=== PATIENT | male | born 1940 | race Caucasian/White ===

== ENCOUNTER → 2018-09-11 | Outpatient (CLI) | payer MEDICARE ==
[~2018-09-11] MED LIST: ASPIR 8181 MG PO; AVODART0.5 MG PO; BYSTOLIC10 MG PO; BYSTOLIC2.5 MG PO; CELEBREX100 MG PO; FLOMAX0.4 MG PO; LEXAPRO10 MG PO; LIPITOR20 MG PO; MINOCYCLINE HCL50 MG PO; OSTEO BI-FLEX1 EAC2 PO; PLAVIX75 MG PO; STOOL SOFTENER50 MG PO; TYLENOL325 MG PO; VITAMIN B COMP1 EACH PO; WELLBUTRIN SR150 MG PO
--- NOTE | 2018-09-11 15:36 | Diagnostic Imaging Report ---
History: Fatigue Comparison studies: CT head and MRI brain 08/11/2010 Technique: Sagittal T2; axial DWI, FLAIR, MPGR, T1, Coronal FLAIR. Intravenous contrast: None Findings: Scalp: Normal in signal . No masses . Bone marrow: Normal in signal intensity. Extra-axial: No masses, no fluid collections. Brain sulci: Appropriate for age. Ventricles: Asymmetric exvacuodilatation of the left lateral ventricle . No hydrocephalus . Parenchyma: Scattered and confluent T2/flair hyperintensities of the periventricular and the white matter. Cortical-based T2/hyperintensity at the left mid frontal and precentral gyri with associated volume loss No masses, hemorrhage, acute or chronic vascular insults. Suprasellar region: No abnormalities. Craniocervical junction: No abnormalities. Patent foramen magnum. No Chiari one malformation. Vessels: Normal flow-voids in the arteries and sinuses.. Partially visualized posterior disc osteophyte complex and ligamentum flavum thickening results in at least moderate canal stenosis at C2-3. Mucous retention cyst at the left maxillary sinus, nonspecific. IMPRESSION: 1. No acute intracranial abnormalities. 2. Moderate chronic microvascular ischemic changes of the white matter. Remote insult at the left middle frontal and inferior precentral gyri. Mild diffuse volume loss 3. Partially visualized moderate canal stenosis at C2-3 Signed by: DR Nando Boykin M.D. on 09/11/2018 3:33 PM
== END ==
LOC: MRI 13:45
PROVIDERS: ATTEND Radiology Neuroradiology
DX: I63.132 Cerebral infarction due to embolism of left carotid artery (principal); G47.61 Periodic limb movement disorder; G31.84 Mild cognitive impairment of uncertain or unknown etiology; R53.83 Other fatigue
CPT/HCPCS: 70551

== ENCOUNTER 2018-11-06 10:32 | Observation (INO) | payer MEDICARE ==
[2018-11-05 11:44] LABS: BASOPHILS % 0.4 % (0.0-1.0); EOSINOPHILS # (AUTO) 0.1 (0.0-0.4); EOSINOPHILS % 1.1 % (0.0-6.0); HEMATOCRIT 43.2 % (38.2-49.6); HEMOGLOBIN 14.5 g/dL (14.0-18.0); LYMPHOCYTES # (AUTO) 1.9 (1.0-3.2); MEAN CORPUSCULAR HEMOGLOBIN 30.2 pg (28-32); MEAN CORPUSCULAR HGB CONC 33.6 g/dL (31-35); MONOCYTES # (AUTO) 0.9 (0.2-0.8); MONOCYTES % 11.5 % (4.4-11.3); NEUTROPHILS # (AUTO) 4.6 (2.1-6.9); NEUTROPHILS % 61.7 % (38.7-80.0); PLATELET COUNT 196 x10e3/uL (140-360); RED CELL DISTRIBUTION WIDTH 15.7 % (11.7-14.4)
[2018-11-05 12:09] LABS: ALANINE AMINOTRANSFERASE 20 IU/L (0-55); ALBUMIN 3.8 g/dL (3.5-5.0); ALBUMIN/GLOBULIN RATIO 1.1 (0.8-2.0); ALKALINE PHOSPHATASE 68 IU/L (40-150); ANION GAP 13.4 mmol/L (8-16); BLOOD UREA NITROGEN 19 mg/dL (7-26); BUN/CREATININE RATIO 18 (6-25); CALCIUM 9.6 mg/dL (8.4-10.2); CARBON DIOXIDE 24 mmol/L (22-29); CHLORIDE 104 mmol/L (98-107); CHOL/HDL RATIO 3.1 (3.9-4.7); CHOLESTEROL 162 MD/DL (0-199); CREATININE, SERUM 1.08 mg/dL (0.72-1.25); EST GLOMERULAR FILTRATION RATE > 60 ML/MIN (60-); GLUCOSE 73 mg/dL (74-118); HDL CHOLESTEROL 53 MG/DL (40-60); POTASSIUM 4.4 mmol/L (3.5-5.1); SODIUM 137 mmol/L (136-145)
[2018-11-05 13:10] LABS: LDL CHOLESTEROL 92 MG/DL (60-130); TRIGLYCERIDES 86 MG/DL (0-149)
[~2018-11-06] VITALS: Ht 185.4 cm; Wt 99.8 kg
[~2018-11-06 10:32] MED LIST changes: -ASPIR 8181 MG PO; -BYSTOLIC10 MG PO; -MINOCYCLINE HCL50 MG PO; -OSTEO BI-FLEX1 EAC2 PO; -STOOL SOFTENER50 MG PO; -TYLENOL325 MG PO; -VITAMIN B COMP1 EACH PO
--- OUTSIDE RECORDS SUMMARY | 2018-11-06 10:34 | XMS REPORT | Clinical Summary ---
Author Author [facility] Address Unknown Phone Unavailable Care Team Providers Care Service Manager Name Role Phone Winnie Ronquillo MD PCP Allergies No Known Allergies Medications End Date Status Medication Sig Dispensed Refills Start Date Active atorvastatin (LIPITOR) 10 0 06/04/201 MG tablet 7 Active tamsulosin (FLOMAX) 0.4 0 06/04/201 mg capsule,extended 7 release 24hr Active buPROPion XL (WELLBUTRIN 0 XL) 300 MG 24 hr tablet 7 Active BYSTOLIC 5 mg tablet TAKE ONE (1) 3 TABLET(S) BY 7 MOUTH ONCE A DAY. Active dutasteride (AVODART) 0.5 TAKE ONE (1) 1 03/17/201 mg capsule CAPSULE BY 7 MOUTH DAILY. Active celecoxib (CeleBREX) 200 0 06/04/201 MG capsule 7 Active clopidogrel (PLAVIX) 75 TAKE ONE (1) 3 201 mg tablet TABLET(S) BY 7 MOUTH ONCE A DAY. Active aspirin (ECOTRIN) 81 MG Take 81 mg by 0 enteric coated tablet mouth daily. Active vit B complex-vitamin Take 1 tablet 0 C-folic acid (NEPHRO-OSCAR by mouth OTC) 0.8 mg tablet daily. Active Problems Not on file Social History Date Tobacco Use Types Packs/Day Years Used Former Smoker Smokeless Tobacco: Never Used Alcohol Use Drinks/Week oz/Week Comments Yes occasional Sex Assigned at Date Recorded Not on file Industry Job Start Date Occupation Not on file Not on file Not on file Travel End Travel History Travel Start No recent travel history available. Last Filed Vital Signs Not on file Plan of Treatment Health Maintenance Due Date Last Done Comments COLON CANCER SCREENING 1992 SHINGLES VACCINES (1 of 1992 2) PNEUMOCOCCAL 2007 POLYSACCHARIDE VACCINE AGE 65 AND OVER PNEUMOCOCCAL-13 2007 INFLUENZA VACCINE 06/19/2018 Results Not on fileafter 11/05/2017 Insurance Payer Benefit Subscriber ID Type Phone Address Plan / Group UHC MEDICARE [employer] xxxxxxxxx HMO [employer] TRE xxxxxxxx Commercial HEALTH & LIFE Advance Directives Patient has advance care planning documents on file. For more information, odell solares contact: Gary Whitmore [address] [place] [address]
--- OUTSIDE RECORDS SUMMARY | 2018-11-06 10:35 | XMS REPORT | Summary of Care ---
Author Author [facility] Organization [facility] Address Unknown Phone Unavailable Encounter TICO Dubois(SCAR) [id number] Date(s): 12/27/16 - 12/27/16 [facility] [address] [place] [phone]- [phone] Discharge Disposition: Home or Self Care Attending Physician: Chester Carlin MD Vital Signs 1 2 3 Most recent to oldest [Reference Range]: 185.42 cm (12/27/16 5:21 PM) 185.42 cm (12/27/16 4:52 PM) Height 146/88 mmHg *HI* (12/27/16 7:00 PM) 153/85 mmHg *HI* (12/27/16 6:45 PM) 145/90 mmHg *HI* (12/27/16 6:30 PM) Blood Pressure [90-140/60-90 mmHg] 15 BRMIN (12/27/16 7:00 PM) 18 BRMIN (12/27/16 6:45 PM) 15 BRMIN (12/27/16 6:30 PM) Respiratory Rate [14-20 BRMIN] 97.727 kg (12/27/16 5:21 PM) 97.727 kg (12/27/16 4:52 PM) Weight 28.43 m2 (12/27/16 5:21 PM) 28.43 m2 (12/27/16 4:52 PM) Body Mass Index Problem List Condition Effective Dates Status Health Status Informant Stroke(Confirmed) Resolved Hyperlipidemia(Confi Resolved rmed) Hypertension(Confirm Resolved ed) MRSA(Confirmed)1, 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 Allergies, Adverse Reactions, Alerts Substance Reaction Severity Status NKDA Active Medications No Known Medications Results BLOOD BANK RESULTS Most recent to 1 oldest [Reference Range]: ABO/Rh A POS *Unknown* (12/27/16 6:30 PM) Antibody Scrn Negative (12/27/16 6:30 PM) ELECTROLYTES Most recent to 1 oldest [Reference Range]: Sodium Lvl [135-145 141 mEq/L mEq/L] (12/27/16 6:37 PM) Potassium Lvl 4.2 mEq/L [3.5-5.1 mEq/L] (12/27/16 6:37 PM) Chloride Lvl [95-109 107 mEq/L mEq/L] (12/27/16 6:37 PM) CO2 [24-32 mEq/L] 25 mEq/L (12/27/16 6:37 PM) AGAP [10.0-20.0 13.2 mEq/L mEq/L] (12/27/16 6:37 PM) CHEM PANEL Most recent to 1 oldest [Reference Range]: Creatinine Lvl 0.81 mg/dL [0.50-1.40 mg/dL] (12/27/16 6:37 PM) eGFR 88 mL/min/1.73m2 1 *NA* (12/27/16 6:37 PM) BUN [7-22 mg/dL] 20 mg/dL (12/27/16 6:37 PM) B/C Ratio [6-25] 25 (12/27/16 6:37 PM) Glucose Lvl [70-99 98 mg/dL mg/dL] (12/27/16 6:37 PM) Total Protein 5.9 g/dL [6.4-8.4 g/dL] *LOW* (12/27/16 6:37 PM) Albumin Lvl [3.5-5.0 3.0 g/dL g/dL] *LOW* (12/27/16 6:37 PM) Globulin [2.7-4.2 2.9 g/dL g/dL] (12/27/16 6:37 PM) A/G Ratio [0.7-1.6] 1.0 (12/27/16 6:37 PM) Calcium Lvl 8.0 mg/dL [8.5-10.5 mg/dL] *LOW* (12/27/16 6:37 PM) ALT [0-65 unit/L] 31 unit/L (12/27/16 6:37 PM) AST [0-37 unit/L] 25 unit/L (12/27/16 6:37 PM) Alk Phos [39-136 60 unit/L unit/L] (12/27/16 6:37 PM) Bili Total [0.2-1.3 0.3 mg/dL mg/dL] (12/27/16 6:37 PM) 1Result Comment: The eGFR is calculated using the CKD-EPI formula. In most young, healthy individuals the eGFR will be >90 mL/min/1.73m2. The eGFR declines with age. An eGFR of 60-89 may be normal in some populations, particularly the elderly, for whom the CKD-EPI formula has not been extensively validated. Use of the eGFR is not recommended in the following populations: Individuals with unstable creatinine concentrations, including patients and those with serious co-morbid conditions. Patients with extremes in muscle mass or diet. The data above are obtained from the National Kidney Disease Education Program ( NKDEP) which additionally recommends that when the eGFR is used in patients with extremes of body mass index for purposes of drug dosing, the eGFR should be mul tiplied by the estimated BMI. IMMUNOLOGY Most recent to 1 oldest [Reference Range]: Prealbumin 21.8 mg/dL [18.0-45.0 mg/dL] (12/27/16 6:37 PM) HEMATOLOGY Most recent to 1 oldest [Reference Range]: WBC [3.7-10.4 K/CMM] 8.1 K/CMM (12/27/16 6:37 PM) RBC [4.70-6.10 4.32 M/CMM M/CMM] *LOW* (12/27/16 6:37 PM) Hgb [14.0-18.0 g/dL] 13.7 g/dL *LOW* (12/27/16 6:37 PM) Hct [42.0-54.0 %] 41.0 % *LOW* (12/27/16 6:37 PM) MCV [80.0-94.0 fL] 94.9 fL *HI* (12/27/16 6:37 PM) MCH [27.0-31.0 pg] 31.7 pg *HI* (12/27/16 6:37 PM) MCHC [32.0-36.0 33.4 g/dL g/dL] (12/27/16 6:37 PM) RDW [11.5-14.5 %] 14.1 % (12/27/16 6:37 PM) Platelet [133-450 140 K/CMM K/CMM] (12/27/16 6:37 PM) MPV [7.4-10.4 fL] 9.5 fL (12/27/16 6:37 PM) Segs [45.0-75.0 %] 70.5 % (12/27/16 6:37 PM) Lymphocytes 18.2 % [20.0-40.0 %] *LOW* (12/27/16 6:37 PM) Monocytes [2.0-12.0 10.0 % %] (12/27/16 6:37 PM) Eosinophils [0.0-4.0 1.0 % %] (12/27/16 6:37 PM) Basophils [0.0-1.0 0.3 % %] (12/27/16 6:37 PM) Segs-Bands # 5.7 K/CMM [1.5-8.1 K/CMM] (12/27/16 6:37 PM) Lymphocytes # 1.5 K/CMM [1.0-5.5 K/CMM] (12/27/16 6:37 PM) Monocytes # [0.0-0.8 0.8 K/CMM K/CMM] (12/27/16 6:37 PM) Eosinophils # 0.1 K/CMM [0.0-0.5 K/CMM] (12/27/16 6:37 PM) PT [12.0-14.7 13.6 seconds seconds] (12/27/16 6:37 PM) INR [0.85-1.17] 1.02 (12/27/16 6:37 PM) PTT [22.9-35.8 29.5 seconds seconds] (12/27/16 6:37 PM) Immunizations No data available for this section Procedures Procedure Date Related Diagnosis Body Site Biceps tunnel cineplasty Ear operations Fusion of joint of cervical spine with internal fixation by anterior approach Hip joint operations1 Hip replacement Laminectomy2 Shoulder joint operations 110 years ago 2X 3 Social History Social History Type Response Substance Abuse Use: None. Alcohol Current, Type Beer. Frequency: 1-2 times per month. Alcohol use interferes with work or home: No. Drinks more than intended: No. Others hurt by drinking: No. Smoking Status Never smoker; Tobacco use per day: 0; Exposure to Tobacco Smoke None; Cigarette Smoking Last 365 Days No; Reg Smoking Cessation Counseling No Assessment and Plan No data available for this section
--- OUTSIDE RECORDS SUMMARY | 2018-11-06 10:35 | XMS REPORT | Continuity of Care Document ---
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 [facility] DIS[facility] L HIP Active 09/11/2016 [facility] Stroke Resolved Problem 05/24/2018 [facility] Hyperlipidemia Resolved Problem 05/24/2018 [facility] Hypertension Resolved Problem 05/24/2018 [facility] BPH (<span ID="[id number]">Confirmed</span>) Active Problem 05/24/2018 [facility] OSTEOARTHRITIS OF HIP, UNSPECIFIED Active [facility] ILLNESS, UNSPECIFIED Active [facility] Medications Medication Details Route Status Patient Instructions Ordering Provider Order Date Source Plavix 37.5 mg, 0.5 tab, Route: PO, Drug form: TAB, Daily, Dosing Weight 97.727, kg, Start date: 01/02/17 9:00:00 [employer] TECHNICIAN, Duration: 30 day, Stop date: 01/31/17 9:00:00 CDTNotes: (Same As: Plavix) No Longer Active 01/02/2017 [facility] Docusate Sodium 100 MG Oral Capsule [Colace] 100 mg=1 cap, PO, BID, PRN Constipation, # 20 cap, 0 Refill(s) Active 01/01/2017 [facility] vancomycin 1.5 gm, 250 mL, Route: IV, Drug form: INJ, Q12H, Dosing Weight 97.727, kg, Start date: 01/01/17 10:30:00 [employer] SUPPORT TECHNICIAN, Stop date: 01/31/17 10:00:00 CDTNotes: TIME CRITICAL MEDICATION Same as: Vancocin-NS (pre mixed) Infusion rate 2000 mg: infuse over 2.5 hours Inactive 01/01/2017 [facility] Lipitor 20 mg, 1 tab, Route: PO, Drug form: TAB, Daily, Dosing Weight 97.727, kg, Start date: 12/31/16 20:00:00 [employer] SUPPORT TECHNICIAN, Duration: 30 day, Stop date: 01/29/17 20:00:00 CDTNotes: (Same As: Lipitor) No Longer Active 01/01/2017 [facility] fluconazole fluconazole, 400 mg / 2 tablets, Drug form: MISC, Route: PO, Q24H, 12/31/16 16:00:00 [employer] SUPPORT TECHNICIAN, Duration: 30 day, Stop date: 01/29/17 16:00:00 CDT No Longer Active 12/31/2016 [facility] ferrous sulfate 325 mg, 1 tab, Route: PO, Drug form: TAB, ONCE, Start date: 12/31/16 11:05:00 [employer] SUPPORT TECHNICIAN, Stop date: 12/31/16 11:05:00 CSTNotes: Give with food. iron elemental [id number] as ferrous sulfate Dose=___mg eleme ntal iron Inactive 12/31/2016 [facility] Vancomycin 1.25 gm, 250 mL, Route: IV, Drug form: INJ, Q12H, Dosing Weight 97.727, kg, Start date: 12/31/16 10:00:00 [employer] SUPPORT TECHNICIAN, Duration: 30 day, Stop date: 01/29/17 22:00:00 CDTNotes: TIME CRITICAL MEDICATION Same as: Vancocin-NS (premixed) Infusion rate 2000 mg: infuse over 2.5 hours No Longer Active 12/31/2016 [facility] vancomycin + sodium chloride 0.9% INJ 250 mL 1,000 mg, Route: IVPB, [id number], Start date: 12/31/16 9:00:00 W[employer]OWS [employer] SUPPORT TECHNICIAN, Duration: 30 day, Stop date: 01/29/17 21:00:00 CDTNotes: TIME CRITICAL MEDICATION (Same As: Vancocin) Infusion rate 2001 mg: infuse over 2.5 hours MEDICATION WASTE Product Size: 1000 mg Product Wasted: ___ mg Inactive 12/31/2016 [facility] isoniazid 150 MG / Rifampin 300 MG Oral Capsule [Rifamate] 2 cap, Route: PO, Dosing Weight 97.727, kg, Daily, Start date: 12/31/16 9:00:00 [employer] SUPPORT TECHNICIAN, Duration: 30 day, Stop date: 01/29/17 9:00:00 CDT No Longer Active 12/31/2016 [facility] ferrous sulfate 325 mg, 1 tab, Route: PO, Drug form: ECTAB, Daily, Dosing Weight 97.727, kg, Start date: 12/31/16 9:00:00 [employer] SUPPORT TECHNICIAN, Stop date: 01/29/17 9:00:00 CDTNotes: Give with food. "Do Not Crush" No Longer Active 12/31/2016 [facility] sodium chloride 0.9% 1000 ml INJ 1,000 mL 1,000 mL, Rate: 500 ml/hr, Infuse over: 2 hr, Route: IV, Dosing Weight 97.727 kg, Total Volume: 1,000, Start date: 12/31/16 7:55:00 [employer] SUPPORT TECHNICIAN, Duration: 1 doses or times, Stop date: 12/31/16 9:54:00 [employer] SUPPORT TECHNICIAN Inactive 12/31/2016 [facility] Rifampin 600 mg, 4 cap, Route: PO, Drug form: CAP, [id number], Dosing Weight 97.727, kg, Start date: 12/30/16 20:00:00 [employer] SUPPORT TECHNICIAN, Duration: 30 day, Stop date: 01/28/17 20:00:00 CDTNotes: (Same as: Rifadin) No Longer Active 12/31/2016 [facility] Vancomycin 1 gm, Route: IVPB, Drug form: INJ, [id number], Dosing Weight 97.727, kg, Start date: 12/30/16 19:00:00 WINDOWS SERVER SUPPORT TECHNICIAN, Stop date: 01/29/17 21:00:00 CDTNotes: TIME CRITICAL MEDICATION (Same As: Vancocin) Infusion rate 2001 mg: infuse over 2.5 hours MEDICATION WASTE Product Size: 1000 mg Product Wasted: ___ mg No Longer Active 12/31/2016 [facility] Diflucan 400 mg, 8 tab, Route: PO, Drug form: TAB, Daily, Dosing Weight 97.727, kg, Start date: 12/30/16 16:00:00 [employer] SUPPORT TECHNICIAN, Duration: 30 day, Stop date: 01/28/17 16:00:00 CDT, Pediatric DosingNotes: (Same as: Diflucan) No Longer Active 12/30/2016 [facility] Aspirin 325 MG Enteric Coated Tablet 325 mg, 1 tab, Route: PO, Drug form: ECTAB, BID, Dosing Weight 97.727, kg, Start date: 12/30/16 9:00:00 [employer] SUPPORT TECHNICIAN, Duration: 30 day, Stop date: 01/28/17 17:00:00 CDTNotes: (Do Not Crush) Do not crush or chew. No Longer Active 12/30/2016 [facility] Zofran 4 mg, 2 mL, Route: IV, Drug form: INJ, Q8H, Dosing Weight 97.727, kg, Start date: 12/30/16 0:00:00 [employer] SUPPORT TECHNICIAN, Duration: 3 doses or times, Stop date: 12/30/16 16:00:00 CSTNotes: (Same as: Zofran) MEDICATION WASTE Product Size: 4 mg Product Wasted: ___ mg Inactive 12/30/2016 [facility] Vancomycin 1,000 mg, Route: IVPB, Q12H, Dosing Weight 97.727, kg, Time Critical Medication, Start date: 12/29/16 22:00:00 [employer] SUPPORT TECHNICIAN, Duration: 2 doses or times, Stop date: 12/30/16 10:00:00 WINDOWS SERV[employer] SUPPORT TECHNICIAN, Pharmacy to adjust dose for renal functionNotes: TIME CRITICAL MEDICATION (Same As: Vancocin) Infusion rate 2001 mg: infuse over 2.5 hours MEDICATION WASTE Product Size: 1000 mg Product Wasted: ___ mg No Longer Active 12/30/2016 [facility] rivaroxaban 10 mg, Route: PO, Q24H, Dosing Weight 97.727, kg, Start date: 12/29/16 18:33:00 [employer] SUPPORT TECHNICIAN, Duration: 30 day, Stop date: 01/27/17 18:33:00 [employer] SUPPORT TECHNICIAN Inactive 12/30/2016 [facility] Saline Flush 0.9% 10 mL, Route: IVP, Drug Form: INJ, Dosing Weight 97.727, kg, Q8H, Start date: 12/29/16 16:00:00 [employer] SUPPORT TECHNICIAN, Duration: 30 day, Stop date: 01/28/17 8:00:00 CDTNotes: preservative free. No Longer Active 12/29/2016 [facility] Lidocaine Hydrochloride 10 MG/ML Injectable Solution 50 mg, 5 mL, Route: INTRADERM, Drug Form: INJ, Dosing Weight 97.727, kg, ONCALL, Start date: 12/29/16 15:00:00 [employer] SUPPORT TECHNICIAN, Duration: 1 day, Stop date: 12/30/16 14:59:00 CSTNotes: (Same as: Xylocaine) No Longer Active 12/29/2016 [facility] Cefazolin 2 gm, 100 mL, Route: IVPB, Drug form: INJ, Q6H, Dosing Weight 97.727, kg, Start date: 12/29/16 15:00:00 [employer] SUPPORT TECHNICIAN, Duration: 6 doses or times, Stop date: 12/30/16 21:00:00 CSTNotes: Same as: Ancef Inactive 12/29/2016 [facility] Saline Flush 0.9% 10 mL, Route: IVP, Drug Form: INJ, Dosing Weight 97.727, kg, PRN, PRN Line Flush, Start date: 12/29/16 14:46:00 [employer] SUPPORT TECHNICIAN, Duration: 30 day, Stop date: 01/28/17 15:45:00 CDTNotes: preservative free. No Longer Active 12/29/2016 [facility] metoprolol tartrate 12.5 mg, 0.5 tab, Route: PO, Drug form: TAB, Q12H, Dosing Weight 97.727, kg, Start date: 12/29/16 14:00:00 [employer] SUPPORT TECHNICIAN, Duration: 30 day, Stop date: 01/28/17 9:00:00 CDTNotes: (Same as: Lopressor) No Longer Active 12/29/2016 [facility] Hydralazine 10 mg, 0.5 mL, Route: IVP, Drug form: INJ, Q20Min, Dosing Weight 97.727, kg, PRN Elevated BP, Start date: 12/29/16 12:42:00 [employer] SUPPORT TECHNICIAN, Duration: 2 doses or times, Stop date: Limited # of timesNotes: (Same as: Apresoline) Push over 5 minutes Inactive 12/29/2016 [facility] Metoprolol 1 mg, 1 mL, Route: IVP, Drug form: INJ, Q5Min, Dosing Weight 97.727, kg, PRN Other -See Comment, Start date: 12/29/16 12:42:00 [employer] SUPPORT TECHNICIAN, Duration: 5 doses or times, Stop date: Limited # of timesNotes: (Same as: Lopressor) Push over 2 minutes Inactive 12/29/2016 [facility] Labetalol 10 mg, 2 mL, Route: IVP, Drug form: INJ, Q5Min, Dosing Weight 97.727, kg, PRN Elevated BP, Start date: 12/29/16 12:42:00 [employer] SUPPORT TECHNICIAN, Duration: 5 doses or times, Stop date: Limited # of times Inactive 12/29/2016 [facility] Morphine 2 mg, 0.2 mL, Route: IVP, Drug form: INJ, Q5Min, Dosing Weight 97.727, kg, PRN Pain Score 4-6, Start date: 12/29/16 12:42:00 [employer] SUPPORT TECHNICIAN, Duration: 5 doses or times, Stop date: Limited # of timesNotes: (Same as:MORPhine Sulfate) Inactive 12/29/2016 [facility] Promethazine 6.25 mg, 0.25 mL, Route: IVPB, Drug form: INJ, ONCE, Dosing Weight 97.727, kg, PRN Nausea & Vomiting, Start date: 12/29/16 12:42:00 CSTNotes: Do not give IV push. (Same as: Phenergan) Inactive 12/29/2016 [facility] Flumazenil 0.2 mg, 2 mL, Route: IVP, Drug form: INJ, PRN, Dosing Weight 97.727, kg, PRN Benzodiazepine Reversal, Initial dose, Start date: 12/29/16 12:42:00 [employer] SERVER SUPPORT TECHNICIAN, Duration: 30 day, Stop date: 01/28/17 13:41:00 C DTNotes: (Same as: Romazicon) Inactive 12/29/2016 [facility] Ephedrine 5 mg, 0.1 mL, Route: IVP, Drug form: INJ, Q5Min, Dosing Weight 97.727, kg, PRN Low Blood Pressure, Start date: 12/29/16 12:42:00 [employer] SUPPORT TECHNICIAN, Duration: 30 day, Stop date: 01/28/17 13:41:00 CDTNotes: (Same as: ePHEDrine Sulfate) Inactive 12/29/2016 [facility] Naloxone 0.4 mg, 1 mL, Route: IVP, Drug form: INJ, Q2MIN, Dosing Weight 97.727, kg, PRN Narcotic Reversal, Start date: 12/29/16 12:42:00 [employer]ER SUPPORT TECHNICIAN, Duration: 8 doses or times, Stop date: Limited # of timesNotes: Same as Narcan Inactive 12/29/2016 [facility] Atropine 0.2 mg, 2 mL, Route: IVP, Drug form: INJ, Q5Min, Dosing Weight 97.727, kg, PRN Other -See Comment, as needed; for symptomatic pulse rate Inactive 12/29/2016 [facility] Meperidine 12.5 mg, 0.25 mL, Route: IVP, Drug form: INJ, Q30Min, Dosing Weight 97.727, kg, PRN Other -See Comment, For shivering, Start date: 12/29/16 12:42:00 [employer] SUPPORT TECHNICIAN, Duration: 2 doses or times, Stop date: Limited # of timesNotes: (Same as: Demerol) "Use Precaution in Elderly, Seizure disorders, and Renal impairment" Inactive 12/29/2016 [facility] Ondansetron 4 mg, 2 mL, Route: IVP, Drug form: INJ, ONCE, Dosing Weight 97.727, kg, PRN Nausea & Vomiting, Start date: 12/29/16 12:42:00 CSTNotes: (Same as: Zojacques) MEDICATION WASTE Product Size: 4 mg Product Wasted: ___ mg Inactive 12/29/2016 [facility] Hydromorphone 0.5 mg, 0.25 mL, Route: IVP, Drug form: INJ, Q5Min, Dosing Weight 97.727, kg, PRN Pain Score 7-10, Start date: 12/29/16 12:42:00 [employer] SUPPORT TECHNICIAN, Duration: 4 doses or times, Stop date: Limited # of timesNotes: S ruben as Dilaudid Inactive 12/29/2016 [facility] Ondansetron 4 mg, 2 mL, Route: IVP, Drug form: INJ, Q6H, Dosing Weight 97.727, kg, PRN Nausea & Vomiting, Start date: 12/29/16 12:27:00 [employer] SUPPORT TECHNICIAN, Duration: 30 day, Stop date: 01/28/17 12:26:00 CDTNotes: (Same as: Zofran) MEDICATION WASTE Product Size: 4 mg Product Wasted: ___ mg No Longer Active 12/29/2016 [facility] Acetaminophen 325 MG / Hydrocodone Bitartrate 5 MG Oral Tablet [Mosca 5/325] 2 tab, Route: PO, Drug Form: TAB, Dosing Weight 97.727, kg, Q4H, PRN Pain Score 7-10, Start date: 12/29/16 12:27:00 [employer]OWS SERV[employer] SUPPORT TECHNICIAN, Duration: 30 day, Stop date: 01/28/17 12:26:00 CDTNotes: (Same as: Mosca 325/5) Do not exceed 4gm/day of acetaminophen. No Longer Active 12/29/2016 [facility] Tylenol 650 mg, 2 tab, Route: PO, Drug form: TAB, Q6H, Dosing Weight 97.727, kg, PRN Pain Score 1-3, Start date: 12/29/16 12:27:00 WINDOWS [employer]ER SUPPORT TECHNICIAN, Duration: 30 day, Stop date: 01/28/17 12:26:00 CDTNotes: Do not exceed 4 gm/day. (Same as: Tylenol) No Longer Active 12/29/2016 [facility] Famotidine 20 mg, 1 tab, Route: PO, Drug form: TAB, BID, Dosing Weight 97.727, kg, PRN Indigestion, Start date: 12/29/16 12:27:00 WINDOWS SERVER SUPPORT TECHNICIAN, Duration: 30 day, Stop date: 01/28/17 12:26:00 CDTNotes: (Same as: Pepcid) No Longer Active 12/29/2016 [facility] Acetaminophen 325 MG / Hydrocodone Bitartrate 10 MG Oral Tablet 1 tab, Route: PO, Drug Form: TAB, Dosing Weight 97.727, kg, Q4H, PRN Pain Score 4-6, Start date: 12/29/16 12:27:00 WINDOWS SERVER SUPPORT TECHNICIAN, Duration: 30 day, Stop date: 01/28/17 12:26:00 CDTNotes: Do not exceed 4gm/day of acetaminophen. (Same as: Mosca 325/10) No Longer Active 12/29/2016 [facility] Morphine 4 mg, 0.4 mL, Route: IVP, Drug form: INJ, Q4H, Dosing Weight 97.727, kg, PRN Pain Score 7-10, Start date: 12/29/16 12:27:00 WINDOWS SERVER SUPPORT TECHNICIAN, Duration: 30 day, Stop date: 01/28/17 12:26:00 CDTNotes: (Same as:MORPhine Sulfate) No Longer Active 12/29/2016 [facility] POLYETHYLENE GLYCOL 3350 17 gm, 1 pkt, Route: PO, Drug form: PWDR, Daily, Dosing Weight 97.727, kg, PRN Constipation, Start date: 12/29/16 12:27:00 WINDOWS SERVER SUPPORT TECHNICIAN, Duration: 30 day, Stop date: 01/28/17 12:26:00 CDTNotes: Dissolve in 8 oz of water or juice. (Same as: Miralax) No Longer Active 12/29/2016 [facility] Bisacodyl 10 mg, 1 supp, Route: VA, Drug form: SUPP, Daily, Dosing Weight 97.727, kg, PRN Constipation, Start date: 12/29/16 12:27:00 WINDOWS SERVER SUPPORT TECHNICIAN, Duration: 30 day, Stop date: 01/28/17 12:26:00 CDTNotes: (Same As: Dulcolax, Bisco-Lax) No Longer Active 12/29/2016 [facility] sodium chloride 0.9% 1000 ml INJ 1,000 mL 1,000 mL, Rate: 85 ml/hr, Infuse over: 11.8 hr, Route: IV, Dosing Weight 97.727 kg, Total Volume: 1,000, When PO intake adequate, okay to saline lock, Start date: 12/29/16 12:27:00 WINDOWS SERVER SUPPORT TECHNICIAN, Duration: 30 day, Stop date: 01/28/17 12:26:00 CDT No Longer Active 12/29/2016 [facility] Lactated Ringers 1,000 mL 1,000 mL, Rate: 50 ml/hr, Infuse over: 20 hr, Route: IV, Dosing Weight 97.727 kg, Total Volume: 1,000, Start date: 12/29/16 10:27:00 WINDOWS SERVER SUPPORT TECHNICIAN, Duration: 30 day, Stop date: 01/28/17 10:26:00 CDT Inactive 12/29/2016 [facility] Ancef 2 gm, Route: IV, ONCE, Dosing Weight 97.727, kg, Start date: 12/29/16 10:26:00 WINDOWS SERVER SUPPORT TECHNICIAN, Stop date: 12/29/16 10:26:00 WINDOWS SERVER SUPPORT TECHNICIAN Inactive 12/29/2016 [facility] Ancef 2 gm, 100 mL, Route: IV, Drug form: INJ, ONCE, Dosing Weight 97.727, kg, Start date: 12/29/16 10:25:00 WINDOWS SERVER SUPPORT TECHNICIAN, Stop date: 12/29/16 10:25:00 CSTNotes: Same as Ancef Inactive 12/29/2016 [facility] Vancomycin 1.5 gm, 250 mL, Route: IV, Drug form: INJ, ONCE, Dosing Weight 97.727, kg, Start date: 12/29/16 10:25:00 WINDOWS SERVER SUPPORT TECHNICIAN, Stop date: 12/29/16 10:25:00 CSTNotes: TIME CRITICAL MEDICATION Same as: Vancocin-NS (pre mixed) Infusion rate 2001 mg: infuse over 2.5 hours No Longer Active 12/29/2016 [facility] ropivacaine 100 mL, Route: InFILtration(local), Drug Form: INJ, ONCE, Start date: 12/29/16 8:22:00 WINDOWS SERVER SUPPORT TECHNICIAN, Stop date: 12/29/16 8:22:00 CSTNotes: NOT FOR IV use Ropivacaine 5 mg/mL (49.25 mL) Epinephrine 1 m g/mL (0.5 mL) Clonidine 0.1 mg/mL (0.8 mL) Ketorolac 30 mg/mL (1 mL) Normal Saline 48.45 mL Inactive 12/29/2016 [facility] Flomax 0.4 mg, 1 cap, Route: PO, Drug form: CAP, Daily, Dosing Weight 97.727, kg, Start date: 12/28/16 9:00:00 WINDOWS SERVER SUPPORT TECHNICIAN, Duration: 30 day, Stop date: 01/26/17 9:00:00 CSTNotes: (Same As: Flomax) "Do Not Crush" No Longer Active 12/28/2016 [facility] Bystolic 2.5 mg, 0.5 tab, Route: PO, Drug form: TAB, Daily, Dosing Weight 97.727, kg, Start date: 12/28/16 9:00:00 WINDOWS SERVER SUPPORT TECHNICIAN, Duration: 30 day, Stop date: 01/26/17 9:00:00 CSTNotes: (same as: Bystolic) No Longer Active 12/28/2016 [facility] Vitamin B-100 1 tab, Route: PO, Drug Form: TAB, Dosing Weight 97.727, kg, Daily, Start date: 12/28/16 9:00:00 WINDOWS SERVER SUPPORT TECHNICIAN, Duration: 30 day, Stop date: 01/26/17 9:00:00 CSTNotes: (Same As: B-Complex) No Longer Active 12/28/2016 [facility] Mobic 15 mg, 2 tab, Route: PO, Drug form: TAB, Daily, Dosing Weight 97.727, kg, Start date: 12/28/16 9:00:00 WINDOWS SERVER SUPPORT TECHNICIAN, Duration: 30 day, Stop date: 01/26/17 9:00:00 CSTNotes: (Same as: Mobic) No Longer Active 12/28/2016 [facility] Lexapro 20 mg, 2 tab, Route: PO, Drug form: TAB, Daily, Dosing Weight 97.727, kg, Start date: 12/28/16 9:00:00 WINDOWS SERVER SUPPORT TECHNICIAN, Duration: 30 day, Stop date: 01/26/17 9:00:00 CSTNotes: (Same as: Lexapro) No Longer Active 12/28/2016 [facility] Avodart 0.5 mg, 1 cap, Route: PO, Drug form: CAP, Daily, Dosing Weight 97.727, kg, Start date: 12/28/16 9:00:00 WINDOWS SERVER SUPPORT TECHNICIAN, Stop date: 01/25/17 21:00:00 CSTNotes: Non-Formulary Drug. (Same As: Avodart) (Do Not Crush) No Longer Active 12/28/2016 [facility] Lipitor 20 mg, 1 tab, Route: PO, Drug form: TAB, Daily, Dosing Weight 97.727, kg, Start date: 12/28/16 9:00:00 WINDOWS SERVER SUPPORT TECHNICIAN, Duration: 30 day, Stop date: 01/26/17 9:00:00 CSTNotes: (Same As: Lipitor) No Longer Active 12/28/2016 [facility] Wellbutrin XL 300 mg, 2 tab, Route: PO, Drug form: ERTAB, Q24H, Dosing Weight 97.727, kg, Start date: 12/28/16 9:00:00 WINDOWS SERVER SUPPORT TECHNICIAN, Stop date: 01/26/17 9:00:00 CSTNotes: (Same as: Wellbutrin XL) "Do Not Crush" No Longer Active 12/28/2016 [facility] Docusate 100 mg, 1 cap, Route: PO, Drug form: CAP, BID, Dosing Weight 97.727, kg, Start date: 12/28/16 9:00:00 WINDOWS SERVER SUPPORT TECHNICIAN, Duration: 30 day, Stop date: 01/26/17 17:00:00 CSTNotes: (Same as: Colace) (Do Not Crush) No Longer Active 12/28/2016 [facility] Acetaminophen 325 MG / Hydrocodone Bitartrate 5 MG Oral Tablet [Mosca 5/325] 1 tab, Route: PO, Drug Form: TAB, Dosing Weight 97.727, kg, Q6H, PRN Pain Score 1-3, Start date: 12/27/16 23:05:00 WINDOWS SERVER SUPPORT TECHNICIAN, Duration: 30 day, Stop date: 01/26/17 23:04:00 CSTNotes: (Same as: Mosca 325/5) Do not exceed 4gm/day of acetaminophen. No Longer Active 12/28/2016 [facility] influenza virus vaccine, inactivated 0.5 mL, Route: IM, Drug Form: SUSP, ONCALL, Start date: 12/27/16 23:00:00 WINDOWS SERVER SUPPORT TECHNICIAN, Duration: 1 doses or timesNotes: (Same as: Fluzone Quadrivalent, Fluarix Quadrivalent) For 3 years of age and older (0.5 mL IM) Shake well before use No Longer Active 12/28/2016 [facility] Ondansetron 4 MG Disintegrating Tablet 4 mg, 1 tab, Route: PO, Drug form: TABDIS, Q8H, Dosing Weight 97.727, kg, PRN Nausea, Start date: 12/27/16 22:27:00 WINDOWS SERVER SUPPORT TECHNICIAN, Duration: 30 day, Stop date: 01/26/17 22:26:00 CSTNotes: (Same as: Zofran ODT) No Longer Active 12/28/2016 [facility] atorvastatin 20 mg, 1 tab, Route: PO, Drug form: TAB, Bedtime, Dosing Weight 95.455, kg, Start date: 09/12/16 21:00:00 CDT, Duration: 30 day, Stop date: 10/11/16 21:00:00 CSTNotes: (Same As: Lipitor) Inactive 09/13/2016 [facility] Dexamethasone 10 mg, 1 mL, Route: IVP, Drug form: INJ, ONCE, kg, Start date: 09/12/16 19:39:00 CDT, Stop date: 09/12/16 19:39:00 CDTNotes: MEDICATION WASTE Product Size: 10 mg Product Wasted: ___ mg Inactive 09/13/2016 [facility] Sulfamethoxazole 800 MG / Trimethoprim 160 MG Oral Tablet [Bactrim] 1 tab, PO, BID, X 7 day, # 14 tab, 0 Refill(s), Pharmacy: [facility] Active 09/12/2016 [facility] meloxicam 15 MG Oral Tablet [Mobic] 15 mg=1 tab, PO, Daily, # 30 tab, 0 Refill(s), Pharmacy: [facility] Active 09/12/2016 [facility] Aspirin 81 MG Chewable Tablet 81 mg=1 tab, PO, BID, # 56 tab, 0 Refill(s), Pharmacy: [place] [id number] Active 09/12/2016 [facility] Budeprion XL 300 mg, 1 tab, Route: PO, Drug form: ERTAB, Daily, Dosing Weight 95.455, kg, Start date: 09/12/16 9:00:00 CDT, Duration: 30 day, Stop date: 10/11/16 9:00:00 CSTNotes: (Same as: Wellbutrin XL) "Do Not Crush" Inactive 09/12/2016 [facility] Vitamin B-100 1 tab, Route: PO, Drug Form: TAB, Dosing Weight 95.455, kg, Daily, Start date: 09/12/16 9:00:00 CDT, Duration: 30 day, Stop date: 10/11/16 9:00:00 CSTNotes: (Same as:One Tab Daily, Tab-A-Viki + Beta Carotene) Give with food. Inactive 09/12/2016 [facility] Docusate 100 mg, 1 cap, Route: PO, Drug form: CAP, BID, Dosing Weight 95.455, kg, Start date: 09/12/16 9:00:00 CDT, Duration: 30 day, Stop date: 10/11/16 17:00:00 CSTNotes: (Same as: Colace) (Do Not Crush) Inactive 09/12/2016 [facility] Aspirin 81 MG Chewable Tablet 81 mg, 1 tab, Route: PO, Drug form: CHEWTAB, BID, kg, Start date: 09/12/16 9:00:00 CDT, Duration: 30 day, Stop date: 10/11/16 17:00:00 CSTNotes: Take with food. Inactive 09/12/2016 [facility] Dutasteride 0.5 mg, 1 cap, Route: PO, Drug form: CAP, Daily, Dosing Weight 95.455, kg, Start date: 09/12/16 9:00:00 CDT, Duration: 30 day, Stop date: 10/11/16 9:00:00 CSTNotes: Non-Formulary Drug. (Same As: Avodart) (Do Not Crush) Inactive 09/12/2016 [facility] Escitalopram 20 mg, 2 tab, Route: PO, Drug form: TAB, Daily, Dosing Weight 95.455, kg, Start date: 09/12/16 9:00:00 CDT, Duration: 30 day, Stop date: 10/11/16 9:00:00 CSTNotes: (Same as: Lexapro) Inactive 09/12/2016 [facility] nebivolol 2.5 mg, 0.5 tab, Route: PO, Drug form: TAB, Daily, Dosing Weight 95.455, kg, Start date: 09/12/16 9:00:00 CDT, Duration: 30 day, Stop date: 10/11/16 9:00:00 CSTNotes: (same as: Bystolic) Inactive 09/12/2016 [facility] Aspirin 81 MG Enteric Coated Tablet 81 mg, Route: PO, Daily, Dosing Weight 95.455, kg, Start date: 09/12/16 9:00:00 CDT, Duration: 30 day, Stop date: 10/11/16 9:00:00 [employer] No Longer Active 09/12/2016 [facility] polymyxin B sulfate + sodium chloride 0.9%, adv 250 ml 250 mL 125,000 unit, Route: IRRIG, Drug form: PDR/INJ, ONCE, Start date: 09/12/16 8:54:00 CDT, Stop date: 09/12/16 8:54:00 CDTNotes: (Same as: Polymyxin B Sulfate) Inactive 09/12/2016 [facility] vancomycin + sodium chloride 0.9%, adv 250 ml 250 mL 500 mg, Route: IRRIG, Drug form: PDR/INJ, ONCE, Start date: 09/12/16 8:53:00 CDT, Stop date: 09/12/16 8:53:00 CDTNotes: TIME CRITICAL MEDICATION (Same As: Vancocin) Inactive 09/12/2016 [facility] ropivacaine 100 mL, Route: InFILtration(local), Drug Form: INJ, ONCE, Start date: 09/12/16 8:52:00 CDT, Stop date: 09/12/16 8:52:00 CDTNotes: NOT FOR IV use Ropivacaine 5 mg/mL (49.25 mL) Epinephrine 1 m g/mL (0.5 mL) Clonidine 0.1 mg/mL (0.8 mL) Ketorolac 30 mg/mL (1 mL) Normal Saline 48.45 mL Inactive 09/12/2016 [facility] tamsulosin 0.4 mg, 1 cap, Route: PO, Drug form: CAP, After Breakfast, Dosing Weight 95.455, kg, Start date: 09/12/16 8:30:00 CDT, Duration: 30 day, Stop date: 10/11/16 8:30:00 CSTNotes: (Same As: Flomax) "Do N ot Crush" Inactive 09/12/2016 [facility] Zofran 4 mg, 2 mL, Route: IV, Drug form: INJ, Q8H, kg, Start date: 09/12/16 8:00:00 CDT, Duration: 3 doses or times, Stop date: 09/13/16 0:00:00 CDTNotes: (Same as: Zofran) MEDICATION WASTE Product Size: 4 mg Product Wasted: ___ mg Inactive 09/12/2016 [facility] Tranexamic Acid 1.95 gm, 3 tab, Route: PO, Drug form: TAB, ONCE, kg, Start date: 09/12/16 1:39:00 CDT, Stop date: 09/12/16 1:39:00 CDTNotes: (Same as: Lysteda) Non-Formulary Inactive 09/12/2016 [facility] Ondansetron 4 mg, 2 mL, Route: IV, Drug form: INJ, PRE OP, Dosing Weight 95.455, kg, Start date: 09/11/16 22:00:00 CDTNotes: (Same as: Zofran) MEDICATION WASTE Product Size: 4 mg Product Wasted: ___ mg No Longer Active 09/12/2016 [facility] Celebrex 400 mg, Route: PO, Drug form: CAP, PRE OP, Dosing Weight 95.455, kg, Start date: 09/11/16 22:00:00 CDT Inactive 09/12/2016 [facility] Ancef 2 gm, 100 mL, Route: IV, Drug form: INJ, PRE OP, kg, Start date: 09/11/16 22:00:00 CDTNotes: Same as Ancef Inactive 09/12/2016 [facility] ceFAZolin (SCIP) 2 gm, 100 mL, Route: IVPB, Drug form: INJ, Q6H, kg, Start date: 09/11/16 22:00:00 CDT, Duration: 6 doses or times, Stop date: 09/13/16 4:00:00 CDTNotes: Same as Ancef No Longer Active 09/12/2016 [facility] Dexamethasone 10 mg, 1 mL, Route: IV, Drug form: INJ, PRE OP, Dosing Weight 95.455, kg, Start date: 09/11/16 22:00:00 CDTNotes: MEDICATION WASTE Product Size: 10 mg Product Wasted: ___ mg Inactive 09/12/2016 [facility] Ondansetron 0.8 MG/ML Oral Solution [Zofran] 4 mg, 1 tab, Route: IV, Drug form: TABDIS, PRE OP, Dosing Weight 95.455, kg, Start date: 09/11/16 22:00:00 CDTNotes: (Same as: Zofran ODT) Inactive 09/12/2016 [facility] Ondansetron 4 mg, 2 mL, Route: IVP, Drug form: INJ, ONCE, Dosing Weight 95.455, kg, PRN Nausea & Vomiting, Start date: 09/11/16 21:25:00 CDTNotes: (Same as: Zofran) MEDICATION WASTE Product Size: 4 mg Product Wasted: ___ mg Inactive 09/12/2016 [facility] Hydromorphone 0.5 mg, 0.25 mL, Route: IVP, Drug form: INJ, Q5Min, Dosing Weight 95.455, kg, PRN Pain Score 7-10, Start date: 09/11/16 21:25:00 CDT, Duration: 8 doses or times, Stop date: Limited # of timesNotes: S ruben as Dilaudid Inactive 09/12/2016 [facility] Naloxone 0.4 mg, 1 mL, Route: IVP, Drug form: INJ, Q2MIN, Dosing Weight 95.455, kg, PRN Narcotic Reversal, Start date: 09/11/16 21:25:00 CDT, Duration: 8 doses or times, Stop date: Limited # of timesNotes: Same as Narcan No Longer Active 09/12/2016 [facility] Flumazenil 0.2 mg, 2 mL, Route: IVP, Drug form: INJ, PRN, Dosing Weight 95.455, kg, PRN Benzodiazepine Reversal, Initial dose, Start date: 09/11/16 21:25:00 CDT, Duration: 1 day, Stop date: 09/12/16 21:24:00 CD TNotes: (Same as: Romazicon) Inactive 09/12/2016 [facility] celecoxib 200 mg, 1 cap, Route: PO, Drug form: CAP, [id number], Dosing Weight 95.455, kg, Start date: 09/11/16 20:00:00 CDT, Duration: 30 day, Stop date: 10/11/16 8:00:00 CSTNotes: NSAID. Please check indication. Not for seizure. (Same As: CeleBREX) No Longer Active 09/12/2016 [facility] Acetaminophen 325 MG / tramadol hydrochloride 37.5 MG Oral Tablet [Ultracet] 2 tab, Route: PO, Drug Form: TAB, kg, Q4H, PRN Pain Score 7- 10, Start date: 09/11/16 19:39:00 CDT, Duration: 30 day, Stop date: 10/11/16 19:38:00 WINDOWS SERVER SUPPORT TECHNICIAN Inactive 09/12/2016 [facility] POLYETHYLENE GLYCOL 3350 17 gm, 1 pkt, Route: PO, Drug form: PWDR, Daily, kg, PRN Constipation, Start date: 09/11/16 19:39:00 CDT, Duration: 30 day, Stop date: 10/11/16 19:38:00 CSTNotes: Dissolve in 8 oz of water or juice. (Same as: Miralax) No Longer Active 09/12/2016 [facility] Bisacodyl 10 mg, 1 supp, Route: VA, Drug form: SUPP, Daily, Dosing Weight 95.455, kg, PRN Constipation, Start date: 09/11/16 19:39:00 CDT, Duration: 30 day, Stop date: 10/11/16 19:38:00 CSTNotes: (Same As: Dulcolax, Bisco-Lax) No Longer Active 09/12/2016 [facility] Morphine 5 mg, 0.5 mL, Route: IVP, Drug form: INJ, Q4H, kg, PRN Pain Score 7-10, Start date: 09/11/16 19:39:00 CDT, Duration: 30 day, Stop date: 10/11/16 19:38:00 CSTNotes: (Same as:MORPhine Sulfate) No Longer Active 09/12/2016 [facility] Ondansetron 4 mg, 2 mL, Route: IVP, Drug form: INJ, Q6H, kg, PRN Nausea & Vomiting, Start date: 09/11/16 19:39:00 CDT, Duration: 30 day, Stop date: 10/11/16 19:38:00 CSTNotes: (Same as: Zofran) MEDICATION WASTE Product Size: 4 mg Product Wasted: ___ mg No Longer Active 09/12/2016 [facility] Oxycodone Hydrochloride 5 MG Oral Tablet 5 mg, 1 tab, Route: PO, Drug form: TAB, Q4H, Dosing Weight 95.455, kg, PRN Pain Score 4-6, Start date: 09/11/16 19:39:00 CDT, Duration: 30 day, Stop date: 10/11/16 19:38:00 CSTNotes: (Same as: Roxicodone) No Longer Active 09/12/2016 [facility] Acetaminophen 325 MG / Hydrocodone Bitartrate 10 MG Oral Tablet 1 tab, Route: PO, Drug Form: TAB, kg, Q4H, PRN Pain Score 1-3, Start date: 09/11/16 19:39:00 CDT, Duration: 30 day, Stop date: 10/11/16 19:38:00 CSTNotes: Do not exceed 4gm/day of acetaminophen. (Same as: Mosca 325/10) No Longer Active 09/12/2016 [facility] sodium chloride 0.9% 1000 ml INJ 1,000 mL 1,000 mL, Rate: 85 ml/hr, Infuse over: 11.8 hr, Route: IV, Dosing Weight 95.455 kg, Total Volume: 1,000, When PO intake adequate, okay to saline lock, Start date: 09/11/16 19:39:00 CDT, Duration: 30 day, Stop date: 10/11/16 19:38:00 WINDOWS SERVER SUPPORT TECHNICIAN No Longer Active 09/12/2016 [facility] Tylenol 650 mg, Route: PO, Drug form: TAB, Q6H, kg, PRN Pain Score 1-3, Start date: 09/11/16 19:39:00 CDT, Duration: 30 day, Stop date: 10/11/16 19:38:00 WINDOWS SERVER SUPPORT TECHNICIAN Inactive 09/12/2016 [facility] Famotidine 20 mg, 1 tab, Route: PO, Drug form: TAB, BID, kg, PRN Indigestion, Start date: 09/11/16 19:39:00 CDT, Duration: 30 day, Stop date: 10/11/16 19:38:00 CSTNotes: (Same as: Pepcid) No Longer Active 09/12/2016 [facility] Naloxone 0.4 mg, 1 mL, Route: IVP, Drug form: INJ, Q2MIN, Dosing Weight 95.455, kg, PRN Narcotic Reversal, Start date: 09/11/16 17:04:00 CDT, Duration: 8 doses or times, Stop date: Limited # of timesNotes: Same as Narcan Inactive 09/11/2016 [facility] Flumazenil 0.2 mg, 2 mL, Route: IVP, Drug form: INJ, PRN, Dosing Weight 95.455, kg, PRN Benzodiazepine Reversal, Initial dose, Start date: 09/11/16 17:04:00 CDT, Duration: 30 day, Stop date: 10/11/16 16:03:00 C STNotes: (Same as: Romazicon) Inactive 09/11/2016 [facility] Hydromorphone 0.5 mg, 0.25 mL, Route: IVP, Drug form: INJ, Q5Min, Dosing Weight 95.455, kg, PRN Pain Score 7-10, Start date: 09/11/16 17:04:00 CDT, Duration: 8 doses or times, Stop date: Limited # of timesNotes: S ruben as Dilaudid Inactive 09/11/2016 [facility] Ondansetron 4 mg, 2 mL, Route: IVP, Drug form: INJ, ONCE, Dosing Weight 95.455, kg, PRN Nausea & Vomiting, Start date: 09/11/16 17:04:00 CDTNotes: (Same as: Zofran) MEDICATION WASTE Product Size: 4 mg Product Wasted: ___ mg Inactive 09/11/2016 [facility] Ondansetron 4 mg, Route: IV, PRE OP, Dosing Weight 95.455, kg, Start date: 09/11/16 14:00:00 CDT Inactive 09/11/2016 [facility] Ondansetron 0.8 MG/ML Oral Solution [Zofran] 4 mg, 1 tab, Route: IV, Drug form: TABDIS, PRE OP, Dosing Weight 95.455, kg, Start date: 09/11/16 13:00:00 CDTNotes: (Same as: Zofran ODT) Inactive 09/11/2016 [facility] Celebrex 400 mg, 2 cap, Route: PO, Drug form: CAP, PRE OP, Dosing Weight 95.455, kg, Start date: 09/11/16 13:00:00 CDTNotes: NSAID. Please check indication. Not for seizure. (Same As: CeleBREX) Inactive 09/11/2016 [facility] Dexamethasone 10 mg, 1 mL, Route: IV, Drug form: INJ, PRE OP, Dosing Weight 95.455, kg, Start date: 09/11/16 13:00:00 CDTNotes: MEDICATION WASTE Product Size: 10 mg Product Wasted: ___ mg Inactive 09/11/2016 [facility] Lactated Ringers 1,000 mL 1,000 mL, Rate: 25 ml/hr, Infuse over: 40 hr, Route: IV, Dosing Weight 95.455 kg, Total Volume: 1,000, Start date: 09/11/16 12:59:00 CDT, Duration: 30 day, Stop date: 10/11/16 12:58:00 WINDOWS SERVER SUPPORT TECHNICIAN No Longer Active 09/11/2016 [facility] Dutasteride 0.5 MG Oral Capsule [Avodart] 0.5 mg=1 cap, PO, Daily, 0 Refill(s) Active 09/11/2016 [facility] Aspirin 81 MG Enteric Coated Tablet 81 mg=1 tab, PO, Daily, # 90 tab, 3 Refill(s) No Longer Active 09/11/2016 [facility] Escitalopram 20 MG Oral Tablet [Lexapro] 20 mg=1 tab, PO, Daily, 0 Refill(s) Active 09/11/2016 [facility] 24 HR Bupropion Hydrochloride 300 MG Extended Release Tablet [Wellbutrin] 300 mg=1 tab, PO, Q24H, 0 Refill(s) Active 09/11/2016 [facility] Tamsulosin hydrochloride 0.4 MG Oral Capsule [Flomax] 0.4 mg=1 cap, PO, Daily, 0 Refill(s) Active 09/11/2016 [facility] Vitamin B-100 1 tab, PO, Daily, 0 Refill(s) Active 09/11/2016 [facility] atorvastatin 20 MG Oral Tablet [Lipitor] 20 mg=1 tab, PO, Daily, 0 Refill(s) Active 09/11/2016 [facility] clopidogrel 75 MG Oral Tablet [Plavix] 1/2 tab, PO, Daily, 0 Refill(s) Active 09/11/2016 [facility] nebivolol 2.5 MG Oral Tablet [Bystolic] 2.5 mg=1 tab, PO, Daily, 0 Refill(s) Active 09/11/2016 [facility] Bystolic PO, Daily, 0 Refill(s) No Longer Active 09/11/2016 [facility] Ancef 2 gm, 100 mL, Route: IV, Drug form: INJ, PRE OP, kg, Start date: 09/11/16 11:00:00 CDTNotes: Same as Ancef Inactive 09/11/2016 [facility] Allergies, Adverse Reactions, Alerts Substance Category Reaction Severity Reaction type Status Date Reported Comments Source Immunizations Immunization Date Given Site Status Last Updated Comments Source Results Order Name Results Value Reference Range Date Interpretation Comments Source TOXICOLOGY Vanco Tr TND 01/03/17 01/01/2017 [facility] TOXICOLOGY Vanco Tr 13.1 ug/ml 01/01/2017 [facility] CHEM PANEL eGFR 81 mL/min/1.73m2 01/01/2017 Result Comment: The eGFR is calculated using the [...] from the National Kidney Disease Education Program (NKDEP) which additionally recommends that when the eGFR is used in patients with extremes of body mass index for purposes of drug dosing, the eGFR should be multiplied by the estimated BMI. [facility] CHEM PANEL CO2 28 meq/L 24 - 32 01/01/2017 [facility] CHEM PANEL Calcium Lvl 7.9 mg/dL 8.5 - 10.5 01/01/2017 [facility] CHEM PANEL Chloride Lvl 107 meq/L 95 - 109 01/01/2017 [facility] CHEM PANEL Potassium Lvl 4.3 meq/L 3.5 - 5.1 01/01/2017 [facility] CHEM PANEL Sodium Lvl 142 meq/L 135 - 145 01/01/2017 [facility] CHEM PANEL Creatinine Lvl 0.93 mg/dL 0.50 - 1.40 01/01/2017 [facility] CHEM PANEL BUN 17 mg/dL 7 - 22 01/01/2017 [facility] CHEM PANEL Glucose Lvl 98 mg/dL 70 - 99 01/01/2017 [facility] CHEM PANEL AGAP 11.3 meq/L 10.0 - 20.0 01/01/2017 [facility] HEMATOLOGY Sed Rate 15 mm/h 0 - 15 01/01/2017 [facility] HEMATOLOGY WBC 6.1 K/CMM 3.7 - 10.4 01/01/2017 [facility] HEMATOLOGY Hct 26.6 % 42.0 - 54.0 01/01/2017 [facility] HEMATOLOGY RBC 2.82 M/CMM 4.70 - 6.10 01/01/2017 [facility] HEMATOLOGY Hgb 8.8 g/dL 14.0 - 18.0 01/01/2017 [facility] HEMATOLOGY MCV 94.2 fL 80.0 - 94.0 01/01/2017 [facility] HEMATOLOGY RDW 14.3 % 11.5 - 14.5 01/01/2017 [facility] HEMATOLOGY Platelet 111 K/CMM 133 - 450 01/01/2017 [facility] HEMATOLOGY MCH 31.1 pg 27.0 - 31.0 01/01/2017 [facility] HEMATOLOGY MCHC 33.1 g/dL 32.0 - 36.0 01/01/2017 [facility] HEMATOLOGY MPV 10.3 fL 7.4 - 10.4 01/01/2017 [facility] HEMATOLOGY Monocytes 11.1 % 2.0 - 12.0 01/01/2017 [facility] HEMATOLOGY Lymphocytes 29.1 % 20.0 - 40.0 01/01/2017 [facility] HEMATOLOGY Eosinophils # 0.4 K/CMM 0.0 - 0.5 01/01/2017 [facility] HEMATOLOGY Eosinophils 6.5 % 0.0 - 4.0 01/01/2017 [facility] HEMATOLOGY Segs-Bands # 3.2 K/CMM 1.5 - 8.1 01/01/2017 [facility] HEMATOLOGY Basophils 0.5 % 0.0 - 1.0 01/01/2017 [facility] HEMATOLOGY Lymphocytes # 1.8 K/CMM 1.0 - 5.5 01/01/2017 [facility] HEMATOLOGY Monocytes # 0.7 K/CMM 0.0 - 0.8 01/01/2017 [facility] HEMATOLOGY Segs 52.8 % 45.0 - 75.0 01/01/2017 [facility] IMMUNOLOGY C-REACTIVE PROTEIN 32.7 mg/L <=2.9 mg/L 01/01/2017 [facility] TOXICOLOGY Vanco Lvl 17.5 ug/ml 01/01/2017 [facility] TOXICOLOGY Vanco Tr TND sunday12/31/2016 [facility] TOXICOLOGY Vanco Tr 10.7 ug/ml 12/31/2016 [facility] HEMATOLOGY MPV 10.6 fL 7.4 - 10.4 12/31/2016 [facility] HEMATOLOGY Platelet 109 K/CMM 133 - 450 12/31/2016 [facility] HEMATOLOGY RDW 13.9 % 11.5 - 14.5 12/31/2016 [facility] HEMATOLOGY Hgb 8.7 g/dL 14.0 - 18.0 12/31/2016 [facility] HEMATOLOGY WBC 7.9 K/CMM 3.7 - 10.4 12/31/2016 [facility] HEMATOLOGY RBC 2.78 M/CMM 4.70 - 6.10 12/31/2016 [facility] HEMATOLOGY MCV 94.1 fL 80.0 - 94.0 12/31/2016 [facility] HEMATOLOGY Hct 26.2 % 42.0 - 54.0 12/31/2016 [facility] HEMATOLOGY MCHC 33.4 g/dL 32.0 - 36.0 12/31/2016 [facility] HEMATOLOGY MCH 31.4 pg 27.0 - 31.0 12/31/2016 [facility] HEMATOLOGY Eosinophils 3.4 % 0.0 - 4.0 12/31/2016 [facility] HEMATOLOGY Monocytes 10.3 % 2.0 - 12.0 12/31/2016 [facility] HEMATOLOGY Lymphocytes 27.5 % 20.0 - 40.0 12/31/2016 [facility] HEMATOLOGY Segs 58.6 % 45.0 - 75.0 12/31/2016 [facility] HEMATOLOGY Lymphocytes # 2.2 K/CMM 1.0 - 5.5 12/31/2016 [facility] HEMATOLOGY Eosinophils # 0.3 K/CMM 0.0 - 0.5 12/31/2016 [facility] HEMATOLOGY Monocytes # 0.8 K/CMM 0.0 - 0.8 12/31/2016 [facility] HEMATOLOGY Segs-Bands # 4.6 K/CMM 1.5 - 8.1 12/31/2016 [facility] HEMATOLOGY Basophils 0.2 % 0.0 - 1.0 12/31/2016 [facility] ELECTROLYTES AGAP 12.1 meq/L 10.0 - 20.0 12/30/2016 [facility] ELECTROLYTES eGFR 83 mL/min/1.73m2 12/30/2016 Result Comment: The eGFR is calculated using the [...] from the National Kidney Disease Education Program (NKDEP) which additionally recommends that when the eGFR is used in patients with extremes of body mass index for purposes of drug dosing, the eGFR should be multiplied by the estimated BMI. [facility] ELECTROLYTES Potassium Lvl 4.1 meq/L 3.5 - 5.1 12/30/2016 [facility] ELECTROLYTES Sodium Lvl 138 meq/L 135 - 145 12/30/2016 [facility] ELECTROLYTES BUN 16 mg/dL 7 - 22 12/30/2016 [facility] ELECTROLYTES Glucose Lvl 146 mg/dL 70 - 99 12/30/2016 [facility] ELECTROLYTES Creatinine Lvl 0.91 mg/dL 0.50 - 1.40 12/30/2016 [facility] ELECTROLYTES Chloride Lvl 105 meq/L 95 - 109 12/30/2016 [facility] ELECTROLYTES Calcium Lvl 7.4 mg/dL 8.5 - 10.5 12/30/2016 [facility] ELECTROLYTES CO2 25 meq/L 24 - 32 12/30/2016 [facility] HEMATOLOGY Segs 76.9 % 45.0 - 75.0 12/30/2016 [facility] HEMATOLOGY Lymphocytes 13.3 % 20.0 - 40.0 12/30/2016 [facility] HEMATOLOGY Segs-Bands # 7.8 K/CMM 1.5 - 8.1 12/30/2016 [facility] HEMATOLOGY Lymphocytes # 1.3 K/CMM 1.0 - 5.5 12/30/2016 [facility] HEMATOLOGY Monocytes 9.7 % 2.0 - 12.0 12/30/2016 [facility] HEMATOLOGY Monocytes # 1.0 K/CMM 0.0 - 0.8 12/30/2016 [facility] HEMATOLOGY Basophils 0.1 % 0.0 - 1.0 12/30/2016 [facility] HEMATOLOGY MCHC 32.9 g/dL 32.0 - 36.0 12/30/2016 [facility] HEMATOLOGY MCH 31.2 pg 27.0 - 31.0 12/30/2016 [facility] HEMATOLOGY RDW 13.8 % 11.5 - 14.5 12/30/2016 [facility] HEMATOLOGY Platelet 119 K/CMM 133 - 450 12/30/2016 [facility] HEMATOLOGY MPV 10.1 fL 7.4 - 10.4 12/30/2016 [facility] HEMATOLOGY WBC 10.1 K/CMM 3.7 - 10.4 12/30/2016 [facility] HEMATOLOGY RBC 3.35 M/CMM 4.70 - 6.10 12/30/2016 [facility] HEMATOLOGY Hgb 10.4 g/dL 14.0 - 18.0 12/30/2016 [facility] HEMATOLOGY MCV 94.9 fL 80.0 - 94.0 12/30/2016 [facility] HEMATOLOGY Hct 31.8 % 42.0 - 54.0 12/30/2016 [facility] Chest 1 v for Placement DX Chest 1 v for Placement DX EXAM: XR CHEST 1 VIEW DATE: 12/29/2016 2:42 PM WINDOWS SERVER SUPPORT TECHNICIAN INDICATION: PICC Line Placement COMPARISON: None TECHNIQUE: AP chest FINDINGS: Right-sided PICC line terminates at the cavoatrial junction. No focal airspace consolidation. The costophrenic sulci are sharp. Biapical scarring is seen. No pneumothorax identified. Pulmonary vascularity is normal. Heart is borderline in size. Aorta is tortuous and ectatic with atherosclerosis of the knob. No acute bony abnormality is identified. Scattered endplate osteophytes. 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 Partially visible cervical fusion hardware. IMPRESSION: Right PICC line terminating over the cavoatrial junction without complication. 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 No complication is identified. Expected soft tissue swelling and subcutaneous emphysema about the left hip with a drain in place. Unchanged appearance of the total right hip arthroplasty. 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 12/29/2016 - - Read by: Myles Bashir MD Dictated Date/time: 12/29/16 13:46 Electronically Signed by: Myles Bashir MD 12/29/16 13:50 FINAL REPORT [facility] CHEM PANEL Phosphorus 3.4 mg/dL 2.5 - 4.5 12/28/2016 [facility] HEMATOLOGY INR 1.08 0.85 - 1.17 12/28/2016 [facility] HEMATOLOGY PROTIME 14.2 s 12.0 - 14.7 12/28/2016 [facility] HEMATOLOGY aPTT 29.9 s 22.9 - 35.8 12/28/2016 [facility] CHEM PANEL eGFR 88 mL/min/1.73m2 12/28/2016 Result Comment: The eGFR is calculated using the [...] from the National Kidney Disease Education Program (NKDEP) which additionally recommends that when the eGFR is used in patients with extremes of body mass index for purposes of drug dosing, the eGFR should be multiplied by the estimated BMI. [facility] CHEM PANEL Glucose Lvl 98 mg/dL 70 - 99 12/28/2016 [facility] CHEM PANEL Calcium Lvl 8.0 mg/dL 8.5 - 10.5 12/28/2016 [facility] CHEM PANEL CO2 25 meq/L 24 - 32 12/28/2016 [facility] CHEM PANEL BUN 20 mg/dL 7 - 22 12/28/2016 [facility] CHEM PANEL Sodium Lvl 141 meq/L 135 - 145 12/28/2016 [facility] CHEM PANEL Creatinine Lvl 0.81 mg/dL 0.50 - 1.40 12/28/2016 [facility] CHEM PANEL Chloride Lvl 107 meq/L 95 - 109 12/28/2016 [facility] CHEM PANEL Potassium Lvl 4.2 meq/L 3.5 - 5.1 12/28/2016 [facility] CHEM PANEL Alk Phos 60 unit/L 39 - 136 12/28/2016 [facility] CHEM PANEL Bili Total 0.3 mg/dL 0.2 - 1.3 12/28/2016 [facility] CHEM PANEL ASPARTATE TRANSAMINASE 25 unit/L 0 - 37 12/28/2016 [facility] CHEM PANEL ALANINE AMINOTRANSFERASE 31 unit/L 0 - 65 12/28/2016 [facility] CHEM PANEL Albumin Lvl 3.0 g/dL 3.5 - 5.0 12/28/2016 [facility] CHEM PANEL Total Protein 5.9 g/dL 6.4 - 8.4 12/28/2016 [facility] CHEM PANEL B/C Ratio 25 6 - 25 12/28/2016 [facility] CHEM PANEL AGAP 13.2 meq/L 10.0 - 20.0 12/28/2016 [facility] CHEM PANEL A/G Ratio 1.0 0.7 - 1.6 12/28/2016 [facility] CHEM PANEL Globulin 2.9 g/dL 2.7 - 4.2 12/28/2016 [facility] HEMATOLOGY aPTT 29.5 s 22.9 - 35.8 12/28/2016 [facility] HEMATOLOGY RDW 14.1 % 11.5 - 14.5 12/28/2016 [facility] HEMATOLOGY Platelet 140 K/CMM 133 - 450 12/28/2016 [facility] HEMATOLOGY MPV 9.5 fL 7.4 - 10.4 12/28/2016 [facility] HEMATOLOGY MCV 94.9 fL 80.0 - 94.0 12/28/2016 [facility] HEMATOLOGY MCHC 33.4 g/dL 32.0 - 36.0 12/28/2016 [facility] HEMATOLOGY MCH 31.7 pg 27.0 - 31.0 12/28/2016 [facility] HEMATOLOGY Hgb 13.7 g/dL 14.0 - 18.0 12/28/2016 [facility] HEMATOLOGY Hct 41.0 % 42.0 - 54.0 12/28/2016 [facility] HEMATOLOGY WBC 8.1 K/CMM 3.7 - 10.4 12/28/2016 [facility] HEMATOLOGY RBC 4.32 M/CMM 4.70 - 6.10 12/28/2016 [facility] HEMATOLOGY INR 1.02 0.85 - 1.17 12/28/2016 [facility] HEMATOLOGY PROTIME 13.6 s 12.0 - 14.7 12/28/2016 [facility] HEMATOLOGY Monocytes # 0.8 K/CMM 0.0 - 0.8 12/28/2016 [facility] HEMATOLOGY Lymphocytes # 1.5 K/CMM 1.0 - 5.5 12/28/2016 [facility] HEMATOLOGY Eosinophils # 0.1 K/CMM 0.0 - 0.5 12/28/2016 [facility] HEMATOLOGY Segs-Bands # 5.7 K/CMM 1.5 - 8.1 12/28/2016 [facility] HEMATOLOGY Lymphocytes 18.2 % 20.0 - 40.0 12/28/2016 [facility] HEMATOLOGY Monocytes 10.0 % 2.0 - 12.0 12/28/2016 [facility] HEMATOLOGY Basophils 0.3 % 0.0 - 1.0 12/28/2016 [facility] HEMATOLOGY Eosinophils 1.0 % 0.0 - 4.0 12/28/2016 [facility] HEMATOLOGY Segs 70.5 % 45.0 - 75.0 12/28/2016 [facility] IMMUNOLOGY Prealbumin 21.8 mg/dL 18.0 - 45.0 12/28/2016 [facility] BLOOD BANK RESULTS Antibody Scrn Negative (12/27/16 6:30 PM) 12/28/2016 [facility] BLOOD BANK RESULTS ABO/Rh A POS 12/28/2016 [facility] BLOOD BANK RESULTS RBC product Product available (12/27/16 6:30 PM) 12/28/2016 [facility] CHEM PANEL Magnesium Lvl 1.8 mg/dL 1.8 - 2.4 12/28/2016 [facility] Hip 2/3 views uni DX Hip 2/3 views uni DX EXAM: XR LEFT HIP 2 VIEW DATE: 12/27/2016 6:04 PM WINDOWS SERVER SUPPORT TECHNICIAN INDICATION: Pain Post Trauma COMPARISON: Radiograph performed earlier same day TECHNIQUE: 2 views of the hip including the pelvis FINDINGS: Status post reduction of the left hip prosthesis. Alignment appears adequate. No fractures identified. Right hip prosthesis is unremarkable. No soft tissue abnormality is identified. IMPRESSION: Status post reduction of the left hip prosthesis in good alignment. 12/27/2016 - - Read by: Colin Gracia MD Dictated Date/time: 12/28/16 09:14 Electronically Signed by: Colin Gracia MD 12/28/16 09:15 FINAL REPORT [facility] Hip 1 view DX Hip 1 view DX EXAM: XR LEFT HIP 1 VIEW DATE: 12/27/2016 4:54 PM WINDOWS SERVER SUPPORT TECHNICIAN INDICATION: Pain Post Trauma COMPARISON: Radiograph Performed same day TECHNIQUE: A single crosstable view of the hip DISCUSSION: Crosstable image shows 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 No fracture identified. 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 12/27/2016 - - Read by: Colin Gracia MD Dictated Date/time: 12/28/16 09:13 Electronically Signed by: Colin Gracia MD 12/28/16 09:14 FINAL REPORT [facility] Pelvis AP DX Pelvis AP DX EXAM: XR PELVIS 1 VIEW DATE: 12/27/2016 4:51 PM WINDOWS SERVER SUPPORT TECHNICIAN INDICATION: Pain Post Trauma COMPARISON: Radiograph dated 09/11/2016 TECHNIQUE: A single AP supine radiograph of the pelvis FINDINGS: There is 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 Right hip prosthesis in position. No fracture identified. The soft tissues are unremarkable. 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 12/27/2016 - - Read by: Colin Gracia MD Dictated Date/time: 12/28/16 09:11 Electronically Signed by: Colin Gracia MD 12/28/16 09:13 FINAL REPORT [facility] ELECTROLYTES Chloride Lvl 105 meq/L 95 - 109 09/12/2016 [facility] ELECTROLYTES CO2 25 meq/L 24 - 32 09/12/2016 [facility] ELECTROLYTES Creatinine Lvl 0.73 mg/dL 0.50 - 1.40 09/12/2016 [facility] ELECTROLYTES Potassium Lvl 4.1 meq/L 3.5 - 5.1 09/12/2016 [facility] ELECTROLYTES Sodium Lvl 139 meq/L 135 - 145 09/12/2016 [facility] ELECTROLYTES Calcium Lvl 8.1 mg/dL 8.5 - 10.5 09/12/2016 [facility] ELECTROLYTES eGFR 92 mL/min/1.73m2 09/12/2016 Result Comment: The eGFR is calculated using the [...] from the National Kid[employer] Education Program (NKDEP) which additionally recommends that when the eGFR is used in patients with extremes of body mass index for purposes of drug dosing, the eGFR should be multiplied by the estimated BMI. [facility] ELECTROLYTES Glucose Lvl 124 mg/dL 70 - 99 09/12/2016 [facility] ELECTROLYTES BUN 13 mg/dL 7 - 22 09/12/2016 [facility] ELECTROLYTES AGAP 13.1 meq/L 10.0 - 20.0 09/12/2016 [facility] HEMATOLOGY Hgb 13.4 g/dL 14.0 - 18.0 09/12/2016 [facility] HEMATOLOGY Hct 39.8 % 42.0 - 54.0 09/12/2016 [facility] Pelvis AP DX Pelvis AP DX EXAM: XR PELVIS 1 VIEW DATE: 09/11/2016 at 2049 hours INDICATION: Joint deformities ADDITIONAL INFORMATION: Per the technologist: Postoperative left hip revision COMPARISON: None available TECHNIQUE: AP pelvis, 2 images FINDINGS: Left total hip arthroplasty projects in satisfactory alignment on these frontal images. The acetabular cup angle is approximately 43 degrees. No complication is identified. A lateral surgical drain is present. Expected postoperative subcutaneous emphysema is present. A right total hip arthroplasty is partially visualized. IMPRESSION: Satisfactory appearance of a revision left total hip arthroplasty 09/11/2016 - - Read by: Baylee Obrien MD Dictated Date/time: 09/12/16 08:34 Electronically Signed by: Baylee Obrien MD 09/12/16 08:36 FINAL REPORT [facility] BLOOD BANK RESULTS ABO/Rh A POS 09/11/2016 [facility] BLOOD BANK RESULTS Antibody Scrn Negative (09/11/16 11:20 AM) 09/11/2016 [facility] Vital Signs Vital Sign Value Date Comments Source Systolic (mm Hg) 135 01/02/2017 [facility] Diastolic (mm Hg) 84 01/02/2017 [facility] Respitory Rate 18 01/02/2017 [facility] Temperature Oral (F) 98.5 F 01/02/2017 [facility] Heart Rate 78 01/02/2017 [facility] Systolic (mm Hg) 128 01/01/2017 [facility] Diastolic (mm Hg) 73 01/01/2017 [facility] Heart Rate 75 01/01/2017 [facility] Temperature Oral (F) 97.2 F 01/01/2017 [facility] Respitory Rate 18 01/01/2017 [facility] Systolic (mm Hg) 132 01/01/2017 [facility] Diastolic (mm Hg) 77 01/01/2017 [facility] Temperature Oral (F) 98.7 F 01/01/2017 [facility] Heart Rate 83 01/01/2017 [facility] Respitory Rate 18 01/01/2017 [facility] Respitory Rate 15 12/28/2016 [facility] Systolic (mm Hg) 146 12/28/2016 [facility] Diastolic (mm Hg) 88 12/28/2016 [facility] Respitory Rate 18 12/28/2016 [facility] Systolic (mm Hg) 153 12/28/2016 [facility] Diastolic (mm Hg) 85 12/28/2016 [facility] Systolic (mm Hg) 145 12/28/2016 [facility] Diastolic (mm Hg) 90 12/28/2016 [facility] Respitory Rate 15 12/28/2016 [facility] Weight 97.727 12/28/2016 [facility] BMI Calculated 28.43 12/28/2016 [facility] Height 185.42 cm 12/28/2016 [facility] Weight 97.727 12/27/2016 [facility] Height 185.42 cm 12/27/2016 [facility] BMI Calculated 28.43 12/27/2016 [facility] BMI Calculated 28.43 12/27/2016 [facility] Height 185.42 cm 12/27/2016 [facility] Weight 97.727 12/27/2016 [facility] Systolic (mm Hg) 118 09/13/2016 [facility] Diastolic (mm Hg) 72 09/13/2016 [facility] Heart Rate 60 09/13/2016 [facility] Respitory Rate 18 09/13/2016 [facility] Temperature Oral (F) 98.6 F 09/13/2016 [facility] Systolic (mm Hg) 101 09/12/2016 [facility] Diastolic (mm Hg) 61 09/12/2016 [facility] Respitory Rate 17 09/12/2016 [facility] Temperature Oral (F) 98.0 F 09/12/2016 [facility] Heart Rate 66 09/12/2016 [facility] Temperature Oral (F) 98.0 F 09/12/2016 [facility] Systolic (mm Hg) 118 09/12/2016 [facility] Diastolic (mm Hg) 70 09/12/2016 [facility] Respitory Rate 18 09/12/2016 [facility] Heart Rate 60 09/12/2016 [facility] Weight 95.455 09/11/2016 [facility] BMI Calculated 27.76 09/11/2016 [facility] Height 185.42 cm 09/11/2016 [facility] Height 185.42 cm 09/11/2016 [facility] BMI Calculated 27.76 09/11/2016 [facility] Weight 95.455 09/11/2016 [facility] Weight 95.455 09/11/2016 [facility] BMI Calculated 27.76 09/11/2016 [facility] Height 185.42 cm 09/11/2016 [facility] Encounters Location Location Details Encounter Type Encounter Number Reason For Visit Attending Provider ADM Date DC Date Status Source [facility] Inpatient [id number] Chester Carlin 09/11/2016 09/13/2016 [facility] Outpatient [id number] Chester Carlin 12/27/2016 12/28/2016 [id number] [facility]2017 [facility] OP Therapy Patients [id number] Giovanni Diane 04/22/2018 05/22/2018 [facility] Outpatient [id number] XIMENA ELIDA 08/26/2018 Active [facility] Outpatient [id number] [facility] 10/07/2018 Active [facility] Procedures Procedure Code Date Perfomer Comments Source Biceps tunnel cineplasty 941613578 [id number] of cervical spine with internal fixation by anterior approach [id number] [facility] Hip [facility] operations<sup>1</sup> 16412625 10 years ago [facility] Hip [facility] 225699958 [facility] Laminectomy<sup>2</sup> 886009795 X 3 [facility] Shoulder joint operations [id number] [facility] Biceps tunnel cineplasty [id number] [facility] Ear operations 88677315 [facility] Fusion of joint of cervical spine with internal fixation by anterior approach 786111343 [facility] Hip joint operations<sup>1</sup> 82557501 10 years ago [facility] Hip replacement 282578243 [facility] Laminectomy<sup>2</sup> 625174710 X 3 [facility] Shoulder joint operations 794093478 [facility]
--- OUTSIDE RECORDS SUMMARY | 2018-11-06 10:35 | XMS REPORT | Summary of Care ---
Author Author [facility] Organization [facility] Address Unknown Phone Unavailable Encounter TICO Dubois(SCAR) [id number] Date(s): 09/11/16 - 09/12/16 [facility] [address] [place] [phone] Discharge Disposition: Home or Self Care Attending Physician: Chester Carlin MD Admitting Physician: Chester Carlin MD Referring Physician: Winnie Ronquillo MD Vital Signs 1 2 3 Most recent to oldest [Reference Range]: 185.42 cm (09/11/16 11:38 AM) 185.42 cm (09/11/16 11:02 AM) 185.42 cm (09/11/16 10:59 AM) Height 98.6 DegF (09/12/16 7:30 PM) 98.0 DegF (09/12/16 11:20 AM) 98.0 DegF (09/12/16 7:35 AM) Temperature Oral [96.4-99.1 DegF] 118/72 mmHg (09/12/16 7:30 PM) 101/61 mmHg (09/12/16 11:20 AM) 118/70 mmHg (09/12/16 7:35 AM) Blood Pressure [90-140/60-90 mmHg] 18 BRMIN (09/12/16 7:30 PM) 17 BRMIN (09/12/16 11:20 AM) 18 BRMIN (09/12/16 7:35 AM) Respiratory Rate [14-20 BRMIN] 60 bpm (09/12/16 7:30 PM) 66 bpm (09/12/16 11:20 AM) 60 bpm (09/12/16 7:35 AM) Peripheral Pulse Rate [60-100 bpm] 95.455 kg (09/11/16 11:38 AM) 95.455 kg (09/11/16 11:02 AM) 95.455 kg (09/11/16 10:59 AM) Weight 27.76 m2 (09/11/16 11:38 AM) 27.76 m2 (09/11/16 11:02 AM) 27.76 m2 (09/11/16 10:59 AM) Body Mass Index Problem List Condition Effective Dates Status Health Status Informant Stroke(Confirmed) Resolved Hyperlipidemia(Confi Resolved rmed) Hypertension(Confirm Resolved ed) BPH (benign Active prostatic hyperplasia)(Confirm ed) Allergies, Adverse Reactions, Alerts Substance Reaction Severity Status NKDA Active Medications acetaminophen-hydrocodone 325 mg-10 mg oral tablet 1 tab, Route: PO, Drug Form: TAB, kg, Q4H, PRN Pain Score 1-3, Start date: 09/11 19:39:00 CDT, Duration: 30 day, Stop date: 10/11/16 19:38:00 [employer] Notes: Do not exceed 4gm/day of acetaminophen. (Same as: [place] 325/10) Start Date: 09/11/16 Stop Date: 09/12/16 Status: Discontinued acetaminophen-hydrocodone 325 mg-10 mg oral tablet 2 tab, Route: PO, Drug Form: TAB, kg, Q4H, PRN Pain Score 7-10, Start date: 08/20 03/04 19:39:00 CDT, Duration: 30 day, Stop date: 10/11/16 19:38:00 [employer] Notes: Do not exceed 4gm/day of acetaminophen. (Same as: [place] 325/10) Start Date: 09/11/16 Stop Date: 09/12/16 Status: Discontinued Ancef 2 gm, 100 mL, Route: IV, Drug form: INJ, PRE OP, kg, Start date: 09/11/16 22:00: 00 CDT Notes: Same as Ancef Start Date: 09/11/16 Stop Date: 09/11/16 Status: Discontinued Ancef 2 gm, 100 mL, Route: IV, Drug form: INJ, PRE OP, kg, Start date: 09/11/16 11:00: 00 CDT Notes: Same as Ancef Start Date: 09/11/16 Stop Date: 09/11/16 Status: Completed ANES flumazenil 0.2 mg, 2 mL, Route: IVP, Drug form: INJ, PRN, Dosing Weight 95.455, kg, PRN Shane zodiazepine Reversal, Initial dose, Start date: 09/11/16 21:25:00 CDT, Duration: 1 day, Stop date: 09/12/16 21:24:00 CDT Notes: (Same as: Romazicon) Start Date: 09/11/16 Stop Date: 09/11/16 Status: Deleted ANES flumazenil 0.2 mg, 2 mL, Route: IVP, Drug form: INJ, PRN, Dosing Weight 95.455, kg, PRN Shane zodiazepine Reversal, Initial dose, Start date: 09/11/16 17:04:00 CDT, Duration: 30 day, Stop date: 10/11/16 16:03:00 [employer] Notes: (Same as: Romazicon) Start Date: 09/11/16 Stop Date: 09/11/16 Status: Discontinued ANES HYDROmorphone 0.5 mg, 0.25 mL, Route: IVP, Drug form: INJ, Q5Min, Dosing Weight 95.455, kg, [place] N Pain Score 7-10, Start date: 09/11/16 21:25:00 CDT, Duration: 8 doses or times , Stop date: Limited # of times Notes: Same as Dilaudid Start Date: 09/11/16 Stop Date: 09/11/16 Status: Deleted ANES HYDROmorphone 0.5 mg, 0.25 mL, Route: IVP, Drug form: INJ, Q5Min, Dosing Weight 95.455, kg, [place] N Pain Score 7-10, Start date: 09/11/16 17:04:00 CDT, Duration: 8 doses or times , Stop date: Limited # of times Notes: Same as Dilaudid Start Date: 09/11/16 Stop Date: 09/11/16 Status: Discontinued ANES naloxone 0.4 mg, 1 mL, Route: IVP, Drug form: INJ, Q2MIN, Dosing Weight 95.455, kg, PRN N arcotic Reversal, Start date: 09/11/16 21:25:00 CDT, Duration: 8 doses or times, Stop date: Limited # of times Notes: Same as Narcan Start Date: 09/11/16 Stop Date: 09/12/16 Status: Discontinued ANES naloxone 0.4 mg, 1 mL, Route: IVP, Drug form: INJ, Q2MIN, Dosing Weight 95.455, kg, PRN N arcotic Reversal, Start date: 09/11/16 17:04:00 CDT, Duration: 8 doses or times, Stop date: Limited # of times Notes: Same as Narcan Start Date: 09/11/16 Stop Date: 09/11/16 Status: Discontinued ANES ondansetron 4 mg, 2 mL, Route: IVP, Drug form: INJ, ONCE, Dosing Weight 95.455, kg, PRN Naus ea & Vomiting, Start date: 09/11/16 21:25:00 CDT Notes: (Same as: Rosas) MEDICATION WASTE Product Size: 4 mgProduct Was lora: ___ mg Start Date: 09/11/16 Stop Date: 09/11/16 Status: Deleted ANES ondansetron 4 mg, 2 mL, Route: IVP, Drug form: INJ, ONCE, Dosing Weight 95.455, kg, PRN Naus ea & Vomiting, Start date: 09/11/16 17:04:00 CDT Notes: (Same as: Rosas) MEDICATION WASTE Product Size: 4 mgProduct Was lora: ___ mg Start Date: 09/11/16 Stop Date: 09/11/16 Status: Discontinued aspirin 81 mg tablet, chewable 81 mg, 1 tab, Route: PO, Drug form: CHEWTAB, BID, kg, Start date: 09/12/16 9:00: 00 CDT, Duration: 30 day, Stop date: 10/11/16 17:00:00 [employer] Notes: Take with food. Start Date: 09/12/16 Stop Date: 09/12/16 Status: Discontinued aspirin 81 mg tablet, chewable 81 mg=1 tab, PO, BID, # 56 tab, 0 Refill(s), Pharmacy: [facility]– [place] Start Date: 09/12/16 Stop Date: 10/10/16 Status: Ordered aspirin 81 mg tablet, enteric coated 81 mg=1 tab, PO, Daily, # 90 tab, 3 Refill(s) Start Date: 09/11/16 Stop Date: 09/12/16 Status: Discontinued aspirin 81 mg tablet, enteric coated 81 mg, Route: PO, Daily, Dosing Weight 95.455, kg, Start date: 09/12/16 9:00:00 CDT, Duration: 30 day, Stop date: 10/11/16 9:00:00 [employer] Start Date: 09/12/16 Stop Date: 09/11/16 Status: Deleted atorvastatin 20 mg, 1 tab, Route: PO, Drug form: TAB, Bedtime, Dosing Weight 95.455, kg, Star t date: 09/12/16 21:00:00 CDT, Duration: 30 day, Stop date: 10/11/16 21:00:00 CS T Notes: (Same As: Lipitor) Start Date: 09/12/16 Stop Date: 09/12/16 Status: Canceled Avodart 0.5 mg oral capsule 0.5 mg=1 cap, PO, Daily, 0 Refill(s) Start Date: 09/11/16 Status: Ordered Bactrim DS 800 mg- 160 mg oral tablet 1 tab, PO, BID, X 7 day, # 14 tab, 0 Refill(s), Pharmacy: [facility] Start Date: 09/12/16 Stop Date: 09/19/16 Status: Ordered bisacodyl 10 mg, 1 supp, Route: [place], Drug form: SUPP, Daily, Dosing Weight 95.455, kg, PRN Constipation, Start date: 09/11/16 19:39:00 CDT, Duration: 30 day, Stop date: 19:38:00 [employer] Notes: (Same As: Dulcolax, Bisco-Lax) Start Date: 09/11/16 Stop Date: 09/12/16 Status: Discontinued Budeprion XL 300 mg, 1 tab, Route: PO, Drug form: ERTAB, Daily, Dosing Weight 95.455, kg, Sta rt date: 09/12/16 9:00:00 CDT, Duration: 30 day, Stop date: 10/11/16 9:00:00 [employer] Notes: (Same as: Wellbutrin XL)"Do Not Crush" Start Date: 09/12/16 Stop Date: 09/12/16 Status: Discontinued Bystolic PO, Daily, 0 Refill(s) Start Date: 09/11/16 Stop Date: 09/12/16 Status: Discontinued Bystolic 2.5 mg oral tablet 2.5 mg=1 tab, PO, Daily, 0 Refill(s) Start Date: 09/11/16 Status: Ordered ceFAZolin (SCIP) 2 gm, 100 mL, Route: IVPB, Drug form: INJ, Q6H, kg, Start date: 09/11/16 22:00:0 0 CDT, Duration: 6 doses or times, Stop date: 09/13/16 4:00:00 CDT Notes: Same as Ancef Start Date: 09/11/16 Stop Date: 09/12/16 Status: Discontinued CeleBREX 400 mg, Route: PO, Drug form: CAP, PRE OP, Dosing Weight 95.455, kg, Start date: 09/11/16 22:00:00 CDT Start Date: 09/11/16 Stop Date: 09/11/16 Status: Deleted CeleBREX 400 mg, 2 cap, Route: PO, Drug form: CAP, PRE OP, Dosing Weight 95.455, kg, Star t date: 09/11/16 13:00:00 CDT Notes: NSAID. Please check indication. Not for seizure. (Same As: CeleBREX) Start Date: 09/11/16 Stop Date: 09/11/16 Status: Completed celecoxib 200 mg, 1 cap, Route: PO, Drug form: CAP, [id number], Dosing Weight 95.455, kg, Sta rt date: 09/11/16 20:00:00 CDT, Duration: 30 day, Stop date: 10/11/16 8:00:00 CS T Notes: NSAID. Please check indication. Not for seizure. (Same As: CeleBREX) Start Date: 09/11/16 Stop Date: 09/12/16 Status: Discontinued dexamethasone 10 mg, 1 mL, Route: IVP, Drug form: INJ, ONCE, kg, Start date: 09/12/16 19:39:00 CDT, Stop date: 09/12/16 19:39:00 CDT Notes: MEDICATION WASTE Product Size: 10 mgProduct Wasted: ___ mg Start Date: 09/12/16 Stop Date: 09/12/16 Status: Discontinued dexamethasone 10 mg, 1 mL, Route: IV, Drug form: INJ, PRE OP, Dosing Weight 95.455, kg, Start date: 09/11/16 22:00:00 CDT Notes: MEDICATION WASTE Product Size: 10 mgProduct Wasted: ___ mg Start Date: 09/11/16 Stop Date: 09/11/16 Status: Discontinued dexamethasone 10 mg, 1 mL, Route: IV, Drug form: INJ, PRE OP, Dosing Weight 95.455, kg, Start date: 09/11/16 13:00:00 CDT Notes: MEDICATION WASTE Product Size: 10 mgProduct Wasted: ___ mg Start Date: 09/11/16 Stop Date: 09/11/16 Status: Completed docusate 100 mg, 1 cap, Route: PO, Drug form: CAP, BID, Dosing Weight 95.455, kg, Start d ate: 09/12/16 9:00:00 CDT, Duration: 30 day, Stop date: 10/11/16 17:00:00 [employer] Notes: (Same as: Colace) (Do Not Crush) Start Date: 09/12/16 Stop Date: 09/12/16 Status: Discontinued dutasteride 0.5 mg, 1 cap, Route: PO, Drug form: CAP, Daily, Dosing Weight 95.455, kg, Start date: 09/12/16 9:00:00 CDT, Duration: 30 day, Stop date: 10/11/16 9:00:00 [employer] Notes: Non-Formulary Drug. (Same As: Avodart) (Do Not Crush) Start Date: 09/12/16 Stop Date: 09/12/16 Status: Discontinued escitalopram 20 mg, 2 tab, Route: PO, Drug form: TAB, Daily, Dosing Weight 95.455, kg, Start date: 09/12/16 9:00:00 CDT, Duration: 30 day, Stop date: 10/11/16 9:00:00 [employer] Notes: (Same as: Lexapro) Start Date: 09/12/16 Stop Date: 09/12/16 Status: Discontinued famotidine 20 mg, 1 tab, Route: PO, Drug form: TAB, BID, kg, PRN Indigestion, Start date: 1 19:39:00 CDT, Duration: 30 day, Stop date: 10/11/16 19:38:00 [employer] Notes: (Same as: Pepcid) Start Date: 09/11/16 Stop Date: 09/12/16 Status: Discontinued Flomax 0.4 mg oral capsule 0.4 mg=1 cap, PO, Daily, 0 Refill(s) Start Date: 09/11/16 Status: Ordered Lactated Ringers 1,000 mL 1,000 mL, Rate: 25 ml/hr, Infuse over: 40 hr, Route: IV, Dosing Weight 95.455 kg , Total Volume: 1,000, Start date: 09/11/16 12:59:00 CDT, Duration: 30 day, Stop date: 10/11/16 12:58:00 [employer] Start Date: 09/11/16 Stop Date: 09/12/16 Status: Discontinued Lexapro 20 mg oral tablet 20 mg=1 tab, PO, Daily, 0 Refill(s) Start Date: 09/11/16 Status: Ordered Lipitor 20 mg oral tablet 20 mg=1 tab, PO, Daily, 0 Refill(s) Start Date: 09/11/16 Status: Ordered Mobic 15 mg oral tablet 15 mg=1 tab, PO, Daily, # 30 tab, 0 Refill(s), Pharmacy: [facility] [place] [facility] Start Date: 09/12/16 Status: Ordered morphine Sulfate 5 mg, 0.5 mL, Route: IVP, Drug form: INJ, Q4H, kg, PRN Pain Score 7-10, Start da te: 09/11/16 19:39:00 CDT, Duration: 30 day, Stop date: 10/11/16 19:38:00 [employer] Notes: (Same as:MORPhine Sulfate) Start Date: 09/11/16 Stop Date: 09/12/16 Status: Discontinued nebivolol 2.5 mg, 0.5 tab, Route: PO, Drug form: TAB, Daily, Dosing Weight 95.455, kg, Sta rt date: 09/12/16 9:00:00 CDT, Duration: 30 day, Stop date: 10/11/16 9:00:00 [employer] Notes: (same as: Bystolic) Start Date: 09/12/16 Stop Date: 09/12/16 Status: Discontinued ondansetron 4 mg, 2 mL, Route: IV, Drug form: INJ, PRE OP, Dosing Weight 95.455, kg, Start d ate: 09/11/16 22:00:00 CDT Notes: (Same as: Zofran) MEDICATION WASTE Product Size: 4 mgProduct Was lora: ___ mg Start Date: 09/11/16 Stop Date: 09/12/16 Status: Discontinued ondansetron 4 mg, 2 mL, Route: IVP, Drug form: INJ, Q6H, kg, PRN Nausea & Vomiting, Start date: 09/11/16 19:39:00 CDT, Duration: 30 day, Stop date: 10/11/16 19:38:00 [employer] Notes: (Same as: Zofran) MEDICATION WASTE Product Size: 4 mgProduct Was lora: ___ mg Start Date: 09/11/16 Stop Date: 09/12/16 Status: Discontinued ondansetron 4 mg, Route: IV, PRE OP, Dosing Weight 95.455, kg, Start date: 09/11/16 14:00:00 CDT Start Date: 09/11/16 Stop Date: 09/11/16 Status: Completed ondansetron 4 mg oral tablet, disintegrating 4 mg, 1 tab, Route: IV, Drug form: TABDIS, PRE OP, Dosing Weight 95.455, kg, Sta rt date: 09/11/16 13:00:00 CDT Notes: (Same as: Zofran ODT) Start Date: 09/11/16 Stop Date: 09/11/16 Status: Discontinued ondansetron 4 mg oral tablet, disintegrating 4 mg, 1 tab, Route: IV, Drug form: TABDIS, PRE OP, Dosing Weight 95.455, kg, Sta rt date: 09/11/16 22:00:00 CDT Notes: (Same as: Zofran ODT) Start Date: 09/11/16 Stop Date: 09/11/16 Status: Discontinued oxyCODONE 5 mg immediate release 5 mg, 1 tab, Route: PO, Drug form: TAB, Q4H, Dosing Weight 95.455, kg, PRN Pain Score 4-6, Start date: 09/11/16 19:39:00 CDT, Duration: 30 day, Stop date: 10/11 19:38:00 [employer] Notes: (Same as: Roxicodone) Start Date: 09/11/16 Stop Date: 09/12/16 Status: Discontinued Plavix 75 mg oral tablet 1/2 tab, PO, Daily, 0 Refill(s) Start Date: 09/11/16 Status: Ordered polyethylene glycol 3350 17 gm, 1 pkt, Route: PO, Drug form: PWDR, Daily, kg, PRN Constipation, Start cami e: 09/11/16 19:39:00 CDT, Duration: 30 day, Stop date: 10/11/16 19:38:00 [employer] Notes: Dissolve in 8 oz of water or juice.(Same as: Miralax) Start Date: 09/11/16 Stop Date: 09/12/16 Status: Discontinued polymyxin B sulfate + sodium chloride 0.9%, adv 250 ml 250 mL 125,000 unit, Route: IRRIG, Drug form: PDR/INJ, ONCE, Start date: 09/12/16 8:54: 00 CDT, Stop date: 09/12/16 8:54:00 CDT Notes: (Same as: Polymyxin B Sulfate) Start Date: 09/12/16 Stop Date: 09/12/16 Status: Completed ropivacaine 100 mL, Route: InFILtration(local), Drug Form: INJ, ONCE, Start date: 09/12/16 8 :52:00 CDT, Stop date: 09/12/16 8:52:00 CDT Notes: NOT FOR IV useRopivacaine 5 mg/mL (49.25 mL) Epinephrine 1 mg/mL (0.5 mL) Clonidine 0.1 mg/mL (0.8 mL) Ketorolac 30 mg/mL (1 mL) Normal Saline 48 .45 mL Start Date: 09/12/16 Stop Date: 09/12/16 Status: Completed sodium chloride 0.9% 1000 ml INJ 1,000 mL 1,000 mL, Rate: 85 ml/hr, Infuse over: 11.8 hr, Route: IV, Dosing Weight 95.455 kg, Total Volume: 1,000, When PO intake adequate, okay to saline lock, Start cami e: 09/11/16 19:39:00 CDT, Duration: 30 day, Stop date: 10/11/16 19:38:00 [employer] Start Date: 09/11/16 Stop Date: 09/12/16 Status: Discontinued tamsulosin 0.4 mg, 1 cap, Route: PO, Drug form: CAP, After Breakfast, Dosing Weight 95.455, kg, Start date: 09/12/16 8:30:00 CDT, Duration: 30 day, Stop date: 10/11/16 8:3 0:00 [employer]ER Notes: (Same As: Flomax) "Do Not Crush" Start Date: 09/12/16 Stop Date: 09/12/16 Status: Discontinued tranexamic acid 1.95 gm, 3 tab, Route: PO, Drug form: TAB, ONCE, kg, Start date: 09/12/16 1:39:0 0 CDT, Stop date: 09/12/16 1:39:00 CDT Notes: (Same as: Lysteda) Non-Formulary Start Date: 09/12/16 Stop Date: 09/12/16 Status: Completed Tylenol 650 mg, Route: PO, Drug form: TAB, Q6H, kg, PRN Pain Score 1-3, Start date: 08/20 03/04 19:39:00 CDT, Duration: 30 day, Stop date: 10/11/16 19:38:00 [employer] Start Date: 09/11/16 Stop Date: 09/11/16 Status: Deleted Ultracet oral tablet 2 tab, Route: PO, Drug Form: TAB, kg, Q4H, PRN Pain Score 7-10, Start date: 08/20 03/04 19:39:00 CDT, Duration: 30 day, Stop date: 10/11/16 19:38:00 [employer] Start Date: 09/11/16 Stop Date: 09/11/16 Status: Deleted vancomycin + sodium chloride 0.9%, adv 250 ml 250 mL 500 mg, Route: IRRIG, Drug form: PDR/INJ, ONCE, Start date: 09/12/16 8:53:00 CDT , Stop date: 09/12/16 8:53:00 CDT Notes: TIME CRITICAL MEDICATION(Same As: Vancocin) Start Date: 09/12/16 Stop Date: 09/12/16 Status: Completed Vitamin B-100 1 tab, Route: PO, Drug Form: TAB, Dosing Weight 95.455, kg, Daily, Start date: 1 9:00:00 CDT, Duration: 30 day, Stop date: 10/11/16 9:00:00 [employer] Notes: (Same as:One Tab Daily, Tab-A-Viki + Beta Carotene) Give with food. Start Date: 09/12/16 Stop Date: 09/12/16 Status: Discontinued Vitamin B-100 1 tab, PO, Daily, 0 Refill(s) Start Date: 09/11/16 Status: Ordered Wellbutrin XL 300 mg/24 hours oral tablet, extended release 300 mg=1 tab, PO, Q24H, 0 Refill(s) Start Date: 09/11/16 Status: Ordered Zofran 4 mg, 2 mL, Route: IV, Drug form: INJ, Q8H, kg, Start date: 09/12/16 8:00:00 CDT , Duration: 3 doses or times, Stop date: 09/13/16 0:00:00 CDT Notes: (Same as: Zofran) MEDICATION WASTE Product Size: 4 mgProduct Was lora: ___ mg Start Date: 09/12/16 Stop Date: 09/12/16 Status: Discontinued Results BLOOD BANK RESULTS Most recent to 1 oldest [Reference Range]: ABO/Rh A POS *Unknown* (09/11/16 11:20 AM) Antibody Scrn Negative (09/11/16 11:20 AM) ELECTROLYTES Most recent to 1 oldest [Reference Range]: Sodium Lvl [135-145 139 mEq/L mEq/L] (09/12/16 4:03 AM) Potassium Lvl 4.1 mEq/L [3.5-5.1 mEq/L] (09/12/16 4:03 AM) Chloride Lvl [95-109 105 mEq/L mEq/L] (09/12/16 4:03 AM) CO2 [24-32 mEq/L] 25 mEq/L (09/12/16 4:03 AM) AGAP [10.0-20.0 13.1 mEq/L mEq/L] (09/12/16 4:03 AM) CHEM PANEL Most recent to 1 oldest [Reference Range]: Creatinine Lvl 0.73 mg/dL [0.50-1.40 mg/dL] (09/12/16 4:03 AM) eGFR 92 mL/min/1.73m2 1 *NA* (09/12/16 4:03 AM) BUN [7-22 mg/dL] 13 mg/dL (09/12/16 4:03 AM) Glucose Lvl [70-99 124 mg/dL mg/dL] *HI* (09/12/16 4:03 AM) Calcium Lvl 8.1 mg/dL [8.5-10.5 mg/dL] *LOW* (09/12/16 4:03 AM) 1Result Comment: The eGFR is calculated using [...] be mul tiplied by the estimated BMI. HEMATOLOGY Most recent to 1 oldest [Reference Range]: Hgb [14.0-18.0 g/dL] 13.4 g/dL *LOW* (09/12/16 4:03 AM) Hct [42.0-54.0 %] 39.8 % *LOW* (09/12/16 4:03 AM) Immunizations No data available for this section [...] Smoking Cessation Counseling No Assessment and Plan Extracted from: Title: Discharge Summary Author: Angeli Herrera Date: 09/12/16 Discharge Summary Admission date:09/11/16 Discharge date: 09/12/16 Preoperative diagnosis: left KARON recurrent dislocation Postoperative diagnosis: left KARON recurreent dislocation Procedure: left KARON revision Consults: Physical Therapy, Internal Medicine Hospital course: Patient was admitted on the above date for treatment of left KARON recurrent dislocation. Patient underwent the operative procedure of a left KARON revision. Patient was monitored by the internal medicine service and remained stable throughout the post operative course. Patient's H&H was stable. Patient was seen by physical therapy twice daily and was ambulating well with a walker prior to discharge. ROM goals achieved. Patient was cleared for discharge on 09/12/16. Hospital course was uneventful. Diet: regular Meds: please see med reconciliation list Activity: WBAT, walker transition to cane Follow up: follow up in [address] Carlin Extracted from: Title: Ortho Progress Note Author: Angeli Herrera Date: 09/12/16 Ortho Progress Note POD# 1 Allergies (1) ActiveReaction NKDANone Documented SUBJECTIVE: Patient complains of mild pain, well controlled OBJECTIVE: Vital Signs (last 24 hrs) Last Charted Temp Oral98.0 DegF (SEP 12 11:20) Heart Rate [id number] bpm (SEP 12 11:20) Resp Rate 17 BRMIN (SEP 12 11:20) ETT581 mmHg (SEP 12 11:20) DBP61 mmHg (SEP 12 11:20) BoX232 % (SEP 12:20) NV intact dressing c/d/i drain removed LABS: Labs (Last four charted values) Hgb L 13.4(SEP 12) Hct L 39.8(SEP 12) Na 139(SEP 12) K 4.1(SEP 12) CO2 25(SEP 12) Cl 105(SEP 12) Cr 0.73(SEP 12) BUN 13(SEP 12) Glucose Random H 124(SEP 12) Ca L 8.1(SEP 12) ASSESSMENT & EXAM: status post left KARON revision PLAN & TREATMENT -pain control -DVT prophylaxis -IV antibiotics x 24 hrs -PT BID -up in chair for all meals Extracted from: Title: Hospitalist Consult Note Author: Marimar De Leon MD Date: 09/11/16 Assessment/Plan Pt is a 75 y/o male with PMHx significant for HLD, HTN, BPH, OA, and CVA s/p stent placed in L ICA with no residual deficits who presents as a transfer from [facility] for left hip dislocation and hardware displacement 1. Left hip dislocation - plans to be taken to the OR with Dr. Carlin, who will be primary - pending further recs from them once pt out of OR 2. Pre-operative clearance - pt with no anginal symptoms and METs appear to be >4 based on information that pt has given me - at this time no further cardiac work up needed, RCRI score 1 - pt is intermediate risk for intermediate procedure, have discussed this with patient and shows understanding of his risk for adverse cardiac event during procedure - EKG obtained in pre-op NSR with no ST/T wave changes 3. HTN - only on Bystolic 2.5 mg daily at home - will monitor BP and titrate as needed 4. HLD - will restart home meds 5. h/o CVA with stent in L ICA - on ASA/plavix at home, likely to resume once pt is out of surgery, will discuss with ORS - on statin as outpt, restart 6. BPH - restart home meds 7. Acute pain management - per ORS initially - hospitalist on board for assistance if needed 8. Depression - restart home meds [facility] - Hospitalist consulting service, please call [phone] with questions. Prophylaxis per primary Disposition per primary
--- OUTSIDE RECORDS SUMMARY | 2018-11-06 10:36 | XMS REPORT | Summary of Care ---
Author Author [facility] Organization [facility] Address Unknown Phone Unavailable Encounter [facility] Encntr_aliraeann(FIN) [id number] Date(s): 04/22/18 - 05/21/18 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 Allergies, Adverse Reactions, Alerts Substance Reaction Severity Status NKDA Active Medications No data available for this section Results No data available for this section Immunizations No data available for this section Procedures Procedure Date Related Diagnosis Body Site Status Biceps tunnel cineplasty Completed Ear operations Completed Fusion of joint of cervical spine with Completed internal fixation by anterior approach Hip joint operations1 Completed Hip replacement Completed Laminectomy2 Completed Shoulder joint operations Completed 110 years ago 2X 3 Social History Social History Type Response Substance Abuse Use: None. Alcohol Current, Type Beer. Frequency: 1-2 times per month. Alcohol use interferes with work or home: No. Drinks more than intended: No. Others hurt by drinking: No. Smoking Status Never smoker; Exposure to Tobacco Smoke None; Cigarette Smoking Last 365 Days No; Reg Smoking Cessation Counseling No; Tobacco use per day: 0; entered on: 12/27/16 Assessment and Plan No data available for this section
--- OUTSIDE RECORDS SUMMARY | 2018-11-06 10:36 | XMS REPORT | Summary of Care ---
Author Author [facility] Organization [facility] Address Unknown Phone Unavailable Encounter TICO Dubois(SCAR) [id number] Date(s): 12/27/16 - 01/01/17 [facility] [address] [place] [address]- [phone] Discharge Disposition: Home or Self Care Attending Physician: Chester Carlin MD Admitting Physician: Chester Carlin MD Vital Signs 1 2 3 Most recent to oldest [Reference Range]: 185.42 cm (12/27/16 6:17 PM) Height 98.5 DegF (01/01/17 7:16 PM) 97.2 DegF (01/01/17 3:20 PM) 98.7 DegF (01/01/17 11:30 AM) Temperature Oral [96.4-99.1 DegF] 135/84 mmHg (01/01/17 7:16 PM) 128/73 mmHg (01/01/17 3:20 PM) 132/77 mmHg (01/01/17 11:30 AM) Blood Pressure [90-140/60-90 mmHg] 18 BRMIN (01/01/17 7:16 PM) 18 BRMIN (01/01/17 3:20 PM) 18 BRMIN (01/01/17 11:30 AM) Respiratory Rate [14-20 BRMIN] 78 bpm (01/01/17 7:16 PM) 75 bpm (01/01/17 3:20 PM) 83 bpm (01/01/17 11:30 AM) Peripheral Pulse Rate [60-100 bpm] 97.727 kg (12/27/16 6:17 PM) Weight 28.43 m2 (12/27/16 6:17 PM) Body Mass Index Problem List Condition [...] Pain Score 4-6, Start date: 12/29/16 12:27:00 [employer], Duration: 30 day, Stop date: 01/28/17 12 :26:00 CDT Notes: Do not exceed 4gm/day of acetaminophen. (Same as: Bronson 325/10) Start Date: 12/29/16 Stop Date: 01/01/17 Status: Discontinued Ancef 2 gm, 100 mL, Route: IV, Drug form: INJ, ONCE, Dosing Weight 97.727, kg, Start d ate: 12/29/16 10:25:00 [employer], Stop date: 12/29/16 10:25:00 [employer]ER Notes: Same as Ancef Start Date: 12/29/16 Stop Date: 12/29/16 Status: Discontinued Ancef 2 gm, Route: IV, ONCE, Dosing Weight 97.727, kg, Start date: 12/29/16 10:26:[address], Stop date: 12/29/16 10:26:00 [employer] Start Date: 12/29/16 Stop Date: 12/29/16 Status: Deleted ANES atropine 0.2 mg, 2 mL, Route: IVP, Drug form: INJ, Q5Min, Dosing Weight 97.727, kg, PRN O ther -See Comment, as needed; for symptomatic pulse rate < 80% of mean 50 BPM, Start date: 12/29/16 12:42:00 [employer], Duration: 30 day, Stop date: 01/28/17 13:41:00 CDT Start Date: 12/29/16 Stop Date: 12/29/16 Status: Discontinued ANES ePHEDrine 5 mg, 0.1 mL, Route: IVP, Drug form: INJ, Q5Min, Dosing Weight 97.727, kg, PRN L ow Blood Pressure, Start date: 12/29/16 12:42:00 [employer], Duration: 30 day, Stop cami e: 01/28/17 13:41:00 CDT Notes: (Same as: ePHEDrine Sulfate) Start Date: 12/29/16 Stop Date: 12/29/16 Status: Discontinued ANES flumazenil 0.2 mg, 2 mL, Route: IVP, Drug form: INJ, PRN, Dosing Weight 97.727, kg, PRN Shane zodiazepine Reversal, Initial dose, Start date: 12/29/16 12:42:00 [employer], Duration: 30 day, Stop date: 01/28/17 13:41:00 CDT Notes: (Same as: Romazicon) Start Date: 12/29/16 Stop Date: 12/29/16 Status: Discontinued ANES hydrALAZINE 10 mg, 0.5 mL, Route: IVP, Drug form: INJ, Q20Min, Dosing Weight 97.727, kg, PRN Elevated BP, Start date: 12/29/16 12:42:00 [employer], Duration: 2 doses or times, Stop date: Limited # of times Notes: (Same as: Apresoline)Push over 5 minutes Start Date: 12/29/16 Stop Date: 12/29/16 Status: Discontinued ANES HYDROmorphone 0.5 mg, 0.25 mL, Route: IVP, Drug form: INJ, Q5Min, Dosing Weight 97.727, kg, NM N Pain Score 7-10, Start date: 12/29/16 12:42:00 [employer], Duration: 4 doses or times , Stop date: Limited # of times Notes: Same as Dilaudid Start Date: 12/29/16 Stop Date: 12/29/16 Status: Discontinued ANES labetalol 10 mg, 2 mL, Route: IVP, Drug form: INJ, Q5Min, Dosing Weight 97.727, kg, PRN El evated BP, Start date: 12/29/16 12:42:00 [employer], Duration: 5 doses or times, Stop d ate: Limited # of times Start Date: 12/29/16 Stop Date: 12/29/16 Status: Discontinued ANES meperidine 12.5 mg, 0.25 mL, Route: IVP, Drug form: INJ, Q30Min, Dosing Weight 97.727, kg, PRN Other -See Comment, For shivering, Start date: 12/29/16 12:42:00 [employer], Durati on: 2 doses or times, Stop date: Limited # of times Notes: (Same as: Demerol) "Use Precaution in Elderly, Seizure disorders, and Re nal impairment" Start Date: 12/29/16 Stop Date: 12/29/16 Status: Discontinued ANES metoprolol 1 mg, 1 mL, Route: IVP, Drug form: INJ, Q5Min, Dosing Weight 97.727, kg, PRN Oth er -See Comment, Start date: 12/29/16 12:42:00 [employer], Duration: 5 doses or times, Stop date: Limited # of times Notes: (Same as: Lopressor)Push over 2 minutes Start Date: 12/29/16 Stop Date: 12/29/16 Status: Discontinued ANES morphine Sulfate 2 mg, 0.2 mL, Route: IVP, Drug form: INJ, Q5Min, Dosing Weight 97.727, kg, PRN P ain Score 4-6, Start date: 12/29/16 12:42:00 [employer], Duration: 5 doses or times, St op date: Limited # of times Notes: (Same as:MORPhine Sulfate) Start Date: 12/29/16 Stop Date: 12/29/16 Status: Discontinued ANES naloxone 0.4 mg, 1 mL, Route: IVP, Drug form: INJ, Q2MIN, Dosing Weight 97.727, kg, PRN N arcotic Reversal, Start date: 12/29/16 12:42:00 [employer], Duration: 8 doses or times, Stop date: Limited # of times Notes: Same as Narcan Start Date: 12/29/16 Stop Date: 12/29/16 Status: Discontinued ANES ondansetron 4 mg, 2 mL, Route: IVP, Drug form: INJ, ONCE, Dosing Weight 97.727, kg, PRN Naus ea & Vomiting, Start date: 12/29/16 12:42:00 [employer] Notes: (Same as: Zofran) MEDICATION WASTE Product Size: 4 mgProduct Was lora: ___ mg Start Date: 12/29/16 Stop Date: 12/29/16 Status: Completed ANES promethazine 6.25 mg, 0.25 mL, Route: IVPB, Drug form: INJ, ONCE, Dosing Weight 97.727, kg, P RN Nausea & Vomiting, Start date: 12/29/16 12:42:00 [employer] Notes: Do not give IV push. (Same as: Phenergan) Start Date: 12/29/16 Stop Date: 12/29/16 Status: Discontinued aspirin 325 mg tablet, enteric coated 325 mg, 1 tab, Route: PO, Drug form: ECTAB, BID, Dosing Weight 97.727, kg, Start date: 12/30/16 9:00:00 [employer], Duration: 30 day, Stop date: 01/28/17 17:00:00 CDT Notes: (Do Not Crush) Do not crush or chew. Start Date: 12/30/16 Stop Date: 01/01/17 Status: Discontinued Avodart 0.5 mg, 1 cap, Route: PO, Drug form: CAP, Daily, Dosing Weight 97.727, kg, Start date: 12/28/16 9:00:00 [employer], Stop date: 01/25/17 21:00:00 [employer] Notes: Non-Formulary Drug. (Same As: Avodart) (Do Not Crush) Start Date: 12/28/16 Stop Date: 01/01/17 Status: Discontinued bisacodyl 10 mg, 1 supp, Route: NM, Drug form: SUPP, Daily, Dosing Weight 97.727, kg, PRN Constipation, Start date: 12/29/16 12:27:00 [employer], Duration: 30 day, Stop date: 12:26:00 CDT Notes: (Same As: Dulcolax, Bisco-Lax) Start Date: 12/29/16 Stop Date: 01/01/17 Status: Discontinued Bystolic 2.5 mg, 0.5 tab, Route: PO, Drug form: TAB, Daily, Dosing Weight 97.727, kg, Sta rt date: 12/28/16 9:00:00 [employer], Duration: 30 day, Stop date: 01/26/17 9:00:00 [employer]ER Notes: (same as: Bystolic) Start Date: 12/28/16 Stop Date: 12/29/16 Status: Discontinued ceFAZolin (SCIP) 2 gm, 100 mL, Route: IVPB, Drug form: INJ, Q6H, Dosing Weight 97.727, kg, Start date: 12/29/16 15:00:00 [employer], Duration: 6 doses or times, Stop date: 12/30/16 21: 00:00 [employer]ARMER Notes: Same as: Ancef Start Date: 12/29/16 Stop Date: 12/29/16 Status: Discontinued Colace 100 mg oral capsule 100 mg=1 cap, PO, BID, PRN Constipation, # 20 cap, 0 Refill(s) Start Date: 01/01/17 Status: Ordered Diflucan 400 mg, 8 tab, Route: PO, Drug form: TAB, Daily, Dosing Weight 97.727, kg, Start date: 12/30/16 16:00:00 [employer], Duration: 30 day, Stop date: 01/28/17 16:00:00 CDT, Pediatric Dosing Notes: (Same as: Diflucan) Start Date: 12/30/16 Stop Date: 12/31/16 Status: Discontinued docusate 100 mg, 1 cap, Route: PO, Drug form: CAP, BID, Dosing Weight 97.727, kg, Start d ate: 12/28/16 9:00:00 [employer], Duration: 30 day, Stop date: 01/26/17 17:00:00 [employer]ARMER Notes: (Same as: Colace) (Do Not Crush) Start Date: 12/28/16 Stop Date: 01/01/17 Status: Discontinued famotidine 20 mg, 1 tab, Route: PO, Drug form: TAB, BID, Dosing Weight 97.727, kg, PRN Rosa gestion, Start date: 12/29/16 12:27:00 [employer], Duration: 30 day, Stop date: 7 12:26:00 CDT Notes: (Same as: Pepcid) Start Date: 12/29/16 Stop Date: 01/01/17 Status: Discontinued ferrous sulfate 325 mg, 1 tab, Route: PO, Drug form: TAB, ONCE, Start date: 12/31/16 11:05:00 CS T, Stop date: 12/31/16 11:05:00 [employer]ER Notes: Give with food.iron elemental 90yp=149iz as ferrous sulfateDose=___mg ana mental iron Start Date: 12/31/16 Stop Date: 12/31/16 Status: Completed ferrous sulfate 325 mg, 1 tab, Route: PO, Drug form: ECTAB, Daily, Dosing Weight 97.727, kg, Sta rt date: 12/31/16 9:00:00 [employer], Stop date: 01/29/17 9:00:00 CDT Notes: Give with food. "Do Not Crush" Start Date: 12/31/16 Stop Date: 01/01/17 Status: Discontinued Flomax 0.4 mg, 1 cap, Route: PO, Drug form: CAP, Daily, Dosing Weight 97.727, kg, Start date: 12/28/16 9:00:00 [employer], Duration: 30 day, Stop date: 01/26/17 9:00:00 [employer] FARMER Notes: (Same As: Flomax) "Do Not Crush" Start Date: 12/28/16 Stop Date: 01/01/17 Status: Discontinued fluconazole fluconazole, 400 mg / 2 tablets, Drug form: MISC, Route: PO, Q24H, 12/31/16 16:0 0:00 [employer], Duration: 30 day, Stop date: 01/29/17 16:00:00 CDT Start Date: 12/31/16 Stop Date: 01/01/17 Status: Discontinued influenza virus vaccine, inactivated 0.5 mL, Route: IM, Drug Form: SUSP, ONCALL, Start date: 12/27/16 23:00:00 [employer]ER, D uration: 1 doses or times Notes: (Same as: Fluzone Quadrivalent, Fluarix Quadrivalent)For 3 years of age a nd older (0.5 mL IM)Shake well before use Start Date: 12/27/16 Stop Date: 01/01/17 Status: Discontinued Lactated Ringers 1,000 mL 1,000 mL, Rate: 50 ml/hr, Infuse over: 20 hr, Route: IV, Dosing Weight 97.727 kg , Total Volume: 1,000, Start date: 12/29/16 10:27:00 [employer], Duration: 30 day, Stop date: 01/28/17 10:26:00 CDT Start Date: 12/29/16 Stop Date: 12/29/16 Status: Discontinued Lexapro 20 mg, 2 tab, Route: PO, Drug form: TAB, Daily, Dosing Weight 97.727, kg, Start date: 12/28/16 9:00:00 [employer], Duration: 30 day, Stop date: 01/26/17 9:00:00 [employer] FARMER Notes: (Same as: Lexapro) Start Date: 12/28/16 Stop Date: 01/01/17 Status: Discontinued lidocaine 1% 50 mg, 5 mL, Route: INTRADERM, Drug Form: INJ, Dosing Weight 97.727, kg, ONCALL, Start date: 12/29/16 15:00:00 [employer], Duration: 1 day, Stop date: 12/30/16 14:59:00 [employer]ER Notes: (Same as: Xylocaine) Start Date: 12/29/16 Stop Date: 01/01/17 Status: Discontinued Lipitor 20 mg, 1 tab, Route: PO, Drug form: TAB, Daily, Dosing Weight 97.727, kg, Start date: 12/31/16 20:00:00 [employer], Duration: 30 day, Stop date: 01/29/17 20:00:00 CDT Notes: (Same As: Lipitor) Start Date: 12/31/16 Stop Date: 01/01/17 Status: Discontinued Lipitor 20 mg, 1 tab, Route: PO, Drug form: TAB, Daily, Dosing Weight 97.727, kg, Start date: 12/28/16 9:00:00 [employer], Duration: 30 day, Stop date: 01/26/17 9:00:00 MUSSEL FARMER Notes: (Same As: Lipitor) Start Date: 12/28/16 Stop Date: 12/30/16 Status: Discontinued metoprolol tartrate 12.5 mg, 0.5 tab, Route: PO, Drug form: TAB, Q12H, Dosing Weight 97.727, kg, Sta rt date: 12/29/16 14:00:00 [employer], Duration: 30 day, Stop date: 01/28/17 9:00:00 CD T Notes: (Same as: Lopressor) Start Date: 12/29/16 Stop Date: 01/01/17 Status: Discontinued Mobic 15 mg, 2 tab, Route: PO, Drug form: TAB, Daily, Dosing Weight 97.727, kg, Start date: 12/28/16 9:00:00 [employer], Duration: 30 day, Stop date: 01/26/17 9:00:00 MUSSEL FARMER Notes: (Same as: Mobic) Start Date: 12/28/16 Stop Date: 01/01/17 Status: Discontinued morphine Sulfate 4 mg, 0.4 mL, Route: IVP, Drug form: INJ, Q4H, Dosing Weight 97.727, kg, PRN Lamin n Score 7-10, Start date: 12/29/16 12:27:00 [employer], Duration: 30 day, Stop date: 12:26:00 CDT Notes: (Same as:MORPhine Sulfate) Start Date: 12/29/16 Stop Date: 01/01/17 Status: Discontinued Bronson 5/325 oral tablet 2 tab, Route: PO, Drug Form: TAB, Dosing Weight 97.727, kg, Q4H, PRN Pain Score 7-10, Start date: 12/29/16 12:27:00 [employer], Duration: 30 day, Stop date: 01/28/17 1 2:26:00 CDT Notes: (Same as: Bronson 325/5) Do not exceed 4gm/day of acetaminophen. Start Date: 12/29/16 Stop Date: 01/01/17 Status: Discontinued Bronson 5/325 oral tablet 1 tab, Route: PO, Drug Form: TAB, Dosing Weight 97.727, kg, Q6H, PRN Pain Score 1-3, Start date: 12/27/16 23:05:00 [employer], Duration: 30 day, Stop date: 01/26/17 23 :04:00 [employer]SEL FARMER Notes: (Same as: Bronson 325/5) Do not exceed 4gm/day of acetaminophen. Start Date: 12/27/16 Stop Date: 12/29/16 Status: Discontinued ondansetron 4 mg, 2 mL, Route: IVP, Drug form: INJ, Q6H, Dosing Weight 97.727, kg, PRN Nause a & Vomiting, Start date: 12/29/16 12:27:00 [employer], Duration: 30 day, Stop date: 01/28/17 12:26:00 CDT Notes: (Same as: Rosas) MEDICATION WASTE Product Size: 4 mgProduct Was lora: ___ mg Start Date: 12/29/16 Stop Date: 01/01/17 Status: Discontinued ondansetron 4 mg oral tablet, disintegrating 4 mg, 1 tab, Route: PO, Drug form: TABDIS, Q8H, Dosing Weight 97.727, kg, PRN Na usea, Start date: 12/27/16 22:27:00 [employer], Duration: 30 day, Stop date: 01/26/17 2 2:26:00 MUSSEL FARMER Notes: (Same as: Zofran ODT) Start Date: 12/27/16 Stop Date: 01/01/17 Status: Discontinued Plavix 37.5 mg, 0.5 tab, Route: PO, Drug form: TAB, Daily, Dosing Weight 97.727, kg, St art date: 01/02/17 9:00:00 [employer]ER, Duration: 30 day, Stop date: 01/31/17 9:00:00 CD T Notes: (Same As: Plavix) Start Date: 01/02/17 Stop Date: 01/01/17 Status: Canceled polyethylene glycol 3350 17 gm, 1 pkt, Route: PO, Drug form: PWDR, Daily, Dosing Weight 97.727, kg, PRN C onstipation, Start date: 12/29/16 12:27:00 [employer]ER, Duration: 30 day, Stop date: 11/04 12:26:00 CDT Notes: Dissolve in 8 oz of water or juice.(Same as: Miralax) Start Date: 12/29/16 Stop Date: 01/01/17 Status: Discontinued Rifamate oral capsule 2 cap, Route: PO, Dosing Weight 97.727, kg, Daily, Start date: 12/31/16 9:00:00 [employer] F[employer]ER, Duration: 30 day, Stop date: 01/29/17 9:00:00 CDT Start Date: 12/31/16 Stop Date: 12/30/16 Status: Canceled rifaMPIN 600 mg, 4 cap, Route: PO, Drug form: CAP, [id number], Dosing Weight 97.727, kg, Sta rt date: 12/30/16 20:00:00 [employer]ER, Duration: 30 day, Stop date: 01/28/17 20:00:00 C DT Notes: (Same as: Rifadin) Start Date: 12/30/16 Stop Date: 01/01/17 Status: Discontinued rivaroxaban 10 mg, Route: PO, Q24H, Dosing Weight 97.727, kg, Start date: 12/29/16 18:33:00 [employer]ER, Duration: 30 day, Stop date: 01/27/17 18:33:00 [employer]ER Start Date: 12/29/16 Stop Date: 12/29/16 Status: Deleted ropivacaine 100 mL, Route: InFILtration(local), Drug Form: INJ, ONCE, Start date: 12/29/16 8 :22:00 [employer] FARMER, Stop date: 12/29/16 8:22:00 MUSSEL FARMER Notes: NOT FOR IV useRopivacaine 5 mg/mL (49.25 mL) Epinephrine 1 mg/mL (0.5 mL) Clonidine 0.1 mg/mL (0.8 mL) Ketorolac 30 mg/mL (1 mL) Normal Saline 48 .45 mL Start Date: 12/29/16 Stop Date: 12/29/16 Status: Ordered Saline Flush 0.9% 10 mL, Route: IVP, Drug Form: INJ, Dosing Weight 97.727, kg, Q8H, Start date: 16:00:00 [employer]ER, Duration: 30 day, Stop date: 01/28/17 8:00:00 CDT Notes: preservative free. Start Date: 12/29/16 Stop Date: 01/01/17 Status: Discontinued Saline Flush 0.9% 10 mL, Route: IVP, Drug Form: INJ, Dosing Weight 97.727, kg, PRN, PRN Line Flush , Start date: 12/29/16 14:46:00 [employer]ER, Duration: 30 day, Stop date: 01/28/17 15:45 :00 CDT Notes: preservative free. Start Date: 12/29/16 Stop Date: 01/01/17 Status: Discontinued sodium chloride 0.9% 1000 ml INJ 1,000 mL 1,000 mL, Rate: 85 ml/hr, Infuse over: 11.8 hr, Route: IV, Dosing Weight 97.727 kg, Total Volume: 1,000, When PO intake adequate, okay to saline lock, Start cami e: 12/29/16 12:27:00 [employer]ER, Duration: 30 day, Stop date: 01/28/17 12:26:00 CDT Start Date: 12/29/16 Stop Date: 12/30/16 Status: Discontinued sodium chloride 0.9% 1000 ml INJ 1,000 mL 1,000 mL, Rate: 500 ml/hr, Infuse over: 2 hr, Route: IV, Dosing Weight 97.727 kg , Total Volume: 1,000, Start date: 12/31/16 7:55:00 [employer] F[employer]ER, Duration: 1 doses or ti mes, Stop date: 12/31/16 9:54:00 [employer] FARMER Start Date: 12/31/16 Stop Date: 12/31/16 Status: Completed Tylenol 650 mg, 2 tab, Route: PO, Drug form: TAB, Q6H, Dosing Weight 97.727, kg, PRN Lamin n Score 1-3, Start date: 12/29/16 12:27:00 [employer]ER, Duration: 30 day, Stop date: 11/04 12:26:00 CDT Notes: Do not exceed 4 gm/day. (Same as: Tylenol) Start Date: 12/29/16 Stop Date: 01/01/17 Status: Discontinued vancomycin 1.5 gm, 250 mL, Route: IV, Drug form: INJ, Q12H, Dosing Weight 97.727, kg, Start date: 01/01/17 10:30:00 [employer]ER, Stop date: 01/31/17 10:00:00 CDT Notes: TIME CRITICAL MEDICATIONSame as: Vancocin-NS (premixed)Infusion rate< 1000 mg: infuse over 1 [id number] - 1500 mg: infuse over 1.5 [id number] - 2000 mg: infuse over 2 hours> 2001 mg: infuse over 2.5 hours Start Date: 01/01/17 Stop Date: 01/01/17 Status: Discontinued vancomycin 1.25 gm, 250 mL, Route: IV, Drug form: INJ, Q12H, Dosing Weight 97.727, kg, Star t date: 12/31/16 10:00:00 [employer]ER, Duration: 30 day, Stop date: 01/29/17 22:00:00 CD T Notes: TIME CRITICAL MEDICATIONSame as: Vancocin-NS (premixed)Infusion rate< 1000 mg: infuse over 1 [id number] - 1500 mg: infuse over 1.5 [id number] - 2000 mg: infuse over 2 hours> 2001 mg: infuse over 2.5 hours Start Date: 12/31/16 Stop Date: 01/01/17 Status: Discontinued vancomycin 1.5 gm, 250 mL, Route: IV, Drug form: INJ, ONCE, Dosing Weight 97.727, kg, Start date: 12/29/16 10:25:00 [employer] F[employer]ER, Stop date: 12/29/16 10:25:00 MUSSEL FARMER Notes: TIME CRITICAL MEDICATIONSame as: Vancocin-NS (premixed)Infusion rate< 1000 mg: infuse over 1 [id number] - 1500 mg: infuse over 1.5 [id number] - 2000 mg: infuse over 2 hours> 2001 mg: infuse over 2.5 hours Start Date: 12/29/16 Stop Date: 01/01/17 Status: Discontinued vancomycin 1 gm, Route: IVPB, Drug form: INJ, [id number], Dosing Weight 97.727, kg, Start date : 12/30/16 19:00:00 [employer] F[employer]ER, Stop date: 01/29/17 21:00:00 CDT Notes: TIME CRITICAL MEDICATION(Same As: Vancocin)Infusion rate< 1000 mg: infuse over 1 [id number] - 1500 mg: infuse over 1.5 [id number] - 2000 mg: infuse over 2 hours> 2001 mg: infuse over 2.5 hours MEDICATION WASTE Product Size: 1000 mgProduct Wasted: ___ mg Start Date: 12/30/16 Stop Date: 12/31/16 Status: Discontinued vancomycin (SCIP) + sodium chloride 0.9% INJ 250 mL 1,000 mg, Route: IVPB, Q12H, Dosing Weight 97.727, kg, Time Critical Medication, Start date: 12/29/16 22:00:00 MUSSEL FARMER, Duration: 2 doses or times, Stop date: 12/30 10:00:00 MUSSEL FARMER, Pharmacy to adjust dose for renal function Notes: TIME CRITICAL MEDICATION(Same As: Vancocin)Infusion rate< 1000 mg: infuse over 1 [id number] - 1500 mg: infuse over 1.5 [id number] - 2000 mg: infuse over 2 hours> 2001 mg: infuse over 2.5 hours MEDICATION WASTE Product Size: 1000 mgProduct Wasted: ___ mg Start Date: 12/29/16 Stop Date: 12/30/16 Status: Completed vancomycin + sodium chloride 0.9% INJ 250 mL 1,000 mg, Route: IVPB, [id number], Start date: 12/31/16 9:00:00 [employer]SEL FARMER, Duration: 30 d ay, Stop date: 01/29/17 21:00:00 CDT Notes: TIME CRITICAL MEDICATION(Same As: Vancocin)Infusion rate< 1000 mg: infuse over 1 [id number] - 1500 mg: infuse over 1.5 [id number] - 2000 mg: infuse over 2 hours> 2001 mg: infuse over 2.5 hours MEDICATION WASTE Product Size: 1000 mgProduct Wasted: ___ mg Start Date: 12/31/16 Stop Date: 12/31/16 Status: Canceled Vitamin B-100 1 tab, Route: PO, Drug Form: TAB, Dosing Weight 97.727, kg, Daily, Start date: 0 12/28/16 9:00:00 [employer] F[employer]ER, Duration: 30 day, Stop date: 01/26/17 9:00:00 MUSSEL FARMER Notes: (Same As: B-Complex) Start Date: 12/28/16 Stop Date: 01/01/17 Status: Discontinued Wellbutrin XL 300 mg, 2 tab, Route: PO, Drug form: ERTAB, Q24H, Dosing Weight 97.727, kg, Star t date: 12/28/16 9:00:00 [employer] F[employer]ER, Stop date: 01/26/17 9:00:00 MUSSEL FARMER Notes: (Same as: Wellbutrin XL)"Do Not Crush" Start Date: 12/28/16 Stop Date: 01/01/17 Status: Discontinued Zofran 4 mg, 2 mL, Route: IV, Drug form: INJ, Q8H, Dosing Weight 97.727, kg, Start date : 12/30/16 0:00:00 [employer] FARMER, Duration: 3 doses or times, Stop date: 12/30/16 16:00:00 MUSSEL FARMER Notes: (Same as: Zofran) MEDICATION WASTE Product Size: 4 mgProduct Was lora: ___ mg Start Date: 12/30/16 Stop Date: 12/30/16 Status: Completed Results BLOOD BANK RESULTS 1 2 3 Most recent to oldest [Reference Range]: Product available (12/27/16 6:30 PM) RBC product ELECTROLYTES 1 2 3 Most recent to oldest [Reference Range]: 142 mEq/L (01/01/17 5:50 AM) 138 mEq/L (12/30/16 5:33 AM) Sodium Lvl [135-145 mEq/L] 4.3 mEq/L (01/01/17 5:50 AM) 4.1 mEq/L (12/30/16 5:33 AM) Potassium Lvl [3.5-5.1 mEq/L] 107 mEq/L (01/01/17 5:50 AM) 105 mEq/L (12/30/16 5:33 AM) Chloride Lvl [95-109 mEq/L] 28 mEq/L (01/01/17 5:50 AM) 25 mEq/L (12/30/16 5:33 AM) CO2 [24-32 mEq/L] 11.3 mEq/L (01/01/17 5:50 AM) 12.1 mEq/L (12/30/16 5:33 AM) AGAP [10.0-20.0 mEq/L] CHEM PANEL 1 2 3 Most recent to oldest [Reference Range]: 0.93 mg/dL (01/01/17 5:50 AM) 0.91 mg/dL (12/30/16 5:33 AM) Creatinine Lvl [0.50-1.40 mg/dL] 81 mL/min/1.73m2 1 *NA* (01/01/17 5:50 AM) 83 mL/min/1.73m2 2 *NA* (12/30/16 5:33 AM) eGFR 17 mg/dL (01/01/17 5:50 AM) 16 mg/dL (12/30/16 5:33 AM) BUN [7-22 mg/dL] 98 mg/dL (01/01/17 5:50 AM) 146 mg/dL *HI* (12/30/16 5:33 AM) Glucose Lvl [70-99 mg/dL] 7.9 mg/dL *LOW* (01/01/17 5:50 AM) 7.4 mg/dL *LOW* (12/30/16 5:33 AM) Calcium Lvl [8.5-10.5 mg/dL] 3.4 mg/dL (12/28/16 3:58 AM) Phosphorus [2.5-4.5 mg/dL] 1.8 mg/dL (12/27/16 6:18 PM) Magnesium Lvl [1.8-2.4 mg/dL] 1Result Comment: The eGFR is calculated using [...] be mul tiplied by the estimated BMI. 2Result Comment: The eGFR is calculated using the [...] be mul tiplied by the estimated BMI. TOXICOLOGY 1 2 3 Most recent to oldest [Reference Range]: 01/03/17 *NA* (01/01/17 9:06 AM) sunday *NA* (12/31/16 8:21 AM) Vanco Tr TND 17.5 ug/ml *NA* (01/01/17 5:50 AM) Vanco Lvl 13.1 ug/ml *NA* (01/01/17 9:06 AM) 10.7 ug/ml *NA* (12/31/16 8:21 AM) Vanco Tr IMMUNOLOGY 1 2 3 Most recent to oldest [Reference Range]: 32.7 mg/L *HI* (01/01/17 5:50 AM) CRP [<=2.9 mg/L] HEMATOLOGY 1 2 3 Most recent to oldest [Reference Range]: 6.1 K/CMM (01/01/17 5:50 AM) 7.9 K/CMM (12/31/16 6:00 AM) 10.1 K/CMM (12/30/16 5:33 AM) WBC [3.7-10.4 K/CMM] 2.82 M/CMM *LOW* (01/01/17 5:50 AM) 2.78 M/CMM *LOW* (12/31/16 6:00 AM) 3.35 M/CMM *LOW* (12/30/16 5:33 AM) RBC [4.70-6.10 M/CMM] 8.8 g/dL *LOW* (01/01/17 5:50 AM) 8.7 g/dL *LOW* (12/31/16 6:00 AM) 10.4 g/dL *LOW* (12/30/16 5:33 AM) Hgb [14.0-18.0 g/dL] 26.6 % *LOW* (01/01/17 5:50 AM) 26.2 % *LOW* (12/31/16 6:00 AM) 31.8 % *LOW* (12/30/16 5:33 AM) Hct [42.0-54.0 %] 94.2 fL *HI* (01/01/17 5:50 AM) 94.1 fL *HI* (12/31/16 6:00 AM) 94.9 fL *HI* (12/30/16 5:33 AM) MCV [80.0-94.0 fL] 31.1 pg *HI* (01/01/17 5:50 AM) 31.4 pg *HI* (12/31/16 6:00 AM) 31.2 pg *HI* (12/30/16 5:33 AM) MCH [27.0-31.0 pg] 33.1 g/dL (01/01/17 5:50 AM) 33.4 g/dL (12/31/16 6:00 AM) 32.9 g/dL (12/30/16 5:33 AM) MCHC [32.0-36.0 g/dL] 14.3 % (01/01/17 5:50 AM) 13.9 % (12/31/16 6:00 AM) 13.8 % (12/30/16 5:33 AM) RDW [11.5-14.5 %] 111 K/CMM *LOW* (01/01/17 5:50 AM) 109 K/CMM *LOW* (12/31/16 6:00 AM) 119 K/CMM *LOW* (12/30/16 5:33 AM) Platelet [133-450 K/CMM] 10.3 fL (01/01/17 5:50 AM) 10.6 fL *HI* (12/31/16 6:00 AM) 10.1 fL (12/30/16 5:33 AM) MPV [7.4-10.4 fL] 52.8 % (01/01/17 5:50 AM) 58.6 % (12/31/16 6:00 AM) 76.9 % *HI* (12/30/16 5:33 AM) Segs [45.0-75.0 %] 29.1 % (01/01/17 5:50 AM) 27.5 % (12/31/16 6:00 AM) 13.3 % *LOW* (12/30/16 5:33 AM) Lymphocytes [20.0-40.0 %] 11.1 % (01/01/17 5:50 AM) 10.3 % (12/31/16 6:00 AM) 9.7 % (12/30/16 5:33 AM) Monocytes [2.0-12.0 %] 6.5 % *HI* (01/01/17 5:50 AM) 3.4 % (12/31/16 6:00 AM) Eosinophils [0.0-4.0 %] 0.5 % (01/01/17 5:50 AM) 0.2 % (12/31/16 6:00 AM) 0.1 % (12/30/16 5:33 AM) Basophils [0.0-1.0 %] 3.2 K/CMM (01/01/17 5:50 AM) 4.6 K/CMM (12/31/16 6:00 AM) 7.8 K/CMM (12/30/16 5:33 AM) Segs-Bands # [1.5-8.1 K/CMM] 1.8 K/CMM (01/01/17 5:50 AM) 2.2 K/CMM (12/31/16 6:00 AM) 1.3 K/CMM (12/30/16 5:33 AM) Lymphocytes # [1.0-5.5 K/CMM] 0.7 K/CMM (01/01/17 5:50 AM) 0.8 K/CMM (12/31/16 6:00 AM) 1.0 K/CMM *HI* (12/30/16 5:33 AM) Monocytes # [0.0-0.8 K/CMM] 0.4 K/CMM (01/01/17 5:50 AM) 0.3 K/CMM (12/31/16 6:00 AM) Eosinophils # [0.0-0.5 K/CMM] 15 mm/hr (01/01/17 5:50 AM) Sed Rate [0-15 mm/hr] 14.2 seconds (12/28/16 3:58 AM) PT [12.0-14.7 seconds] 1.08 (12/28/16 3:58 AM) INR [0.85-1.17] 29.9 seconds (12/28/16 3:58 AM) PTT [22.9-35.8 seconds] Immunizations No data available for this section [...] No Assessment and Plan Extracted from: Title: Progress Note Author: Kevin Christian MD Date: 01/01/17 Assessment/Plan 1.Hip dislocation, left -s/p revision KARON,toleratedwell -h/o septic arthritis with MRSA and jaycee 08/2016.on Vanco, rifampinand fluconazole per ID. Vancodose adjusted to vanco trough.Will need 6 weeks of IV abx.Aspiration culture negative so far. -ESR and CRP elevated -Pain control, bowel regimen, Incentive spirometry, judicial hydration per Primary 2.Osteoarthritis -s/p left KARON 10 yr ago, multiple lefthip joint dislocation and reduction.nows/p revision KARON and open reduction 3.Ventricular bigeminy -resolved after starting Metoprolol.now NSR. 4.BPH (benign prostatic hyperplasia) cont home meds 5.Stroke -related to left ICA occlusion s/p lt ICA stent,occasional aphasia without additional motor and sensory residual -cont ASA 325 mg bid for DVT ppx -resume plavix home dose -cont lipitor 6.Hypertension BP ok withoutantihypertensive. offmetoprolol due to episodes of hypotension and now sinus rhythm 7.Anxiety -on home meds 8. Acute blood loss anemia -H/H slightly trend down. Hemovac discontinued. 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 Revision left total hip replacement - placement of constrained liner 2. Repair of partial abductor muscule tear 3. Extensive synovectomy of left hip joint 4. Left hip pericapsular pain blockade ANESTHESIA: General anesthesia ESTIMATED BLOOD LOSS: 250 mL IV FLUIDS: See anesthesia report COMPLICATIONS: None identified intraoperatively SPECIMENS: Tissue x 3 and fluid sent for culture FINDINGS: 1. Well fixed femoral component in 10 deg of anteversion 2. Well fixed and positioned acetabular component (30 anteversion/40deg abduction) - Intraoperative coupling adequate/apex posterior on Ranawat test 3. Abductor muscle tear 25% of unstertion 4. Recurrent instability with adequately positioned components --->constrained liner required 5. Previous intraopertive culture ++MRSA - intraoperative frozen section today read 5 PMN/HPF - will treat although no evidence of PJI 6. Posterior impingement noted at flexion and max extenral rotation but this did not dislcoate hip anteriorly IMPLANTS USED: 1. Depuy 66mm/32mm Neutral Constrained liner 2. 32mm + 5 Ceramic Femoral head with Ti Sleeve INDICATIONS: Mr. Carrillo is a very pleasant 76-year-old patient who underwent a primary left total hip arthroplasty years ago and udnerwent a revision left total hip replacement last August due to polyethylene wear and recurrent instability. He was doing very well but does report two episodes of dislocation the last one two days ago. I reduced this dislocation and noted significant instability and easy redislocation with minimal ROM. Xrays during pre-operative evaluation showed adequate component positioning. With this in mind I felt Mr. Carrillo had clear indications for revision total hip replacement, evaluation of component position and consideration of a constrained liner due to instability with well positioned components. He also had a history of MRSA positive cultures and I planned for an intraoperative frozen section. Preoperatively, the nature of the procedure and its complexity, risks, benefits, and alternatives were discussed in great detail with the patient and his . All risks discussed were documented previously. Possible complications include but are not limited to, fractures of femur or acetabulum, re-dislocation and acetabular component loosening, excessive bleeding and need for transfusion, stem failure, chronic hip and leg pain, prosthetic re-dislocation and failure of the constrained liner, sciatic nerve damage and foot drop, deep vein thrombosis, pulmonary embolism, stroke, heart attack, . Also, the risk of rediscolation is high given the revision procedure and in the case of utilizing a constrained liner, the possibilityy of acetabular component loosening is present. He appeared to understand these many issues, and the patient desired to proceed with surgery. All questions were answered preoperatively prior to obtaining informed consent. PROCEDURE IN DETAIL: On the morning of December 29, 2016, the patient was brought to the operating room and following administration of general endotracheal anesthesia by the anesthesiology service, the patient was given 2 g of Ancef IV as antibiotic prophylaxis. Tranexamic acid was given topically at 10 mg/kg. The patient was placed on the operating table in the right lateral decubitus position with the left side up and was held in position using hip positioners. An axillary roll was placed and care was taken to pad all bony prominences including the ulnar and peroneal nerves. Following sterile prepping and draping, a formal timeout protocol was done to again identify the appropriate operative site, which had been previously marked, the left hip and thigh joint had a visible deformity secondary to the dislocation. The previous posterolateral incision and approach was done extending it distally to a lateral approach to the femur. Proximally, the dissection was carried through the skin and subcutaneous tissues down to the gluteus fascia. The gluteus guerita fascia was opened in line with the muscle fibers. Hematoma was noted upon opening of fascia and cultures were taken and tissue was sent for culture as well. There was extensive scar tissue and the fascial layers were scarred to the trochanter and underlying gluteus medius and other soft tissues. A partial tear of the gluteus medius muscle was noted. This scar tissue was elevated prior to placement of a Charnley retractor. All scar tissue was resected. Care was taken to coagulate all bleeders around the capsule. The hip joint was exposed at this time. No adequate capsule was present to be repaired at the end of the case. Intraoperative frozen section was taken and results as above. A thorough debridement of the extensive scar tissue around the hip joint was made. I started working on the posterior synovium into the oburator foramen until a Ranawat retractor was placed in the obturator foramen, this protected the sciatic nerve. Care was always taken to protect the sciatic nerve. The superior and anterior capsue and all impinging tissue was also removed at this time, including about 25% of the posterior trochanteric bone. There were anterior acetabular bony osteophytes and portions of thickened capsule were also removed. Hip stability check was done at this time and abovefindings were noted. Hip stability was adequate but given his history of instability, decision was made to place a constrained liner. At this time, the hip was dislocated posteriorly and the femoral head was desimpacted. No evidence of corrosion was noted. The stem was evaluated at this time and noted to be adequately anteverted. At this time attention was placed on acetabular exposure to better evaluate the acetabular component position and stability. The PE liner was removed and the component was found to be in acceptable position and was well fixed/stable. Attention was then turned to trialing and re evaluation of component coupling, positioning, and leg length status. Ranawat test with a neutral 66mm/32mm trial liner showed apex posterior orientation and stability evaluation showed that the hip was stable up to 80 deg of internal rotation and maximal adduction/flexion 90 deg. No dislocation moment or impingement was noted at this time. This was with a constrained liner. Leg lengths and offset appeared adequate with these tiral components. With these trial components in place, all impinging residual anterior tissue was removed. Afterwards, all trials were removed and the final neutral acetabular CONSTRAINED liner and femoral head were placed and the hip was reduced. The constrained ring was placed succesfully and impacted. Seating of the ring was confirmed. All prev ious findings of positioning, leg lengths, and stability were noted and not changed after final component placement and hip reduction. Prior to final component placement, 6 L of NSS were used for extensive debridement. The pericapsular blockade with REC was done at this time/100cc total. After hip reduction, attention was turned to repair of the abductor musculature. Drill holes were made on the trochanter and the insertion was debrided until bleeding bone was noted. Gladwyne stitches were made in the gluteus medius and the muscle was repaired back to the trochanteric bone. A good repair was obtained. Final check of hip stability and leg lengths was acceptable. After final irrigation with 3L NSS, attention was then turned to wound closure.Vancomycin powder was placed intra-articular. The deep fascia was closed with #1 PDS suture. Subcutaneous tissues were closed with 0 and 2-0 Monocryl. The skin was closed with Nylon 2-0 and a VAC system wasl placed/incisional VAC. The patient was awakened, extubated and taken to the recovery room in stable condition. The patient tolerated this procedure well. He will perform PT bid with weight bearing as tolerated maintaining posterior hip precautions. Extracted from: Title: Orthopedic Surgery Author: Giovanni Diane Date: 12/27/16 History and Physical Institution: [facility] Date of Admission: 12/27/2016 Patient Name: HERMINIA CARRILLO : 1940 Chief Complaint Dislocated left hip prosthesis, recurrent instability History of Present Illness Mr. Carrillo is a very pleasant 76 year old man with PMH of CVA, HTN, BPH, and history of multiple hip dislocations for which he underwent a revision on August 2016 with exchange of his PE liner. He has had 2 dislcoations since that time including todays. He presented again today after he felt his left hip dislocate. Today we attempted a closed reduction of his prosthesis and were successful but the patient had easy dislocation of his prosthesis with minimal flexion and abduction. Currently, he complains of minimal pain after the reduction and is eager to get this problem fixed. At home, he is fairly active, and earlier today he was able to take his dog on a walk. He denies any chest pain, no orthopnea, no PND, no LOC, no deficits after his stroke. 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 Social history: denies any smoking or drug use, occasional alcohol use Medications: Lipitor 20mg Flomax 0.4mg daily Wellbutrin 300mg daily Lexapro 20mg dialy Asp 81mg daily Plavix 37.5mg daily Bystolic 2.5mg daily Avodart 0.5mg daily Review of Systems Constitutional: No fever, No chills, No sweats. Eye: No icterus, No blurring, No double vision. Ear/Nose/Mouth/Throat: Negative, No ear pain, No nasal congestion, No sore throat. Respiratory: Negative. Cardiovascular: Negative. Gastrointestinal: Negative. Genitourinary: Negative. Hematology/Lymphatics: Negative. Endocrine: Negative. Immunologic: Negative. Musculoskeletal: Negative except as documented in history of present illness. Integumentary: Negative. Neurologic: Negative. Psychiatric: Negative. Health Status Allergies: Allergic Reactions (All) Severity Not Documented NKDA- No reactions were documented., Allergies (1) ActiveReaction NKDANone Documented Current medications: (Selected) Prescriptions Prescribed Mobic 15 mg oral tablet: 15 mg, 1 tab, PO, Daily, 30 tab, 0 Refill(s) aspirin 81 mg tablet, chewable: 81 mg, 1 tab, PO, BID, for 28 day, 56 tab, 0 Refill(s) Documented Medications Documented Avodart 0.5 mg oral capsule: 0.5 mg, 1 cap, PO, Daily, 0 Refill(s) Bystolic 2.5 mg oral tablet: 2.5 mg, 1 tab, PO, Daily, 0 Refill(s) Flomax 0.4 mg oral capsule: 0.4 mg, 1 cap, PO, Daily, 0 Refill(s) Lexapro 20 mg oral tablet: 20 mg, 1 tab, PO, Daily, 0 Refill(s) Lipitor 20 mg oral tablet: 20 mg, 1 tab, PO, Daily, 0 Refill(s) Plavix 75 mg oral tablet: 1/2 tab, PO, Daily, 0 Refill(s) Vitamin B-100: 1 tab, PO, Daily, 0 Refill(s) Wellbutrin XL 300 mg/24 hours oral tablet, extended release: 300 mg, 1 tab, PO, Q24H, 0 Refill(s), Histories Past Medical History: Active BPH (benign prostatic hyperplasia) (3349947877) Resolved Hypertension (1743003643): Resolved. Hyperlipidemia (40444882): Resolved. Stroke (391926399): Resolved. Family History: Heart disease Mother High blood pressure Mother Procedure history: Laminectomy (7794530813). Fusion of joint of cervical spine with internal fixation by anterior approach (8524489515). Ear operations (0060625450). Hip replacement (8748829368). Hip joint operations (1952589571). Comments: 09/11/2016 12:10 - Keely Terry RN 10 years ago Shoulder joint operations (442049953). Biceps tunnel cineplasty (366332). Physical Exam Vital signs: VitalsTmp(F)[id number] 12/27 19:2397.065224/94--99 2.0L/m 12/27 18:45----79761/980048--- 12/27 18:30----93941/017519--- 12/27 18:15----25994/624290--- 12/27 18:588466143/2269432 2.0L/m 24 Hr Tmax: 98F (36.67c) at 12/27 18:00Vital Signs are the last 5 in the past 48 hours. General: Awake, Alert oriented HEENT: neck ROM without pain or discomfort Cardiovascular: RRR, normal chest excursion Respiratory: Normal chest motion without pain on rib palpation Abdomen: non distended and depressible Extremities: Left was shortened and externally rotated, severe pain on any attempted ROM, DP +2 and symmetric EHL/TA - no foot drop, post reduction leg lengths are clinically equal, hip ROM with groin discomfort. Integumentary: surgical incision in left hip is healed, no rashes noted Neurologic: unable to assess gait due to dislocation, EHL 5/5 on MMT, TA 5/5 on MMT, sensation L3-L5 intact Xrays AP Left hip, Pelvis AP and Cross table lateral xrays were obtained and interpreted from orthopedic standpoint there is a periprosthetic left hip anterior dislocation/anterior dislocation, well positioned acetabular and femoral components. Post reduction Xrays show adequate reduction and component positioning, no fractures or dislocations ASSESSMENT & EXAM Left hip periprosthetic dislocation with instability after reduction. Hip is easily dislocated with hip flexion and external rotation Patient will require revision surgery given his residual instability. This will entail revision of his acetabular component or change to a constrained liner. I will proceed with his surgery on Sunday due to his Plavix use. Today I have discussed all of my findings with Mr. Carrillo and his . They understand the complexity of his diagnosis and all management options. Today I have performed a closed reduction under conscious sedation for acute pain control until his revision procedure is performed Sunday. They have agreed. PLAN & TREATMENT -Schedule revision THR Sunday, possible constrained liner versus acetabular component revision -DVT prophylaxis as per hospitalist and hold before surgery -Hold Plavix -Preoperative cardia risk assessment -Regular diet tomorrow
--- OUTSIDE RECORDS SUMMARY | 2018-11-06 10:36 | XMS REPORT ---
[facility] Address Unknown Phone Unavailable Care Team Providers Care Police Captain Name Role Phone XIMENA MARRERO Unavailable Unavailable Problems This patient has no known problems. Allergies, Adverse Reactions, Alerts This patient has no known allergies or adverse reactions. Medications This patient has no known medications. Results Test Description Test Time Test Comments Text Results Atomic Results Result Comments MRI BRAIN WO 2018-09-11 15:26:00 [place] [address] Patient Name: HERMINIA CARRILLO MR #: [id number] : 1940 Age/Sex: 77/M Req #: [id number] [facility] Physician: Ordered by: XIMENA MARRERO MD Report #: [id number] Location: MRI Room/Bed: Procedure: [id number] MRI/MRI BRAIN WO Exam Date: Exam Time: REPORT STATUS: Signed History: Fatigue Comparison studies: CT head and MRI brain 08/11/2010 Technique: Sagittal T2; axial DWI, FLAIR, MPGR, T1, Coronal FLAIR. Intravenous contrast: None Findings: Scalp: Normal in signal . No masses . Bone marrow: Normal in signal intensity. Extra-axial: No masses, no fluid collections. Brain sulci: Appropriate for age. Ventricles: Asymmetric exvacuodilatation of the left lateral ventricle . No hydrocephalus . Parenchyma: Scattered and confluent T2/flair hyperintensities of the periventricular and the white matter. Cortical-based T2/hyperintensity at the left mid frontal and precentral gyri with associated volume loss No masses, hemorrhage, acute or chronic vascular insults. Suprasellar region: No abnormalities. Craniocervical junction: No abnormalities. Patent foramen magnum. No Chiari one malformation. Vessels: Normal flow-voids in the arteries and sinuses.. Partially visualized posterior disc osteophyte complex and ligamentum flavum thickening results in at least moderate canal stenosis at C2-3. Mucous retention cyst at the left maxillary sinus, nonspecific. IMPRESSION: 1. No acute intracranial abnormalities. 2. Moderate chronic microvascular ischemic changes of the white matter. Remote insult at the left middle frontal and inferior precentral gyri. Mild diffuse volume loss 3. Partially visualized moderate canal stenosis at C2-3 Signed by: DR Nando Boykin M.D. on 09/11/2018 3:33 PM Dictated By: NANDO CONDON MD [id number] Transcribed By: SANTA on 09/11/18 1533 COPY TO: XIMENA MARRERO MD
[2018-11-06] MEDS ORDERED: SODIUM CHLORIDE 0.9% 1000ML 1,000 ML ONE ×3 (11:00→13:53)
[2018-11-06] MEDS ORDERED: DIPHENHYDRAMINE HCL 25 MG CAP ONE (11:00)
[2018-11-06] MEDS ORDERED: ALPRAZOLAM 0.5 MG TAB ONE (11:00)
--- NOTE | 2018-11-06 11:20 | NUR ---
PT AMBULATED TO BAY #20. PREPROCEDURE TEACHING PROVIDED TO PT AND SPOUSE AUGUSTO. AAOX3, VSS. PREPPED PER PROCEDURES ORDERS. PATENT, 22G IV INITIATED TO L WRIST. DP/PT PULSES PALPABLE. BENADRYL 50MG PO X1 AND XANAX 0.5MG PO X1 ADMINISTERED ORDERED. BED IN LOWEST POSITION, SIDE RAILS UP, CALL LIGHT WITHIN REACH. DENIED PAIN OR NEEDS AT THIS TIME.
[2018-11-06 11:25] VITALS: BP 133/94
[2018-11-06] MEDS ORDERED: TYLENOL325 MG PO (12:25)
[2018-11-06] MEDS ORDERED: OSTEO BI-FLEX1 EAC2 PO (12:25)
[2018-11-06] MEDS ORDERED: VITAMIN B COMP1 EACH PO (12:25)
[2018-11-06] MEDS ORDERED: CELEBREX100 MG PO (12:25)
[2018-11-06] MEDS ORDERED: ASPIR 8181 MG PO (12:25)
[2018-11-06] MEDS ORDERED: STOOL SOFTENER50 MG PO (12:25)
[2018-11-06] MEDS ORDERED: MIDAZOLAM HCL 2 MG/2 ML VIAL ONE ×2 (12:40→14:24)
[2018-11-06] MEDS ORDERED: LIDOCAINE HCL 2% LOCAL 20 ML VIAL ONE ×2 (12:40→14:49)
[2018-11-06] MEDS ORDERED: FENTANYL CITRATE/PF 100MCG/2 ML INJ ONE ×2 (12:40→14:24)
[2018-11-06] MEDS ORDERED: IOPAMIDOL 370 MG/ML 200 ML INFUS..BTL INJ ONE (12:41)
[2018-11-06] MEDS ORDERED: HEPARIN SOD/SOD CHLORIDE 2,000 ML ONE (12:41)
[2018-11-06] MEDS ORDERED: BACITRACIN 50,000 UNIT VIAL ONE (13:51)
[2018-11-06] MEDS ORDERED: SODIUM CHLORIDE 0.9% 500ML 500 ML ONE (13:52)
[2018-11-06] MEDS ORDERED: VANCOMYCIN 1GM/NS 250 ML 250 ML ONE (14:23)
--- NOTE | 2018-11-06 16:22 | NUR ---
spoke with mimi in [employer] who gave me report for pt who received a heart cath with no interventions and a placement of pacemaker. asked mimi if pt was coming with telemetry. rn said yes awaiting for pt to arrive to unit
--- NOTE | 2018-11-06 16:40 | Consultation ---
DATE OF CONSULTATION: November 06, 2018 REASON FOR CONSULT: Bradycardia. HISTORY OF PRESENT ILLNESS: This is a 77-year-old gentleman with history of hypertension, who has had the presence of dizziness. He has had event monitor demonstrating episodes of bradycardia and episodes of sinus pauses that occurred with his dizziness. No reversible causes. He was admitted and underwent a left heart catheterization demonstrating no significant coronary artery disease. We were consulted to consider a pacemaker. No syncope. REVIEW OF SYSTEMS CONSTITUTIONAL: As per HPI. CARDIOVASCULAR: As per HPI. RESPIRATORY: Negative. GASTROINTESTINAL: Negative. GENITOURINARY: Negative. MUSCULOSKELETAL: Negative. HEENT: Eyes: Negative. ENT negative. ALLERGY/IMMUNOLOGY: Negative. PSYCHIATRIC: Negative. PAST MEDICAL HISTORY: Hypertension. SURGICAL HISTORY: Negative. FAMILY HISTORY: No premature coronary artery disease. SOCIAL HISTORY: Positive for smoking. No alcohol. No illicit drugs. PHYSICAL EXAMINATION VITALS: Blood pressure 170/60, pulse 60, respirations 20, O2 sats 98%. GENERAL: No acute distress. HEENT: Moist mucous membranes. CARDIOVASCULAR: Regular. RESPIRATORY: Clear. ABDOMEN: Soft and nontender. MUSCULOSKELETAL: Two plus distal pulses. NEUROLOGICAL: No focal deficit. PSYCHIATRIC: Normal thought process. SKIN: No lesions. EKG is sinus rhythm. IMPRESSION 1. Symptomatic bradycardia. 2. Sinus node dysfunction with dizziness: No reversible causes. Having sinus pauses. RECOMMENDATIONS: I had a long discussion with the patient. He has a strong indication for pacing. Went over details, benefits and risks of the procedure. The patient voices understanding and wishes to proceed. Plan for a dual chamber pacemaker placement. Job#: [id number] HOA
--- NOTE | 2018-11-06 16:48 | NUR ---
received pt to floor aa0x3. right groin is dry and intact. left chest is covered with pressure dressing that is dry and intact. pt has a sling to the left arm. left wrist 18 g with vanc running. site is clean and dry. pt is not on tele , trasferring nurse states saadia said it was not necessary. will call md to verify orders. will continue to care for pt at this time. side railsx2, bed wheels locked ,call light is within easy reach, instructed to call for assistance if needed
[2018-11-06 16:50] VITALS: BP 161/83
--- NOTE | 2018-11-06 16:54 | Operative Report ---
DATE OF PROCEDURE: November 06, 2018 PREPROCEDURE DIAGNOSES 1. Symptomatic bradycardia. 2. Sinus node dysfunction. 3. Symptomatic sinus pauses. POSTPROCEDURE DIAGNOSES 1. Symptomatic bradycardia. 2. Sinus node dysfunction. 3. Symptomatic sinus pauses. ESTIMATED BLOOD LOSS: 5 mL. PROCEDURES PERFORMED 1. Dual-chamber pacemaker placement. 2. Moderate sedation. Moderate conscious sedation was provided under my direct supervision by a sedation-trained nurse. Sedation approximate time 30 minutes, Versed and fentanyl. There were no complications. See sedation form for details. DESCRIPTION OF PROCEDURE: After informed consent was obtained, patient was brought to the electrophysiology laboratory in a fasting, nonsedated state. Area over his chest was prepped and draped in the usual sterile fashion. Moderate sedation and prophylactic antibiotic were given. Lidocaine 1% was used as local anesthetic, and a 3-cm skin incision was made in the left supraclavicular area. Electrocautery, sharp and blunt dissection were used to reach the muscular fascia, and a pocket was created for eventual implantation of the device. Vascular access was obtained x2 in the left axillary vein using the modified Seldinger technique under fluoroscopic guidance. Two 6-Gambian sheaths were placed, right ventricular lead advanced at the RV apex. R wave 18, pacing 0.6 at 0.5, impedance 1000. The atrial lead to the right atrial appendage. P wave 3, pacing 1.1 at 0.5, impedance 800. Sheaths were removed from the body. Leads were secured to fascia using 0 silk. Pocket was irrigated with antibiotic solution using the pulse creative/art director. Hemostasis was meticulous. Leads were connected to the device and the entire pacemaker system placed in the pocket. Incision was closed using absorbable sutures and Dermabond. Patient tolerated the procedure well. Procedure was deemed complete. SUMMARY OF HARDWARE IMPLANTED The new pacemaker is [employer], model number [id number], [id number]. The atrial lead is [employer] [id number], [id number]. The ventricular lead is [employer] 7742, [id number]. IMPRESSION: Successful dual-chamber pacemaker implant via left axillary vein. PLAN 1. Routine postop monitoring in telemetry bed. 2. Chest x-ray. 3. Followup in 2 weeks. Job#: [id number] EV
--- OUTSIDE RECORDS SUMMARY | 2018-11-06 17:18 | XMS REPORT | Clinical Summary ---
Author Author [facility] Organization [facility] Address Unknown Phone Unavailable Care Team Providers Care Regulatory Affairs Coordinator Name Role Phone Winnie Ronquillo MD PCP [...] / Group [employer] MED[employer]ARE [employer] xxxxxxxxx HMO [employer] TRE xxxxxxxx Commercial HEALTH & LIFE Advance Directives Patient has advance care planning documents on file. For more information, odell solares contact: Gary Whitmore [address] [place] [address]
[2018-11-06] MEDS ORDERED: BYSTOLIC10 MG PO (17:28)
[2018-11-06] MEDS ORDERED: ACETAMINOPHEN 325 MG TAB PO PRN (17:30)
[2018-11-06] MEDS ORDERED: DOCUSATE SODIUM 100 MG CAP PO PRN (17:30)
[2018-11-06] MEDS ORDERED: MORPHINE SULFATE 2 MG/ML SYR IV PRN (17:30)
[2018-11-06] MEDS ORDERED: MORPHINE SULFATE INJ 4 MG/ML INJ IV PRN ×2 (17:30)
[2018-11-06] MEDS ORDERED: TRAMADOL HCL 50 MG TAB PO PRN (17:30)
[2018-11-06] MEDS ORDERED: HYDRALAZINE HCL 20 MG/ML VIAL IV PRN (17:45)
[2018-11-06] MEDS ORDERED: DOCUSATE SODIUM LIQD 100 MG/10 ML UDC PO PRN (17:45)
--- NOTE | 2018-11-06 17:46 | NUR ---
spoke with md zee at this time , states pt is to be on telemetry, verified written orders written by md zee, are now on computer. states pt is to be sl, no fluids needed. prn blood pressure medication given for a systolic greater than 170. home medications continued will continue care at this time
--- NOTE | 2018-11-06 17:48 | NUR ---
telemetry placed . pt is atrial paced at 61
--- NOTE | 2018-11-06 18:34 | Diagnostic Imaging Report ---
EXAMINATION: CHEST X-RAY POST PROCEDURE COMPARISON: None INDICATION: Pacemaker placement DISCUSSION: Frontal view of the chest obtained at 1743 hours. HEART AND MEDIASTINUM: Mild cardiomegaly. LINES: Dual lead pacemaker leads are poorly visualized. The lead in the right ventricle is visible and in appropriate position. LUNGS: Lung volumes are low with mild eventration of the right diaphragm.. No pneumonia or pulmonary edema. PLEURA: No pleural effusion or pneumothorax. BONES AND SOFT TISSUES: Fusion hardware in the lower cervical spine is partially visualized. The soft tissues are normal. IMPRESSION: 1. Pacemaker as described above. No pneumothorax. 2. Cardiomegaly and low lung volumes with mild eventration of the right diaphragm. Signed by: Dr. Crystal Mayers MD on 11/06/2018 6:31 PM
[2018-11-06 20:25] VITALS: BP 121/72
[2018-11-06] MEDS ORDERED: NEBIVOLOL 10 MG TAB PO SCH (21:00)
[2018-11-06 23:57] VITALS: BP 147/88
[2018-11-07 04:00] VITALS: BP 136/79
[2018-11-07 08:01] VITALS: BP 149/93
[2018-11-07 08:03] VITALS: BP 149/93
[2018-11-07] MEDS ORDERED: CLOPIDOGREL BISULFATE 75 MG TAB PO SCH (09:00)
[2018-11-07] MEDS ORDERED: ASPIRIN 81 MG CHEW TAB PO SCH (09:00)
[2018-11-07] MEDS ORDERED: CELECOXIB 200 MG CAP PO SCH (09:00)
[2018-11-07] MEDS ORDERED: CELECOXIB 100 MG CAP PO SCH (09:00)
[2018-11-07] MEDS ORDERED: BUPROPION HCL SR 150 MG TAB PO SCH (09:00)
[2018-11-07] MEDS ORDERED: ESCITALOPRAM OXALATE 10 MG TAB PO SCH (09:00)
[2018-11-07 12:10] VITALS: BP 136/81
[2018-11-07] MEDS ORDERED: MINOCYCLINE HCL50 MG PO (12:54)
--- NOTE | 2018-11-07 13:45 | NUR ---
spoke with md savage ordered ok for discharge. spoke with md zee and ok discharge. discharge instructions over pacemaker given and follow up explained. md savage states box for pacemaker that family request will be given at follow up visit next week. iv dc pressure dressing applied and tapped, pt is ready for dc at this time
--- NOTE | 2018-11-07 14:14 | NUR ---
pt off to home at this time via wheel chair
== END 2018-11-07 14:05 | disposition home or self-care (01) ==
LOC: CATH LAB 10:32 → CATH LAB V 17:14 → MED/SURG 17:19
PROVIDERS: ADMIT Internal Medicine Interventional Cardiology; ATTEND Internal Medicine Interventional Cardiology
DX: G45.9 Transient cerebral ischemic attack, unspecified (principal); I49.5 Sick sinus syndrome; I65.29 Occlusion and stenosis of unspecified carotid artery; I20.9 Angina pectoris, unspecified; I45.5 Other specified heart block
CPT/HCPCS: 33208; 36222; 36415; 71045; 80053; 80061; 85025; 93454; C1769; C1785; C1898; G0378 ×2; J2001; J2250; J3370; J7030; J7040; Q9967

== ENCOUNTER 2018-11-14 16:15 | Observation (INO) | payer MEDICARE ==
[~2018-11-14] VITALS: Ht 170.2 cm; Wt 100.5 kg
[~2018-11-14 16:15] MED LIST changes: +ASPIR 8181 MG PO; +BYSTOLIC10 MG PO; +MINOCYCLINE HCL50 MG PO; +OSTEO BI-FLEX1 EAC2 PO; +STOOL SOFTENER50 MG PO; +TYLENOL325 MG PO; +VITAMIN B COMP1 EACH PO
--- OUTSIDE RECORDS SUMMARY | 2018-11-14 16:21 | XMS REPORT | Clinical Summary ---
Author Author [facility] Organization [facility] Address Unknown Phone Unavailable Care Team Providers Care Software Administrator Name Role Phone Winnie Ronquillo MD PCP [...] INFLUENZA VACCINE 06/19/2018 Results Not on fileafter 11/13/2017 Insurance Payer Benefit Subscriber ID Type Phone Address Plan / Group [employer] MED[employer]ARE [employer] xxxxxxxxx HMO [employer] TRE xxxxxxxx Commercial HEALTH & LIFE Advance Directives Patient has advance care planning documents on file. For more information, odell solares contact: Gary Whitmore [address] [place] [address]
--- OUTSIDE RECORDS SUMMARY | 2018-11-14 16:22 | XMS REPORT | Continuity of Care Document ---
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 [facility] DISLOCATED L HIP Active 09/11/2016 [facility] Stroke Resolved Problem 05/24/2018 [facility] Hyperlipidemia Resolved Problem 05/24/2018 [facility] Hypertension Resolved Problem 05/24/2018 [facility] BPH (<span ID="[id number]">Confirmed</span>) Active Problem 05/24/2018 [facility] OSTEOARTHRITIS OF HIP, UNSPECIFIED Active [facility] ILLNESS, UNSPECIFIED Active [facility] Medications Medication Details Route Status Patient Instructions Ordering Provider Order Date Source Atorvastatin Calcium (Lipitor) 20 Mg Tablet, 20 Mg Oral Daily Active 11/06/2018 [facility] Celecoxib (Celebrex*) 100 Mg Capsule, 200 Mg Oral Daily Active 11/06/2018 [facility] Dutasteride (Avodart) 0.5 Mg Capsule, 0.5 Mg Oral Daily Active 11/06/2018 [facility] Nebivolol Hcl (Bystolic) 2.5 Mg Tablet, 2.5 Mg Oral Daily Active 11/06/2018 [facility] Tamsulosin Hcl (Flomax*) 0.4 Mg Cap, 0.4 Mg Oral Daily Active 11/06/2018 [facility] Plavix 37.5 mg, 0.5 tab, Route: PO, Drug form: TAB, Daily, Dosing Weight 97.727, kg, Start date: 01/02/17 9:00:00 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, Duration: 30 day, Stop date: 01/31/17 9:00:00 CDTNotes: (Same As: Plavix) No Longer Active 01/02/2017 [facility] Docusate Sodium 100 MG Oral Capsule [Colace] 100 mg=1 cap, PO, BID, PRN Constipation, # 20 cap, 0 Refill(s) Active 01/01/2017 [facility] vancomycin 1.5 gm, 250 mL, Route: IV, Drug form: INJ, Q12H, Dosing Weight 97.727, kg, Start date: 01/01/17 10:30:00 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, Stop date: 01/31/17 10:00:00 CDTNotes: TIME CRITICAL MEDICATION Same as: Vancocin-NS (pre mixed) Infusion rate 2001 mg: infuse over 2.5 hours Inactive 01/01/2017 [facility] Lipitor 20 mg, 1 tab, Route: PO, Drug form: TAB, Daily, Dosing Weight 97.727, kg, Start date: 12/31/16 20:00:00 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, Duration: 30 day, Stop date: 01/29/17 20:00:00 CDTNotes: (Same As: Lipitor) No Longer Active 01/01/2017 [facility] fluconazole fluconazole, 400 mg / 2 tablets, Drug form: MISC, Route: PO, Q24H, 12/31/16 16:00:00 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, Duration: 30 day, Stop date: 01/29/17 16:00:00 CDT No Longer Active 12/31/2016 [facility] ferrous sulfate 325 mg, 1 tab, Route: PO, Drug form: TAB, ONCE, Start date: 12/31/16 11:05:00 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, Stop date: 12/31/16 11:05:00 CSTNotes: Give with food. iron elemental [id number] as ferrous sulfate Dose=___mg eleme ntal iron Inactive 12/31/2016 [facility] Vancomycin 1.25 gm, 250 mL, Route: IV, Drug form: INJ, Q12H, Dosing Weight 97.727, kg, Start date: 12/31/16 10:00:00 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, Duration: 30 day, Stop date: 01/29/17 22:00:00 CDTNotes: TIME CRITICAL MEDICATION Same as: Vancocin-NS (premixed) Infusion rate 2001 mg: infuse over 2.5 hours No Longer Active 12/31/2016 [facility] vancomycin + sodium chloride 0.9% INJ 250 mL 1,000 mg, Route: IVPB, [id number], Start date: 12/31/16 9:00:00 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, Duration: 30 day, Stop date: 01/29/17 21:00:00 CDTNotes: TIME CRITICAL MEDICATION (Same As: Vancocin) Infusion rate 2001 mg: infuse over 2.5 hours MEDICATION WASTE Product Size: 1000 mg Product Wasted: ___ mg Inactive 12/31/2016 [facility] isoniazid 150 MG / Rifampin 300 MG Oral Capsule [Rifamate] 2 cap, Route: PO, Dosing Weight 97.727, kg, Daily, Start date: 12/31/16 9:00:00 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, Duration: 30 day, Stop date: 01/29/17 9:00:00 CDT No Longer Active 12/31/2016 [facility] ferrous sulfate 325 mg, 1 tab, Route: PO, Drug form: ECTAB, Daily, Dosing Weight 97.727, kg, Start date: 12/31/16 9:00:00 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, Stop date: 01/29/17 9:00:00 CDTNotes: Give with food. "Do Not Crush" No Longer Active 12/31/2016 [facility] sodium chloride 0.9% 1000 ml INJ 1,000 mL 1,000 mL, Rate: 500 ml/hr, Infuse over: 2 hr, Route: IV, Dosing Weight 97.727 kg, Total Volume: 1,000, Start date: 12/31/16 7:55:00 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, Duration: 1 doses or times, Stop date: 12/31/16 9:54:00 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 Inactive 12/31/2016 [facility] Rifampin 600 mg, 4 cap, Route: PO, Drug form: CAP, [id number], Dosing Weight 97.727, kg, Start date: 12/30/16 20:00:00 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, Duration: 30 day, Stop date: 01/28/17 20:00:00 CDTNotes: (Same as: Rifadin) No Longer Active 12/31/2016 [facility] Vancomycin 1 gm, Route: IVPB, Drug form: INJ, [id number], Dosing Weight 97.727, kg, Start date: 12/30/16 19:00:00 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, Stop date: 01/29/17 21:00:00 CDTNotes: TIME CRITICAL MEDICATION (Same As: Vancocin) Infusion rate 2001 mg: infuse over 2.5 hours MEDICATION WASTE Product Size: 1000 mg Product Wasted: ___ mg No Longer Active 12/31/2016 [facility] Diflucan 400 mg, 8 tab, Route: PO, Drug form: TAB, Daily, Dosing Weight 97.727, kg, Start date: 12/30/16 16:00:00 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, Duration: 30 day, Stop date: 01/28/17 16:00:00 CDT, Pediatric DosingNotes: (Same as: Diflucan) No Longer Active 12/30/2016 [facility] Aspirin 325 MG Enteric Coated Tablet 325 mg, 1 tab, Route: PO, Drug form: ECTAB, BID, Dosing Weight 97.727, kg, Start date: 12/30/16 9:00:00 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, Duration: 30 day, Stop date: 01/28/17 17:00:00 CDTNotes: (Do Not Crush) Do not crush or chew. No Longer Active 12/30/2016 [facility] Zofran 4 mg, 2 mL, Route: IV, Drug form: INJ, Q8H, Dosing Weight 97.727, kg, Start date: 12/30/16 0:00:00 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, Duration: 3 doses or times, Stop date: 12/30/16 16:00:00 CSTNotes: (Same as: Zofran) MEDICATION WASTE Product Size: 4 mg Product Wasted: ___ mg Inactive 12/30/2016 [facility] Vancomycin 1,000 mg, Route: IVPB, Q12H, Dosing Weight 97.727, kg, Time Critical Medication, Start date: 12/29/16 22:00:00 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, Duration: 2 doses or times, Stop date: 12/30/16 10:00:00 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, Pharmacy to adjust dose for renal functionNotes: TIME CRITICAL MEDICATION (Same As: Vancocin) Infusion rate 2001 mg: infuse over 2.5 hours MEDICATION WASTE Product Size: 1000 mg Product Wasted: ___ mg No Longer Active 12/30/2016 [facility] rivaroxaban 10 mg, Route: PO, Q24H, Dosing Weight 97.727, kg, Start date: 12/29/16 18:33:00 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, Duration: 30 day, Stop date: 01/27/17 18:33:00 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 Inactive 12/30/2016 [facility] Saline Flush 0.9% 10 mL, Route: IVP, Drug Form: INJ, Dosing Weight 97.727, kg, Q8H, Start date: 12/29/16 16:00:00 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, Duration: 30 day, Stop date: 01/28/17 8:00:00 CDTNotes: preservative free. No Longer Active 12/29/2016 [facility] Lidocaine Hydrochloride 10 MG/ML Injectable Solution 50 mg, 5 mL, Route: INTRADERM, Drug Form: INJ, Dosing Weight 97.727, kg, ONCALL, Start date: 12/29/16 15:00:00 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, Duration: 1 day, Stop date: 12/30/16 14:59:00 CSTNotes: (Same as: Xylocaine) No Longer Active 12/29/2016 [facility] Cefazolin 2 gm, 100 mL, Route: IVPB, Drug form: INJ, Q6H, Dosing Weight 97.727, kg, Start date: 12/29/16 15:00:00 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, Duration: 6 doses or times, Stop date: 12/30/16 21:00:00 CSTNotes: Same as: Ancef Inactive 12/29/2016 [facility] Saline Flush 0.9% 10 mL, Route: IVP, Drug Form: INJ, Dosing Weight 97.727, kg, PRN, PRN Line Flush, Start date: 12/29/16 14:46:00 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, Duration: 30 day, Stop date: 01/28/17 15:45:00 CDTNotes: preservative free. No Longer Active 12/29/2016 [facility] metoprolol tartrate 12.5 mg, 0.5 tab, Route: PO, Drug form: TAB, Q12H, Dosing Weight 97.727, kg, Start date: 12/29/16 14:00:00 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, Duration: 30 day, Stop date: 01/28/17 9:00:00 CDTNotes: (Same as: Lopressor) No Longer Active 12/29/2016 [facility] Hydralazine 10 mg, 0.5 mL, Route: IVP, Drug form: INJ, Q20Min, Dosing Weight 97.727, kg, PRN Elevated BP, Start date: 12/29/16 12:42:00 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, Duration: 2 doses or times, Stop date: Limited # of timesNotes: (Same as: Apresoline) Push over 5 minutes Inactive 12/29/2016 [facility] Metoprolol 1 mg, 1 mL, Route: IVP, Drug form: INJ, Q5Min, Dosing Weight 97.727, kg, PRN Other -See Comment, Start date: 12/29/16 12:42:00 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, Duration: 5 doses or times, Stop date: Limited # of timesNotes: (Same as: Lopressor) Push over 2 minutes Inactive 12/29/2016 [facility] Labetalol 10 mg, 2 mL, Route: IVP, Drug form: INJ, Q5Min, Dosing Weight 97.727, kg, PRN Elevated BP, Start date: 12/29/16 12:42:00 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, Duration: 5 doses or times, Stop date: Limited # of times Inactive 12/29/2016 [facility] Morphine 2 mg, 0.2 mL, Route: IVP, Drug form: INJ, Q5Min, Dosing Weight 97.727, kg, PRN Pain Score 4-6, Start date: 12/29/16 12:42:00 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, Duration: 5 doses or times, Stop date: Limited # of timesNotes: (Same as:MORPhine Sulfate) Inactive 12/29/2016 [facility] Promethazine 6.25 mg, 0.25 [...] Reversal, Initial dose, Start date: 12/29/16 12:42:00 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, Duration: 30 day, Stop date: 01/28/17 13:41:00 C DTNotes: (Same as: Romazicon) Inactive 12/29/2016 [facility] Ephedrine 5 mg, 0.1 mL, Route: IVP, Drug form: INJ, Q5Min, Dosing Weight 97.727, kg, PRN Low Blood Pressure, Start date: 12/29/16 12:42:00 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, Duration: 30 day, Stop date: 01/28/17 13:41:00 CDTNotes: (Same as: ePHEDrine Sulfate) Inactive 12/29/2016 [facility] Naloxone 0.4 mg, 1 mL, Route: IVP, Drug form: INJ, Q2MIN, Dosing Weight 97.727, kg, PRN Narcotic Reversal, Start date: 12/29/16 12:42:00 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, Duration: 8 doses or times, Stop date: [...] Comment, For shivering, Start date: 12/29/16 12:42:00 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, Duration: 2 doses or times, Stop date: Limited # of timesNotes: (Same as: Demerol) "Use Precaution in Elderly, Seizure disorders, and Renal impairment" Inactive 12/29/2016 [facility] Ondansetron 4 mg, 2 mL, Route: IVP, Drug form: INJ, ONCE, Dosing Weight 97.727, kg, PRN Nausea & Vomiting, Start date: 12/29/16 12:42:00 CSTNotes: (Same as: Rosas) MEDICATION WASTE Product Size: 4 mg Product Wasted: ___ mg Inactive 12/29/2016 [facility] Hydromorphone 0.5 mg, 0.25 mL, Route: IVP, Drug form: INJ, Q5Min, Dosing Weight 97.727, kg, PRN Pain Score 7-10, Start date: 12/29/16 12:42:00 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, Duration: 4 doses or times, Stop date: Limited # of timesNotes: S ruben as Dilaudid Inactive 12/29/2016 [facility] Ondansetron 4 mg, 2 mL, Route: IVP, Drug form: INJ, Q6H, Dosing Weight 97.727, kg, PRN Nausea & Vomiting, Start date: 12/29/16 12:27:00 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, Duration: 30 day, Stop date: 01/28/17 12:26:00 CDTNotes: (Same as: Rosas) MEDICATION WASTE Product Size: 4 mg Product Wasted: ___ mg No Longer Active 12/29/2016 [facility] Acetaminophen 325 MG / Hydrocodone Bitartrate 5 MG Oral Tablet [Law[place] 5/325] 2 tab, Route: PO, Drug Form: TAB, Dosing Weight 97.727, kg, Q4H, PRN Pain Score 7-10, Start date: 12/29/16 12:27:00 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, Duration: 30 day, Stop date: 01/28/17 12:26:00 CDTNotes: (Same as: [place] 325/5) Do not exceed 4gm/day of acetaminophen. No Longer Active 12/29/2016 [facility] Tylenol 650 mg, 2 tab, Route: PO, Drug form: TAB, Q6H, Dosing Weight 97.727, kg, PRN Pain Score 1-3, Start date: 12/29/16 12:27:00 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, Duration: 30 day, Stop date: 01/28/17 12:26:00 CDTNotes: Do not exceed 4 gm/day. (Same as: Tylenol) No Longer Active 12/29/2016 [facility] Famotidine 20 mg, 1 tab, Route: PO, Drug form: TAB, BID, Dosing Weight 97.727, kg, PRN Indigestion, Start date: 12/29/16 12:27:00 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, Duration: 30 day, Stop date: 01/28/17 12:26:00 CDTNotes: (Same as: Pepcid) No Longer Active 12/29/2016 [facility] Acetaminophen 325 MG / Hydrocodone Bitartrate 10 MG Oral Tablet 1 tab, Route: PO, Drug Form: TAB, Dosing Weight 97.727, kg, Q4H, PRN Pain Score 4-6, Start date: 12/29/16 12:27:00 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, Duration: 30 day, Stop date: 01/28/17 12:26:00 CDTNotes: Do not exceed 4gm/day of acetaminophen. (Same as: [place] 325/10) No Longer Active 12/29/2016 [facility] Morphine 4 mg, 0.4 mL, Route: IVP, Drug form: INJ, Q4H, Dosing Weight 97.727, kg, PRN Pain Score 7-10, Start date: 12/29/16 12:27:00 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, Duration: 30 day, Stop date: 01/28/17 12:26:00 CDTNotes: (Same as:MORPhine Sulfate) No Longer Active 12/29/2016 [facility] POLYETHYLENE GLYCOL 3350 17 gm, 1 pkt, Route: PO, Drug form: PWDR, Daily, Dosing Weight 97.727, kg, PRN Constipation, Start date: 12/29/16 12:27:00 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, Duration: 30 day, Stop date: 01/28/17 12:26:00 CDTNotes: Dissolve in 8 oz of water or juice. (Same as: Miralax) No Longer Active 12/29/2016 [facility] Bisacodyl 10 mg, 1 supp, Route: VA, Drug form: SUPP, Daily, Dosing Weight 97.727, kg, PRN Constipation, Start date: 12/29/16 12:27:00 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, Duration: 30 day, Stop date: 01/28/17 12:26:00 CDTNotes: (Same As: Dulcolax, Bisco-Lax) No Longer Active 12/29/2016 [facility] sodium chloride 0.9% 1000 ml INJ 1,000 mL 1,000 mL, Rate: 85 ml/hr, Infuse over: 11.8 hr, Route: IV, Dosing Weight 97.727 kg, Total Volume: 1,000, When PO intake adequate, okay to saline lock, Start date: 12/29/16 12:27:00 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, Duration: 30 day, Stop date: 01/28/17 12:26:00 CDT No Longer Active 12/29/2016 [facility] Lactated Ringers 1,000 mL 1,000 mL, Rate: 50 ml/hr, Infuse over: 20 hr, Route: IV, Dosing Weight 97.727 kg, Total Volume: 1,000, Start date: 12/29/16 10:27:00 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, Duration: 30 day, Stop date: 01/28/17 10:26:00 CDT Inactive 12/29/2016 [facility] Ancef 2 gm, Route: IV, ONCE, Dosing Weight 97.727, kg, Start date: 12/29/16 10:26:00 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, Stop date: 12/29/16 10:26:00 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 Inactive 12/29/2016 [facility] Ancef 2 gm, 100 mL, Route: IV, Drug form: INJ, ONCE, Dosing Weight 97.727, kg, Start date: 12/29/16 10:25:00 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, Stop date: 12/29/16 10:25:00 CSTNotes: Same as Ancef Inactive 12/29/2016 [facility] Vancomycin 1.5 gm, 250 mL, Route: IV, Drug form: INJ, ONCE, Dosing Weight 97.727, kg, Start date: 12/29/16 10:25:00 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, Stop date: 12/29/16 10:25:00 CSTNotes: TIME CRITICAL MEDICATION Same as: Vancocin-NS (pre mixed) Infusion rate 2001 mg: infuse over 2.5 hours No Longer Active 12/29/2016 [facility] ropivacaine 100 mL, Route: InFILtration(local), Drug Form: INJ, ONCE, Start date: 12/29/16 8:22:00 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, Stop date: 12/29/16 8:22:00 CSTNotes: NOT FOR IV use Ropivacaine 5 mg/mL (49.25 mL) Epinephrine 1 m g/mL (0.5 mL) Clonidine 0.1 mg/mL (0.8 mL) Ketorolac 30 mg/mL (1 mL) Normal Saline 48.45 mL Inactive 12/29/2016 [facility] Flomax 0.4 mg, 1 cap, Route: PO, Drug form: CAP, Daily, Dosing Weight 97.727, kg, Start date: 12/28/16 9:00:00 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, Duration: 30 day, Stop date: 01/26/17 9:00:00 CSTNotes: (Same As: Flomax) "Do Not Crush" No Longer Active 12/28/2016 [facility] Bystolic 2.5 mg, 0.5 tab, Route: PO, Drug form: TAB, Daily, Dosing Weight 97.727, kg, Start date: 12/28/16 9:00:00 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, Duration: 30 day, Stop date: 01/26/17 9:00:00 CSTNotes: (same as: Bystolic) No Longer Active 12/28/2016 [facility] Vitamin B-100 1 tab, Route: PO, Drug Form: TAB, Dosing Weight 97.727, kg, Daily, Start date: 12/28/16 9:00:00 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, Duration: 30 day, Stop date: 01/26/17 9:00:00 CSTNotes: (Same As: B-Complex) No Longer Active 12/28/2016 [facility] Mobic 15 mg, 2 tab, Route: PO, Drug form: TAB, Daily, Dosing Weight 97.727, kg, Start date: 12/28/16 9:00:00 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, Duration: 30 day, Stop date: 01/26/17 9:00:00 CSTNotes: (Same as: Mobic) No Longer Active 12/28/2016 [facility] Lexapro 20 mg, 2 tab, Route: PO, Drug form: TAB, Daily, Dosing Weight 97.727, kg, Start date: 12/28/16 9:00:00 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, Duration: 30 day, Stop date: 01/26/17 9:00:00 CSTNotes: (Same as: Lexapro) No Longer Active 12/28/2016 [facility] Avodart 0.5 mg, 1 cap, Route: PO, Drug form: CAP, Daily, Dosing Weight 97.727, kg, Start date: 12/28/16 9:00:00 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, Stop date: 01/25/17 21:00:00 CSTNotes: Non-Formulary Drug. (Same As: Avodart) (Do Not Crush) No Longer Active 12/28/2016 [facility] Lipitor 20 mg, 1 tab, Route: PO, Drug form: TAB, Daily, Dosing Weight 97.727, kg, Start date: 12/28/16 9:00:00 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, Duration: 30 day, Stop date: 01/26/17 9:00:00 CSTNotes: (Same As: Lipitor) No Longer Active 12/28/2016 [facility] Wellbutrin XL 300 mg, 2 tab, Route: PO, Drug form: ERTAB, Q24H, Dosing Weight 97.727, kg, Start date: 12/28/16 9:00:00 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, Stop date: 01/26/17 9:00:00 CSTNotes: (Same as: Wellbutrin XL) "Do Not Crush" No Longer Active 12/28/2016 [facility] Docusate 100 mg, 1 cap, Route: PO, Drug form: CAP, BID, Dosing Weight 97.727, kg, Start date: 12/28/16 9:00:00 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, Duration: 30 day, Stop date: 01/26/17 17:00:00 CSTNotes: (Same as: Colace) (Do Not Crush) No Longer Active 12/28/2016 [facility] Acetaminophen 325 MG / Hydrocodone Bitartrate 5 MG Oral Tablet [[place] 5/325] 1 tab, Route: PO, Drug Form: TAB, Dosing Weight 97.727, kg, Q6H, PRN Pain Score 1-3, Start date: 12/27/16 23:05:00 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, Duration: 30 day, Stop date: 01/26/17 23:04:00 CSTNotes: (Same as: [place] 325/5) Do not exceed 4gm/day of acetaminophen. No Longer Active 12/28/2016 [facility] influenza virus vaccine, inactivated 0.5 mL, Route: IM, Drug Form: SUSP, ONCALL, Start date: 12/27/16 23:00:00 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, Duration: 1 doses or timesNotes: (Same as: Fluzone Quadrivalent, Fluarix Quadrivalent) For 3 years of age and older (0.5 mL IM) Shake well before use No Longer Active 12/28/2016 [facility] Ondansetron 4 MG Disintegrating Tablet 4 mg, 1 tab, Route: PO, Drug form: TABDIS, Q8H, Dosing Weight 97.727, kg, PRN Nausea, Start date: 12/27/16 22:27:00 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, Duration: 30 day, Stop date: 01/26/17 22:26:00 [...] day, # 14 tab, 0 Refill(s), Pharmacy: [facility] Active 09/12/2016 [facility] meloxicam 15 MG Oral Tablet [Mobic] 15 mg=1 tab, PO, Daily, # 30 tab, 0 Refill(s), Pharmacy: [facility] Active 09/12/2016 [facility] Aspirin 81 MG Chewable Tablet 81 mg=1 tab, PO, BID, # 56 tab, 0 Refill(s), Pharmacy: [facility] Active 09/12/2016 [facility] Budeprion XL [...] Duration: 30 day, Stop date: 10/11/16 9:00:00 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 No Longer Active 09/12/2016 [facility] [...] 1 cap, Route: PO, Drug form: CAP, [id number], Dosing Weight 95.455, kg, Start date: 09/11/16 [...] Duration: 30 day, Stop date: 10/11/16 19:38:00 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 Inactive 09/12/2016 [facility] POLYETHYLENE GLYCOL [...] Stop date: 10/11/16 19:38:00 CSTNotes: (Same as: Rosas) MEDICATION WASTE Product Size: 4 mg Product [...] not exceed 4gm/day of acetaminophen. (Same as: [place] 325/10) No Longer Active 09/12/2016 [facility] sodium chloride 0.9% 1000 ml INJ 1,000 mL 1,000 mL, Rate: 85 ml/hr, Infuse over: 11.8 hr, Route: IV, Dosing Weight 95.455 kg, Total Volume: 1,000, When PO intake adequate, okay to saline lock, Start date: 09/11/16 19:39:00 CDT, Duration: 30 day, Stop date: 10/11/16 19:38:00 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 No Longer Active 09/12/2016 [facility] Tylenol 650 mg, Route: PO, Drug form: TAB, Q6H, kg, PRN Pain Score 1-3, Start date: 09/11/16 19:39:00 CDT, Duration: 30 day, Stop date: 10/11/16 19:38:00 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 Inactive 09/12/2016 [facility] Famotidine 20 [...] Duration: 30 day, Stop date: 10/11/16 12:58:00 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 No Longer Active 09/11/2016 [facility] [...] as Ancef Inactive 09/11/2016 [facility] Acetaminophen (Tylenol*) 325 Mg Tablet As Needed for [facility] Aspirin (Aspir 81) 81 Mg Tablet.dr Daily for [facility] Bupropion Hcl (Wellbutrin Sr) 150 Mg Tablet.er Daily [facility] Celecoxib (Celebrex*) 100 Mg Capsule Daily for [facility] Clopidogrel Bisulfate (Plavix) 75 Mg Tablet Daily [facility] Docusate Sodium (Stool Softener) 50 Mg Capsule As Needed for [facility] Escitalopram Oxalate (Lexapro) 10 Mg Tablet Daily [facility] Glucosamine/D3/[place] (Osteo Bi-Flex Caplet) 1 Each Tablet Twice A Day for U Active [facility] Minocycline Hcl 50 Mg Capsule Twice A Day Active [facility] Nebivolol Hcl (Bystolic) 10 Mg Tablet Bedtime Active [facility] Vitamin B Complex 1 Each Capsule Daily for U Active [facility] Allergies, Adverse Reactions, Alerts Substance Category Reaction Severity Reaction type Status Date Reported Comments Source Immunizations Immunization Date Given Site Status Last Updated Comments Source Results Order Name Results Value Reference Range Date Interpretation Comments Source Blood leukocytes automated count (number/volume) 7.40 4.8 - 10.8 11/05/2018 [facility] Blood erythrocytes automated count (number/volume) 4.80 4.3 - 5.7 11/05/2018 [facility] Blood hemoglobin measurement (moles/volume) 14.5 14.0 - 18.0 11/05/2018 [facility] Automated blood hematocrit (volume fraction) 43.2 38.2 - 49.6 11/05/2018 [facility] Automated erythrocyte mean corpuscular volume 90.0 81 - 99 11/05/2018 [facility] Automated erythrocyte mean corpuscular hemoglobin (mass per erythrocyte) 30.2 28 - 32 11/05/2018 [facility] Automated erythrocyte mean corpuscular hemoglobin concentration measurement (mass/volume) 33.6 31 - 35 11/05/2018 [facility] RDW BldCo-Rto 15.7 11.7 - 14.4 11/05/2018 [facility] Automated blood platelet count (count/volume) 196 140 - 360 11/05/2018 [facility] Automated blood segmented neutrophil count as percentage of total leukocytes 61.7 38.7 - 80.0 11/05/2018 [facility] Automated blood lymphocyte count as percentage ot total leukocytes 25.0 18.0 - 39.1 11/05/2018 [facility] Automated blood monocyte count as percentage of total leukocytes 11.5 4.4 - 11.3 11/05/2018 [facility] Automated blood eosinophil count as percentage of total leukocytes 1.1 0.0 - 6.0 11/05/2018 [facility] Automated blood basophil count as percentage of total leukocytes 0.4 0.0 - 1.0 11/05/2018 [facility] IM GRANULOCYTES % 0.3 0.0 - 1.0 11/05/2018 [facility] Automated blood neutrophil count 4.6 2.1 - 6.9 11/05/2018 [facility] Blood lymphocytes count (number/volume) 1.9 1.0 - 3.2 11/05/2018 [facility] Blood monocytes automated count (number/volume) 0.9 0.2 - 0.8 11/05/2018 [facility] Automated blood eosinophil count 0.1 0.0 - 0.4 11/05/2018 [facility] Automated blood basophil count (count/volume) 0.0 0.0 - 0.1 11/05/2018 [facility] Absolute Immature Granulocyte (auto 0.02 0 - 0.1 11/05/2018 [facility] Serum or plasma sodium measurement (moles/volume) 137 136 - 145 11/05/2018 [facility] Serum or plasma potassium measurement (moles/volume) 4.4 3.5 - 5.1 11/05/2018 [facility] Serum or plasma chloride measurement (moles/volume) 104 98 - 107 11/05/2018 [facility] Serum or plasma carbon dioxide, total measurement (moles/volume) 24 22 - 29 11/05/2018 [facility] Serum or plasma anion gap 13.4 8 - 16 11/05/2018 [facility] Serum or plasma urea nitrogen measurement (mass/volume) 19 7 - 26 11/05/2018 [facility] Serum or plasma creatinine measurement (mass/volume) 1.08 0.72 - 1.25 11/05/2018 [facility] Serum or plasma urea nitrogen/creatinine mass ratio 18 6 - 25 11/05/2018 [facility] Estimated glomerular filtration rate (GFR) determination > 60 60 11/05/2018 [facility] Glucose measurement 73 74 - 118 11/05/2018 [facility] Serum or plasma calcium measurement (mass/volume) 9.6 8.4 - 10.2 11/05/2018 [facility] Serum or plasma total bilirubin measurement (mass/volume) 0.6 0.2 - 1.2 11/05/2018 [facility] Aspartate Amino Transf (AST/SGOT) 20 5 - 34 11/05/2018 [facility] Serum or plasma alanine aminotransferase measurement (enzymatic activity/volume) 20 0 - 55 11/05/2018 [facility] Serum or plasma protein measurement (mass/volume) 7.2 6.5 - 8.1 11/05/2018 [facility] Serum or plasma albumin measurement (mass/volume) 3.8 3.5 - 5.0 11/05/2018 [facility] Plasma globulin measurement (mass/volume) 3.4 2.3 - 3.5 11/05/2018 [facility] Serum or plasma albumin/globulin mass ratio 1.1 0.8 - 2.0 11/05/2018 [facility] Serum or plasma alkaline phosphatase measurement (enzymatic activity/volume) 68 40 - 150 11/05/2018 [facility] Serum or plasma triglyceride measurement (mass/volume) 86 0 - 149 11/05/2018 [facility] Serum or plasma cholesterol measurement (mass/volume) 162 0 - 199 11/05/2018 [facility] Serum or plasma cholesterol in LDL measurement (mass/volume) 92 60 - 130 11/05/2018 [facility] Serum or plasma cholesterol in HDL measurement (mass/volume) 53 40 - 60 11/05/2018 [facility] Serum or plasma total cholesterol/cholesterol in HDL mass ratio 3.1 3.9 - 4.7 11/05/2018 [facility] TOXICOLOGY Vanco Tr TND 01/03/17 01/01/2017 Ortho [...] CHEST 1 VIEW DATE: 12/29/2016 2:42 PM 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 INDICATION: PICC Line Placement COMPARISON: None TECHNIQUE: [...] Myles Bashir MD 12/29/16 15:34 FINAL REPORT [facility] Pelvis AP DX Pelvis AP DX EXAM: XR PELVIS 1 VIEW DATE: 12/29/2016 12:27 PM 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 INDICATION: Joint deformities COMPARISON: 12/27/2016 TECHNIQUE: A [...] Myles Bashir MD 12/29/16 13:50 FINAL REPORT [facility] CHEM PANEL Phosphorus 3.4 mg/dL 2.5 - [...] HIP 2 VIEW DATE: 12/27/2016 6:04 PM 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 INDICATION: Pain Post Trauma COMPARISON: Radiograph performed [...] Colin Gracia MD 12/28/16 09:15 FINAL REPORT [facility] Hip 1 view DX Hip 1 view DX EXAM: XR LEFT HIP 1 VIEW DATE: 12/27/2016 4:54 PM 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 INDICATION: Pain Post Trauma COMPARISON: Radiograph Performed same day TECHNIQUE: A single crosstable view of the hip DISCUSSION: Crosstable image shows 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 No fracture identified. 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 INDICATION: Pain Post Trauma COMPARISON: Radiograph dated [...] Colin Gracia MD 12/28/16 09:13 FINAL REPORT [facility] ELECTROLYTES Chloride Lvl 105 meq/L 95 - [...] Baylee Obrien MD 09/12/16 08:36 FINAL REPORT [facility] BLOOD BANK RESULTS ABO/Rh A POS 09/11/2016 [facility] BLOOD BANK RESULTS Antibody Scrn Negative (09/11/16 11:20 AM) 09/11/2016 [facility] Vital Signs Vital Sign Value Date Comments Source Systolic (mm Hg) 135 01/02/2017 [facility] Diastolic (mm Hg) 84 01/02/2017 [facility] Respitory Rate 18 01/02/2017 [facility] Temperature Oral (F) 98.5 F 01/02/2017 [facility] Heart Rate 78 01/02/2017 [facility] Systolic (mm Hg) 128 01/01/2017 [facility] Diastolic (mm Hg) 73 01/01/2017 [facility] Heart Rate 75 01/01/2017 [facility] Temperature Oral (F) 97.2 F 01/01/2017 [facility] Respitory Rate 18 01/01/2017 [facility] Systolic (mm Hg) 132 01/01/2017 [facility] Diastolic (mm Hg) 77 01/01/2017 [facility] Temperature Oral (F) 98.7 F 01/01/2017 [facility] Heart Rate 83 01/01/2017 [facility] Respitory Rate 18 01/01/2017 [facility] Respitory Rate 15 12/28/2016 [facility] Systolic (mm Hg) 146 12/28/2016 [facility] Diastolic (mm Hg) 88 12/28/2016 [facility] Respitory Rate 18 12/28/2016 [facility] Systolic (mm Hg) 153 12/28/2016 [facility] Diastolic (mm Hg) 85 12/28/2016 [facility] Systolic (mm Hg) 145 12/28/2016 [facility] Diastolic (mm Hg) 90 12/28/2016 [facility] Respitory Rate 15 12/28/2016 [facility] Weight 97.727 12/28/2016 [facility] BMI Calculated 28.43 12/28/2016 [facility] Height 185.42 cm 12/28/2016 [facility] Weight 97.727 12/27/2016 [facility] Height 185.42 cm 12/27/2016 [facility] BMI Calculated 28.43 12/27/2016 [facility] BMI Calculated 28.43 12/27/2016 [facility] Height 185.42 cm 12/27/2016 [facility] Weight 97.727 12/27/2016 Ortho [...] Provider ADM Date DC Date Status Source [facility] Spine [facility] Inpatient [id number] Chester Carlin 09/11/2016 09/13/2016 [facility] Spine [facility] Outpatient [id number] Chester Carlin 12/27/2016 12/28/2016 [facility] Spine [facility] Inpatient [id number] Chester Carlin 12/28/2016 01/02/2017 [facility] OP Therapy Patients [id number] Giovanni Diane 04/22/2018 05/22/2018 [facility] Outpatient [id number] XIMENA MARRERO 08/26/2018 Active [facility] [id number] XIMENA MARRERO MD 09/11/2018 [facility] Outpatient [id number] XIMENA MARRERO 10/07/2018 Active [facility] Inpatient (obs) [id number] ALEXEI QUINN MD 11/06/2018 11/07/2018 [facility] Procedures Procedure Code Date Perfomer Comments Source Magnetic resonance imaging of brain without contrast [id number] 09/11/2018 [facility] Biceps tunnel [facility]ine[facility] [id number] [facility] [id number] [facility] Fusion of joint of cervical spine with internal fixation by anterior approach 201644654 [facility] Hip joint operations<sup>1</sup> [id number] 10 years ago [facility] Hip replacement 817712680 [facility] Laminectomy<sup>2</sup> 033380409 X 3 [facility] Shoulder joint operations [id number] [facility] Biceps tunnel cineplasty 291770488 [facility] Ear operations 20280073 [facility] Fusion of joint of cervical spine with internal fixation by anterior approach 677385538 [facility] Hip joint operations<sup>1</sup> 36700385 10 years ago [facility] Hip replacement 086685993 [facility] Laminectomy<sup>2</sup> 732922499 X 3 [facility] Shoulder joint operations [id number] [facility]
--- NOTE | 2018-11-14 16:30 | NUR ---
RECEIVED TO RM AAOX3 NO DISTRESS NOTED, ORIENTED TO RM, UPDATED ON POC VOICED UNDERSTANDING, L FA 20G NO SS OF INFILTRATION NOTED, DSG TO LEFT CHEST WALL INTACT, TELE 2464 SR, NO OTHER CO VOICED CALL LIGHT IN REACH WILL CONTINUE TO MONITOR
[2018-11-14 17:34] VITALS: BP 149/81
[2018-11-14] MEDS ORDERED: ACETAMINOPHEN 325 MG TAB PO PRN (18:00)
[2018-11-14 18:14] LABS: BASOPHILS % 0.5 % (0.0-1.0); EOSINOPHILS # (AUTO) 0.2 (0.0-0.4); EOSINOPHILS % 3.1 % (0.0-6.0); HEMATOCRIT 41.1 % (38.2-49.6); HEMOGLOBIN 13.7 g/dL (14.0-18.0); LYMPHOCYTES # (AUTO) 1.8 (1.0-3.2); LYMPHOCYTES % 30.7 % (18.0-39.1); MEAN CORPUSCULAR HGB CONC 33.3 g/dL (31-35); MEAN CORPUSCULAR VOLUME 90.1 fL (81-99); MONOCYTES # (AUTO) 0.5 (0.2-0.8); MONOCYTES % 9.2 % (4.4-11.3); NEUTROPHILS # (AUTO) 3.2 (2.1-6.9); NEUTROPHILS % 56.3 % (38.7-80.0); PLATELET COUNT 162 x10e3/uL (140-360); RED BLOOD COUNT 4.56 x10e6/uL (4.3-5.7); RED CELL DISTRIBUTION WIDTH 15.7 % (11.7-14.4)
[2018-11-14 18:37] LABS: ANION GAP 15.1 mmol/L (8-16); BLOOD UREA NITROGEN 14 mg/dL (7-26); BUN/CREATININE RATIO 14 (6-25); CALCIUM 9.2 mg/dL (8.4-10.2); CARBON DIOXIDE 20 mmol/L (22-29); CHLORIDE 101 mmol/L (98-107); CREATININE, SERUM 1.01 mg/dL (0.72-1.25); EST GLOMERULAR FILTRATION RATE > 60 ML/MIN (60-); GLUCOSE 103 mg/dL (74-118); POTASSIUM 4.1 mmol/L (3.5-5.1); SODIUM 132 mmol/L (136-145)
--- NOTE | 2018-11-14 19:05 | NUR ---
REPORT RECEIVED FROM OFF GOING NURSE, PT RESTING IN BED ALERT AND ORIENTED, NO DISTRESS NOTED, DENIES NEEDS, AT BEDSIDE, TELEMETRY NOTED,CALL LIGHT IN REACH, INSTRUCTED TO CALL WITH NEEDS
[2018-11-14 20:00] VITALS: BP 140/63
--- NOTE | 2018-11-14 20:32 | Diagnostic Imaging Report ---
EXAMINATION: CHEST 2 VIEWS INDICATION: ^PACEMAKER MALFUNCTION COMPARISON: Chest x-ray 11/06/2018. FINDINGS: PA and lateral views TUBES and LINES: Left-sided pacemaker with 2 intact wires. LUNGS: Lungs are well inflated. There are bibasilar atelectasis. There is no evidence of pneumonia or pulmonary edema. PLEURA: No pleural effusion or pneumothorax. HEART AND MEDIASTINUM: The cardiomediastinal silhouette is unremarkable. There are atherosclerotic calcifications within the aorta. BONES AND SOFT TISSUES: Anterior cervical plate fusion device. Partially visualized left humeral arthroplasty. No acute osseous lesion. Soft tissues are unremarkable. UPPER ABDOMEN: No free air under the diaphragm. IMPRESSION: No acute thoracic abnormality. Signed by: Dr. Ion Melendez M.D. on 11/14/2018 8:29 PM
[2018-11-14] MEDS: NEBIVOLOL 10 MG TAB PO SCH (21:00)
[2018-11-14] MEDS: ASPIRIN 81 MG CHEW TAB PO SCH (21:00)
[2018-11-14] MEDS: MINOCYCLINE HCL 50 MG CAP PO SCH (21:31)
[2018-11-15] VITALS (7 sets, daily range): BP systolic 119–132; BP diastolic 65–81
--- NOTE | 2018-11-15 05:17 | NUR ---
PT RESTING IN BED WITH EYES CLOSED,NO DISTRESS NOTED, TELEMETRY NOTED, CALL LIGHT IN REACH
--- NOTE | 2018-11-15 07:00 | NUR ---
SHIFT REPORT RECEIVED FROM NIGHT RN. PT DENIES NEEDS AT THIS TIME.
[2018-11-15] MEDS: ESCITALOPRAM OXALATE 10 MG TAB PO SCH (09:00)
[2018-11-15] MEDS: BUPROPION HCL SR 150 MG TAB PO SCH (09:00)
[2018-11-15] MEDS: MINOCYCLINE HCL 50 MG CAP PO SCH ×2 (09:00→21:00)
[2018-11-15] MEDS: CELECOXIB 100 MG CAP PO SCH (09:00)
[2018-11-15] MEDS: CLOPIDOGREL BISULFATE 75 MG TAB PO SCH (09:00)
--- NOTE | 2018-11-15 15:20 | NUR ---
Visit made by the Spiritual Care Department Pastoral Visitor, Billie Lobo. PV provided pastoral presence, hospitality, and supportive listening. Pastoral Visitor informed pt/family of the scope of [employer] and availability. NILESH LAGUNA Preprint Analyst Spiritual Care Department O: [phone] Pager: [phone] ([phone] number calling from)
[2018-11-15] MEDS ORDERED: FENTANYL CITRATE/PF 100MCG/2 ML INJ ONE (17:25)
[2018-11-15] MEDS ORDERED: LIDOCAINE 1% W/EPINEPHRINE 20 ML VIAL ONE (17:25)
[2018-11-15] MEDS ORDERED: MIDAZOLAM HCL 2 MG/2 ML VIAL ONE ×2 (17:25→18:29)
[2018-11-15] MEDS ORDERED: SODIUM CHLORIDE 0.9% 500ML 500 ML ONE (17:26)
[2018-11-15] MEDS ORDERED: SODIUM CHLORIDE 0.9% 1000ML 2,000 ML ONE (17:26)
[2018-11-15] MEDS ORDERED: BACITRACIN 50,000 UNIT VIAL ONE (17:26)
--- NOTE | 2018-11-15 17:38 | NUR ---
PT OFF THE UNIT TO DIRECTOR OF EARLY CHILDHOOD.
[2018-11-15] MEDS ORDERED: SODIUM CHLORIDE 0.9% 1000ML 1,000 ML ONE (17:45)
[2018-11-15] MEDS ORDERED: VANCOMYCIN 1GM/NS 250 ML 250 ML ONE (17:45)
[2018-11-15] MEDS ORDERED: LIDOCAINE HCL 2% LOCAL 20 ML VIAL ONE (18:05)
--- NOTE | 2018-11-15 18:23 | History and Physical ---
REASON FOR ADMISSION: Dislodged lead. HISTORY OF PRESENT ILLNESS: This is a 77-year-old man with a history of sinus pauses, status post permanent pacemaker implantation, hypertension, hyperlipidemia, prior cerebrovascular accident, nonobstructive coronary artery disease, and carotid artery stenosis who presents electively after being found to have atypical palpations and his pacemaker interrogation noted possible dislodged right ventricular lead. He is currently hemodynamically stable and asymptomatic. PAST MEDICAL HISTORY: As stated above. PAST SURGICAL HISTORY: Permanent pacemaker implantation, cardiac catheterization. PAST FAMILY HISTORY: No premature coronary artery disease or sudden cardiac . SOCIAL HISTORY: No current illicit drug use, alcohol use, or tobacco use. ALLERGIES: NO KNOWN DRUG ALLERGIES. MEDICATIONS: See medication reconciliation form. PHYSICAL EXAMINATION VITAL SIGNS: Temperature is 97.5, heart rate is 60, respirations are 18, blood pressure is 130/77, oxygen saturation 96% on room air. GENERAL: A well-appearing, well-built, in no apparent distress, alert and oriented x3. HEENT: Head is normocephalic, atraumatic. Eyes; extraocular muscles intact. Conjunctivae are clear. NECK: No JVD. No bruits. CARDIOVASCULAR: Regular rate and rhythm. LUNGS: Clear to auscultation. ABDOMEN: Soft, nontender, nondistended. EXTREMITIES: No edema. VASCULAR: 2+ pulses. SKIN: Warm, dry and intact. NEUROLOGICAL: No focal deficits noted. CARDIOVASCULAR MEDICATIONS: Reviewed. IMAGING: Reviewed. LABORATORY DATA: Reviewed. IMPRESSION 1. Permanent pacemaker with dislodged right ventricular lead. 2. History of sinus pauses. 3. Hypertension. 4. Hyperlipidemia. 5. Nonobstructive coronary artery disease. 6. Carotid artery stenosis. RECOMMENDATIONS: Patient will undergo lead revision with electrophysiology. Continue all current cardiovascular medications. No need for additional testing at this point in time. Job#: [id number] JOEY
[2018-11-15] MEDS: ASPIRIN 81 MG CHEW TAB PO SCH (19:18)
--- NOTE | 2018-11-15 19:27 | NUR ---
PT ARRIVING TO UNIT FROM [facility]
--- NOTE | 2018-11-15 19:28 | NUR ---
PT SITTING UP IN BED WITH LEFT ARM IN SLING, TELEMETRY BEING PLACED, AT BEDSIDE, NO DISTRESS NOTED, PT DENIES NEEDS, IV INFUSING PER ORDER, BED LOCKED AND LOW, CALL LIGHT IN REACH, INSTRUCTED TO CALL WITH NEEDS
[2018-11-15] MEDS: NEBIVOLOL 10 MG TAB PO SCH (20:58)
[2018-11-16] VITALS: BP 131/79
[2018-11-16 04:00] VITALS: BP 117/72
--- NOTE | 2018-11-16 05:39 | NUR ---
PT RESTING IN BED ALERT AND ORIENTED, NO DISTRESS NOTED, DENIES NEEDS, CALL LIGHT IN REACH, LEFT ARM IN SLING WITH NO COMPLICATIONS NOTED, INSTRUCTED TO CALL WITH NEEDS, TELEMETRY NOTED
--- NOTE | 2018-11-16 07:00 | NUR ---
SHIFT REPORT RECEIVED FROM NIGHT RN. PT DENIES NEEDS AT THIS TIME.
[2018-11-16 08:00] VITALS: BP 117/72
[2018-11-16 08:37] VITALS: BP 155/73
[2018-11-16] MEDS: ESCITALOPRAM OXALATE 10 MG TAB PO SCH (09:06)
[2018-11-16] MEDS: CELECOXIB 100 MG CAP PO SCH (09:06)
[2018-11-16] MEDS: BUPROPION HCL SR 150 MG TAB PO SCH (09:07)
[2018-11-16] MEDS: MINOCYCLINE HCL 50 MG CAP PO SCH (09:07)
[2018-11-16] MEDS: CLOPIDOGREL BISULFATE 75 MG TAB PO SCH (09:07)
[2018-11-16 12:53] VITALS: BP 127/68
--- NOTE | 2018-11-16 13:00 | Operative Report ---
DATE OF PROCEDURE: November 15, 2018 PREPROCEDURE DIAGNOSES 1. Right ventricular lead dislodgement. 2. Recent dual pacemaker placement. POSTPROCEDURE DIAGNOSES 1. Right ventricular lead dislodgement. 2. Recent dual pacemaker placement. ESTIMATED BLOOD LOSS: 5 mL. PROCEDURES PERFORMED 1. Right ventricular lead replacement/revision. 2. Moderate sedation. Moderate conscious sedation was provided under my direct supervision by a sedation-trained nurse. Sedation approximate time 30 minutes, Versed and Fentanyl. There were no complications. See sedation form for details. DESCRIPTION OF PROCEDURE: After informed consent was obtained, patient was brought to the electrophysiology laboratory in a fasting nonsedated state. Area over his chest was prepped and draped in the usual sterile fashion. Moderate sedation and prophylactic antibiotic were given. Lidocaine 1% was used as a local anesthetic and a 3-cm skin incision was made in the left subclavicular area over the previous device. Electrocautery and dissection were used to reach the previous device. This device was freed out of the pocket. We then proceeded with removing the right ventricular lead and stylet was advanced. A screw was retracted. The lead was removed without any issues. Then, vascular access was obtained x1 in the left axillary vein using modified Seldinger technique. The new right ventricular lead was advanced to the RV apex, R-wave 12, pacing 0.5 at 0.4, impedance 800. Sheath was removed from the body. Lead was secured to fascia using Ethibond. Pocket was irrigated with antibiotic solution using the pulse molded candles wicker. Hemostasis was meticulous. The lead was connected to the device and the pacemaker system placed in the pocket. Incision was closed using Vicryl and Dermabond. Patient tolerated the procedure well. Procedure was deemed complete. SUMMARY OF HARDWARE IMPLANTED 1. The new pacemaker lead is [place] [employer], [id number], [id number]. 2. The previous pacemaker and right atrial leads were normal functioning used to the new system, [place] [employer] IMPRESSION: Successful right ventricular lead replacement, removal of the previous dislodged right ventricular lead, and placement of a new passive lead. PLAN 1. Routine postop monitoring on telemetry bed. 2. Chest x-ray. 3. Follow up in 2 weeks. Job#: [id number] DENNY
== END 2018-11-16 15:00 | disposition home or self-care (01) ==
LOC: MED/SURG 16:15
PROVIDERS: ADMIT Internal Medicine Interventional Cardiology; ATTEND Internal Medicine Interventional Cardiology
DX: T82.128A Displacement of other cardiac electronic device, initial encounter (principal); I10 Essential (primary) hypertension; E78.5 Hyperlipidemia, unspecified; I25.10 Atherosclerotic heart disease of native coronary artery without angina pectoris; I65.29 Occlusion and stenosis of unspecified carotid artery; Z86.73 Personal history of transient ischemic attack (TIA), and cerebral infarction without residual deficits; R00.2 Palpitations
CPT/HCPCS: 33216; 33234; 36415; 71046; 80048; 85025; C1898; G0378 ×3; J2001; J2250; J3370; J7030; J7040

== ENCOUNTER → 2019-04-09 | Outpatient (CLI) | payer MEDICARE ==
[~2019-04-09] MED LIST changes: +IOPAMIDOL 370 MG/ML 200 ML INFUS..BTL INJ ONE; +SODIUM CHLORIDE 0.9% 100 ML 100 ML ONE
[2019-04-09 16:53] LABS: ANION GAP 11.5 mmol/L (8-16); BLOOD UREA NITROGEN 16 mg/dL (7-26); BUN/CREATININE RATIO 15 (6-25); CALCIUM 10.2 mg/dL (8.4-10.2); CARBON DIOXIDE 22 mmol/L (22-29); CHLORIDE 99 mmol/L (98-107); CREATININE, SERUM 1.05 mg/dL (0.72-1.25); EST GLOMERULAR FILTRATION RATE > 60 ML/MIN (60-); GLUCOSE 90 mg/dL (74-118); POTASSIUM 4.5 mmol/L (3.5-5.1); SODIUM 128 mmol/L (136-145)
--- NOTE | 2019-04-10 09:00 | Diagnostic Imaging Report ---
EXAM: CTA OF THE ABDOMINAL AORTA INDICATION: AAA COMPARISON: None TECHNIQUE: Multi-detector CT technology was employed. CTA of the abdomen was performed after the administration of IV contrast. Technique modification was utilized to maintain the lowest dose possible to the patient. IV CONTRAST: 100 mL of Isovue-370 ORAL CONTRAST: None COMPLICATIONS: None RADIATION DOSE: Total DLP: 575.28 mGy*cm Estimated effective dose: (DLP x 0.015 x size factor) mSv CTDIvol has been reviewed. It is below the limits set by the Radiation Protocol Committee (RPC). For optimization of anatomic evaluation, multiplanar reconstruction, maximum intensity projections, and advanced 3-D off-line postprocessing were performed on a dedicated stand-alone workstation under the direct supervision of the interpreting physician. FINDINGS: Potential study limitations: None. VASCULAR WITH ADVANCED 3-D OFF-LINE POSTPROCESSING: There is no acute aortic pathology. There is a saccular infrarenal abdominal aortic aneurysm with 2 saccules each measuring 3.5 cm in maximal AP dimension. No evidence of dissection. Aortic plaques: Minimal calcified atherosclerotic plaques at the origin of the celiac, SMA and CHANA. The celiac, SMA and CHANA are all patent. Single renal arteries bilaterally. The common iliac arteries are normal. LOWER CHEST: Pacer leads are present. There is a moderate-sized hiatal hernia. ABDOMEN: The liver, gallbladder, spleen and pancreas appear normal. The adrenal glands appear normal. Both kidneys are normal in size, shape and density. Right lower pole renal cyst measures 1.6 cm. There is no abnormal mass or hydronephrosis. The bowel appears unremarkable. The appendix is not visualized. BONES: Extensive degenerative disease of the spine. IMPRESSION: 1. Infrarenal saccular abdominal aortic aneurysm as described above. 2. Hiatal hernia and a right lower pole renal cyst. Signed by: Dr. Raleigh Gil DO on 04/10/2019 8:57 AM
== END ==
LOC: CT 13:48
PROVIDERS: ATTEND Internal Medicine Interventional Cardiology
DX: I71.4 Abdominal aortic aneurysm, without rupture (principal)
CPT/HCPCS: 36415; 74175; 80048

== ENCOUNTER 2019-04-10 20:44 | Emergency (ER) | payer MEDICARE ==
[~2019-04-10] VITALS: Ht 182.9 cm; Wt 100.2 kg
[~2019-04-10 20:44] MED LIST changes: -IOPAMIDOL 370 MG/ML 200 ML INFUS..BTL INJ ONE; -SODIUM CHLORIDE 0.9% 100 ML 100 ML ONE
--- OUTSIDE RECORDS SUMMARY | 2019-04-10 20:47 | XMS REPORT | Clinical Summary ---
Author Author [facility] Organization [facility] Address Unknown Phone Unavailable Care Team Providers Care Movie Critic Name Role Phone Winnie Ronquillo MD PCP [...] Health Maintenance Due Date Last Done Comments SHINGLES VACCINES (#1) 1992 65+ PNEUMOCOCCAL VACCINE 2007 (1 of 2 - PCV13) PNEUMOCOCCAL 2007 POLYSACCHARIDE VACCINE AGE 65 AND OVER INFLUENZA VACCINE 06/19/2019 Results Not on fileafter 04/09/2018 Insurance Type Payer Benefit Subscriber ID Effective Phone Address Plan / Dates Group HMO [employer] MEDICARE [employer] xxxxxxxxx 2016-P MEDICARE resent HMO/PPO Commercial TRE HE[employer] LIFE TRE xxxxxxxx 2016-P HEALTH & resent LIFE Advance Directives Patient has advance care planning documents on file. For more information, odell solares contact: Gary Whitmore [address] [place] [address]
--- OUTSIDE RECORDS SUMMARY | 2019-04-10 20:48 | XMS REPORT | Summary of Care ---
Author Author [facility] Organization [facility] Address Unknown Phone Unavailable Encounter TICO Dubois(FIN) [id number] Date(s): 05/27/18 - 06/25/18 [facility] Encounter Diagnosis Pain in left hip (Final) - 07/01/18 Trochanteric bursitis, left hip (Final) - Aftercare following joint replacement surgery (Final) - Presence of left artificial hip joint (Final) - Other abnormalities of gait and mobility (Final) - Weakness (Final) - Discharge Disposition: Home or Self Care Attending Physician: Giovanni Diane (referral) Vital Signs No data available for this section Problem List Condition Effective Dates Status Health Status Informant Stroke(Confirmed) Resolved Fatigue(Confirmed) Active History of Active stroke(Confirmed) Hyperlipidemia(Confi Resolved rmed) Hypertension(Confirm Resolved ed) Arterial ischemic Active stroke, multifocal, anterior circulation, acute(Confirmed) Mild cognitive Active impairment(Confirmed ) MRSA(Confirmed)1, 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 Allergies, Adverse Reactions, Alerts Substance Reaction Severity Status NKDA Active Medications No data available for this section Results No data available for this section Immunizations No data available for this section Procedures Procedure Date Related Diagnosis Body Site Status Biceps tunnel cineplasty Completed Cataract surgery Completed Ear operations Completed Fusion of joint of cervical spine with Completed internal fixation by anterior approach Hip joint operations1 Completed Hip replacement Completed Laminectomy2 Completed Shoulder joint operations Completed 110 years ago 2X 3 Social History Social History Type Response Substance Abuse Use: None. Employment/School Status: Retired. Alcohol Current, Type Beer. Frequency: 1-2 times per week. Alcohol use interferes with work or home: No. Drinks more than intended: No. Others hurt by drinking: No. Smoking Status Former smoker; Exposure to Tobacco Smoke None; Cigarette Smoking Last 365 Days No; Reg Smoking Cessation Counseling Yes; Tobacco use per day: 0; entered on: 08/26/18 Assessment and Plan No data available for this section
--- OUTSIDE RECORDS SUMMARY | 2019-04-10 20:48 | XMS REPORT | Summary of Care ---
Author Author [facility] Organization [facility] Address Unknown Phone Unavailable Encounter TICO Dubois(SCAR) [id number] Date(s): 08/26/18 - 08/26/18 [facility] [address] [place] [address]- [phone] Discharge Disposition: Home or Self Care Attending Physician: Matteo Merida MD Referring Physician: Deepak Durán MD Vital Signs Most recent to 1 oldest [Reference Range]: Height 185.42 cm (08/26/18 1:49 PM) Blood Pressure 110/74 mmHg [90-140/60-90 mmHg] (08/26/18 1:49 PM) Peripheral Pulse 61 bpm Rate [60-100 bpm] (08/26/18 1:49 PM) Weight 103.352 kg (08/26/18 1:49 PM) Body Mass Index 30.06 m2 (08/26/18 1:49 PM) Problem List Condition Effective Dates Status Health [...] by Discern Expert. Allergies, Adverse Reactions, Alerts No Known Medication Allergies Medications Vitamin D3 50,000 intl units oral capsule 50,000 IntlUnit=1 cap, PO, Daily, # 12 cap, 0 Refill(s) Start Date: 08/26/18 Stop Date: 11/18/18 Status: Ordered Wellbutrin XL 300 mg/24 hours oral tablet, extended release 300 mg=1 tab, PO, Q24H, 0 Refill(s) Start Date: 08/26/18 Status: Ordered Results No data available for this section [...]
--- OUTSIDE RECORDS SUMMARY | 2019-04-10 20:48 | XMS REPORT | Summary of Care ---
Author Author [facility] Organization [facility] Address Unknown Phone Unavailable Encounter HQ Prudence_marcia(FIN) [id number] Date(s): 08/15/18 - 08/16/18 [facility] [address] [place] [address]- [phone] Vital Signs No data available for this [...]
--- OUTSIDE RECORDS SUMMARY | 2019-04-10 20:48 | XMS REPORT | Summary of Care ---
Author Author [facility] Organization [facility] Address Unknown Phone Unavailable Encounter TICO Dubois(SCAR) [id number] Date(s): 08/26/18 - 08/26/18 [facility] [address] [place] [address]- [phone] Discharge Disposition: Home or Self Care Attending [...]
--- OUTSIDE RECORDS SUMMARY | 2019-04-10 20:48 | XMS REPORT | Summary of Care ---
Author Author [facility] Organization [facility] Address Unknown Phone Unavailable Encounter TICO Dubois(SCAR) [id number] Date(s): 08/26/18 - 08/26/18 [facility] [address] [place] [address]- [phone] Discharge Disposition: Home or Self Care Attending [...]
--- OUTSIDE RECORDS SUMMARY | 2019-04-10 20:48 | XMS REPORT | Summary of Care ---
Author Author [facility] Organization [facility] Address Unknown Phone Unavailable Encounter HQ Akuantr_aliraeann(FIN) [id number] Date(s): 08/19/18 - 08/20/18 [facility] [address] [place] [address]- [phone] Vital Signs No data available for this [...]
--- OUTSIDE RECORDS SUMMARY | 2019-04-10 20:48 | XMS REPORT | Summary of Care ---
Author Author [facility] Organization [facility] Address Unknown Phone Unavailable Encounter HQ Prudence_marcia(FIN) [id number] Date(s): 09/04/18 - 09/05/18 [facility] [address] [place] [address]- Vital Signs No data available for this [...] Reactions, Alerts No Known Medication Allergies Medications No data available for this section [...]
--- OUTSIDE RECORDS SUMMARY | 2019-04-10 20:48 | XMS REPORT | Continuity of Care Document ---
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 [facility] DISLOCATED L HIP Active 09/11/2016 [facility] Stroke Resolved Problem 03/25/2019 [facility] Fatigue Active Problem 03/25/2019 [facility] History of stroke Active Problem 03/25/2019 [facility] Hyperlipidemia Resolved Problem 03/25/2019 [facility] Hypertension Resolved Problem 03/25/2019 [facility] Arterial ischemic stroke, multifocal, anterior circulation, acute Active Problem 03/25/2019 [facility] Mild cognitive impairment Active Problem 03/25/2019 [facility] BPH (<span ID="[id number]">Confirmed</span>) Active Problem 03/25/2019 [facility] PLMD (<span ID="[id number]">Confirmed</span>) Active Problem 03/25/2019 [facility] Simple obesity Active Problem 03/25/2019 [facility] Trochanteric bursitis, left hip 01/12/2019 [facility] Aftercare following joint replacement surgery 01/12/2019 [facility] Presence of left artificial hip joint 01/12/2019 [facility] Other abnormalities of gait and mobility 01/12/2019 [facility] Weakness 01/12/2019 [facility] Stroke Resolved Problem 03/09/2019 [facility] Hyperlipidemia Resolved Problem 03/09/2019 [facility] Hypertension Resolved Problem 03/09/2019 [facility] BPH (<span ID="[id number]">Confirmed</span>) Active Problem 03/09/2019 [facility] OSTEOARTHRITIS OF HIP, UNSPECIFIED Active [facility] ILLNESS, UNSPECIFIED Active [facility] Medications Medication Details Route Status Patient Instructions Ordering Provider Order Date Source Atorvastatin Calcium (Lipitor) 20 Mg Tablet, 20 Mg Oral Daily Active 11/06/2018 [facility] Celecoxib (Celebrex*) 100 Mg Capsule, 200 Mg Oral Daily Active 11/06/2018 [facility] Dutasteride (Avodart) 0.5 Mg Capsule, 0.5 Mg Oral Daily Active 11/06/2018 [facility] Nebivolol Hcl (Bystolic) 2.5 Mg Tablet, 2.5 Mg Oral Daily Active 11/06/2018 [facility] Tamsulosin Hcl (Flomax*) 0.4 Mg Cap, 0.4 Mg Oral Daily Active 11/06/2018 [facility] Vitamin D3 50,000 intl units oral capsule 50,000 IntlUnit=1 cap, PO, Daily, # 12 cap, 0 Refill(s) Active 08/26/2018 [facility] 24 HR Bupropion Hydrochloride 300 MG Extended Release Tablet [Wellbutrin] 300 mg=1 tab, PO, Q24H, 0 Refill(s) Active 08/26/2018 [facility] Plavix 37.5 mg, 0.5 tab, Route: PO, Drug form: TAB, Daily, Dosing Weight 97.727, kg, Start date: 01/02/17 9:00:00 INFECTION CONTROL PRACTITIONER, Duration: 30 day, Stop date: 01/31/17 9:00:00 CDTNotes: (Same As: Plavix) No Longer Active 01/02/2017 [facility] Docusate Sodium 100 MG Oral Capsule [Colace] 100 mg=1 cap, PO, BID, PRN Constipation, # 20 cap, 0 Refill(s) Active 01/01/2017 [facility] vancomycin 1.5 gm, 250 mL, Route: IV, Drug form: INJ, Q12H, Dosing Weight 97.727, kg, Start date: 01/01/17 10:30:00 INFECTION CONTROL PRACTITIONER, Stop date: 01/31/17 10:00:00 CDTNotes: TIME CRITICAL MEDICATION Same as: Vancocin-NS (pre mixed) Infusion rate 2001 mg: infuse over 2.5 hours Inactive 01/01/2017 [facility] Lipitor 20 mg, 1 tab, Route: PO, Drug form: TAB, Daily, Dosing Weight 97.727, kg, Start date: 12/31/16 20:00:00 INFECTION CONTROL PRACTITIONER, Duration: 30 day, Stop date: 01/29/17 20:00:00 CDTNotes: (Same As: Lipitor) No Longer Active 01/01/2017 [facility] fluconazole fluconazole, 400 mg / 2 tablets, Drug form: MISC, Route: PO, Q24H, 12/31/16 16:00:00 INFECTION CONTROL PRACTITIONER, Duration: 30 day, Stop date: 01/29/17 16:00:00 CDT No Longer Active 12/31/2016 [facility] ferrous sulfate 325 mg, 1 tab, Route: PO, Drug form: TAB, ONCE, Start date: 12/31/16 11:05:00 INFECTION CONTROL PRACTITIONER, Stop date: 12/31/16 11:05:00 CSTNotes: Give with food. iron elemental [id number] as ferrous sulfate Dose=___mg eleme ntal iron Inactive 12/31/2016 [facility] Vancomycin 1.25 gm, 250 mL, Route: IV, Drug form: INJ, Q12H, Dosing Weight 97.727, kg, Start date: 12/31/16 10:00:00 INFECTION CONTROL PRACTITIONER, Duration: 30 day, Stop date: 01/29/17 22:00:00 CDTNotes: TIME CRITICAL MEDICATION Same as: Vancocin-NS (premixed) Infusion rate 2001 mg: infuse over 2.5 hours No Longer Active 12/31/2016 [facility] vancomycin + sodium chloride 0.9% INJ 250 mL 1,000 mg, Route: IVPB, [id number], Start date: 12/31/16 9:00:00 INFECTION CONTROL PRACTITIONER, Duration: 30 day, Stop date: 01/29/17 21:00:00 CDTNotes: TIME CRITICAL MEDICATION (Same As: Vancocin) Infusion rate 2001 mg: infuse over 2.5 hours MEDICATION WASTE Product Size: 1000 mg Product Wasted: ___ mg Inactive 12/31/2016 [facility] isoniazid 150 MG / Rifampin 300 MG Oral Capsule [Rifamate] 2 cap, Route: PO, Dosing Weight 97.727, kg, Daily, Start date: 12/31/16 9:00:00 INFECTION CONTROL PRACTITIONER, Duration: 30 day, Stop date: 01/29/17 9:00:00 CDT No Longer Active 12/31/2016 [facility] ferrous sulfate 325 mg, 1 tab, Route: PO, Drug form: ECTAB, Daily, Dosing Weight 97.727, kg, Start date: 12/31/16 9:00:00 INFECTION CONTROL PRACTITIONER, Stop date: 01/29/17 9:00:00 CDTNotes: Give with food. "Do Not Crush" No Longer Active 12/31/2016 [facility] sodium chloride 0.9% 1000 ml INJ 1,000 mL 1,000 mL, Rate: 500 ml/hr, Infuse over: 2 hr, Route: IV, Dosing Weight 97.727 kg, Total Volume: 1,000, Start date: 12/31/16 7:55:00 INFECTION CONTROL PRACTITIONER, Duration: 1 doses or times, Stop date: 12/31/16 9:54:00 INFECTION CONTROL PRACTITIONER Inactive 12/31/2016 [facility] Rifampin 600 mg, 4 cap, Route: PO, Drug form: CAP, [id number], Dosing Weight 97.727, kg, Start date: 12/30/16 20:00:00 INFECTION CONTROL PRACTITIONER, Duration: 30 day, Stop date: 01/28/17 20:00:00 CDTNotes: (Same as: Rifadin) No Longer Active 12/31/2016 [facility] Vancomycin 1 gm, Route: IVPB, Drug form: INJ, [id number], Dosing Weight 97.727, kg, Start date: 12/30/16 19:00:00 INFECTION CONTROL PRACTITIONER, Stop date: 01/29/17 21:00:00 CDTNotes: TIME CRITICAL MEDICATION (Same As: Vancocin) Infusion rate 2001 mg: infuse over 2.5 hours MEDICATION WASTE Product Size: 1000 mg Product Wasted: ___ mg No Longer Active 12/31/2016 [facility] Diflucan 400 mg, 8 tab, Route: PO, Drug form: TAB, Daily, Dosing Weight 97.727, kg, Start date: 12/30/16 16:00:00 INFECTION CONTROL PRACTITIONER, Duration: 30 day, Stop date: 01/28/17 16:00:00 CDT, Pediatric DosingNotes: (Same as: Diflucan) No Longer Active 12/30/2016 [facility] Aspirin 325 MG Enteric Coated Tablet 325 mg, 1 tab, Route: PO, Drug form: ECTAB, BID, Dosing Weight 97.727, kg, Start date: 12/30/16 9:00:00 INFECTION CONTROL PRACTITIONER, Duration: 30 day, Stop date: 01/28/17 17:00:00 CDTNotes: (Do Not Crush) Do not crush or chew. No Longer Active 12/30/2016 [facility] Zofran 4 mg, 2 mL, Route: IV, Drug form: INJ, Q8H, Dosing Weight 97.727, kg, Start date: 12/30/16 0:00:00 INFECTION CONTROL PRACTITIONER, Duration: 3 doses or times, Stop date: 12/30/16 16:00:00 CSTNotes: (Same as: Zofran) MEDICATION WASTE Product Size: 4 mg Product Wasted: ___ mg Inactive 12/30/2016 [facility] Vancomycin 1,000 mg, Route: IVPB, Q12H, Dosing Weight 97.727, kg, Time Critical Medication, Start date: 12/29/16 22:00:00 INFECTION CONTROL PRACTITIONER, Duration: 2 doses or times, Stop date: 12/30/16 10:00:00 INFECTION CONTROL PRACTITIONER, Pharmacy to adjust dose for renal functionNotes: TIME CRITICAL MEDICATION (Same As: Vancocin) Infusion rate 2001 mg: infuse over 2.5 hours MEDICATION WASTE Product Size: 1000 mg Product Wasted: ___ mg No Longer Active 12/30/2016 [facility] rivaroxaban 10 mg, Route: PO, Q24H, Dosing Weight 97.727, kg, Start date: 12/29/16 18:33:00 INFECTION CONTROL PRACTITIONER, Duration: 30 day, Stop date: 01/27/17 18:33:00 INFECTION CONTROL PRACTITIONER Inactive 12/30/2016 [facility] Saline Flush 0.9% 10 mL, Route: IVP, Drug Form: INJ, Dosing Weight 97.727, kg, Q8H, Start date: 12/29/16 16:00:00 INFECTION CONTROL PRACTITIONER, Duration: 30 day, Stop date: 01/28/17 8:00:00 CDTNotes: preservative free. No Longer Active 12/29/2016 [facility] Lidocaine Hydrochloride 10 MG/ML Injectable Solution 50 mg, 5 mL, Route: INTRADERM, Drug Form: INJ, Dosing Weight 97.727, kg, ONCALL, Start date: 12/29/16 15:00:00 INFECTION CONTROL PRACTITIONER, Duration: 1 day, Stop date: 12/30/16 14:59:00 CSTNotes: (Same as: Xylocaine) No Longer Active 12/29/2016 [facility] Cefazolin 2 gm, 100 mL, Route: IVPB, Drug form: INJ, Q6H, Dosing Weight 97.727, kg, Start date: 12/29/16 15:00:00 INFECTION CONTROL PRACTITIONER, Duration: 6 doses or times, Stop date: 12/30/16 21:00:00 CSTNotes: Same as: Ancef Inactive 12/29/2016 [facility] Saline Flush 0.9% 10 mL, Route: IVP, Drug Form: INJ, Dosing Weight 97.727, kg, PRN, PRN Line Flush, Start date: 12/29/16 14:46:00 INFECTION CONTROL PRACTITIONER, Duration: 30 day, Stop date: 01/28/17 15:45:00 CDTNotes: preservative free. No Longer Active 12/29/2016 [facility] metoprolol tartrate 12.5 mg, 0.5 tab, Route: PO, Drug form: TAB, Q12H, Dosing Weight 97.727, kg, Start date: 12/29/16 14:00:00 INFECTION CONTROL PRACTITIONER, Duration: 30 day, Stop date: 01/28/17 9:00:00 CDTNotes: (Same as: Lopressor) No Longer Active 12/29/2016 [facility] Hydralazine 10 mg, 0.5 mL, Route: IVP, Drug form: INJ, Q20Min, Dosing Weight 97.727, kg, PRN Elevated BP, Start date: 12/29/16 12:42:00 INFECTION CONTROL PRACTITIONER, Duration: 2 doses or times, Stop date: Limited # of timesNotes: (Same as: Apresoline) Push over 5 minutes Inactive 12/29/2016 [facility] Metoprolol 1 mg, 1 mL, Route: IVP, Drug form: INJ, Q5Min, Dosing Weight 97.727, kg, PRN Other -See Comment, Start date: 12/29/16 12:42:00 INFECTION CONTROL PRACTITIONER, Duration: 5 doses or times, Stop date: Limited # of timesNotes: (Same as: Lopressor) Push over 2 minutes Inactive 12/29/2016 [facility] Labetalol 10 mg, 2 mL, Route: IVP, Drug form: INJ, Q5Min, Dosing Weight 97.727, kg, PRN Elevated BP, Start date: 12/29/16 12:42:00 INFECTION CONTROL PRACTITIONER, Duration: 5 doses or times, Stop date: Limited # of times Inactive 12/29/2016 [facility] Morphine 2 mg, 0.2 mL, Route: IVP, Drug form: INJ, Q5Min, Dosing Weight 97.727, kg, PRN Pain Score 4-6, Start date: 12/29/16 12:42:00 INFECTION CONTROL PRACTITIONER, Duration: 5 doses or times, Stop date: [...] Reversal, Initial dose, Start date: 12/29/16 12:42:00 INFECTION CONTROL PRACTITIONER, Duration: 30 day, Stop date: 01/28/17 13:41:00 C DTNotes: (Same as: Romazicon) Inactive 12/29/2016 [facility] Ephedrine 5 mg, 0.1 mL, Route: IVP, Drug form: INJ, Q5Min, Dosing Weight 97.727, kg, PRN Low Blood Pressure, Start date: 12/29/16 12:42:00 INFECTION CONTROL PRACTITIONER, Duration: 30 day, Stop date: 01/28/17 13:41:00 CDTNotes: (Same as: ePHEDrine Sulfate) Inactive 12/29/2016 [facility] Naloxone 0.4 mg, 1 mL, Route: IVP, Drug form: INJ, Q2MIN, Dosing Weight 97.727, kg, PRN Narcotic Reversal, Start date: 12/29/16 12:42:00 INFECTION CONTROL PRACTITIONER, Duration: 8 doses or times, Stop date: [...] Comment, For shivering, Start date: 12/29/16 12:42:00 INFECTION CONTROL PRACTITIONER, Duration: 2 doses or times, Stop date: Limited # of timesNotes: (Same as: Demerol) "Use Precaution in Elderly, Seizure disorders, and Renal impairment" Inactive 12/29/2016 [facility] Ondansetron 4 mg, 2 mL, Route: IVP, Drug form: INJ, ONCE, Dosing Weight 97.727, kg, PRN Nausea & Vomiting, Start date: 12/29/16 12:42:00 CSTNotes: (Same as: Zofran) MEDICATION WASTE Product Size: 4 mg Product Wasted: ___ mg Inactive 12/29/2016 [facility] Hydromorphone 0.5 mg, 0.25 mL, Route: IVP, Drug form: INJ, Q5Min, Dosing Weight 97.727, kg, PRN Pain Score 7-10, Start date: 12/29/16 12:42:00 INFECTION CONTROL PRACTITIONER, Duration: 4 doses or times, Stop date: Limited # of timesNotes: Kameron miranda as Dilaudid Inactive 12/29/2016 [facility] Ondansetron 4 mg, 2 mL, Route: IVP, Drug form: INJ, Q6H, Dosing Weight 97.727, kg, PRN Nausea & Vomiting, Start date: 12/29/16 12:27:00 INFECTION CONTROL PRACTITIONER, Duration: 30 day, Stop date: 01/28/17 12:26:00 CDTNotes: (Same as: Zofran) MEDICATION WASTE Product Size: 4 mg Product Wasted: ___ mg No Longer Active 12/29/2016 [facility] Acetaminophen 325 MG / Hydrocodone Bitartrate 5 MG Oral Tablet [[place] 5/325] 2 tab, Route: PO, Drug Form: TAB, Dosing Weight 97.727, kg, Q4H, PRN Pain Score 7-10, Start date: 12/29/16 12:27:00 INFECTION CONTROL PRACTITIONER, Duration: 30 day, Stop date: 01/28/17 12:26:00 CDTNotes: (Same as: [place] 325/5) Do not exceed 4gm/day of acetaminophen. No Longer Active 12/29/2016 [facility] Tylenol 650 mg, 2 tab, Route: PO, Drug form: TAB, Q6H, Dosing Weight 97.727, kg, PRN Pain Score 1-3, Start date: 12/29/16 12:27:00 INFECTION CONTROL PRACTITIONER, Duration: 30 day, Stop date: 01/28/17 12:26:00 CDTNotes: Do not exceed 4 gm/day. (Same as: Tylenol) No Longer Active 12/29/2016 [facility] Famotidine 20 mg, 1 tab, Route: PO, Drug form: TAB, BID, Dosing Weight 97.727, kg, PRN Indigestion, Start date: 12/29/16 12:27:00 INFECTION CONTROL PRACTITIONER, Duration: 30 day, Stop date: 01/28/17 12:26:00 CDTNotes: (Same as: Pepcid) No Longer Active 12/29/2016 [facility] Acetaminophen 325 MG / Hydrocodone Bitartrate 10 MG Oral Tablet 1 tab, Route: PO, Drug Form: TAB, Dosing Weight 97.727, kg, Q4H, PRN Pain Score 4-6, Start date: 12/29/16 12:27:00 INFECTION CONTROL PRACTITIONER, Duration: 30 day, Stop date: 01/28/17 12:26:00 CDTNotes: Do not exceed 4gm/day of acetaminophen. (Same as: [place] 325/10) No Longer Active 12/29/2016 [facility] Morphine 4 mg, 0.4 mL, Route: IVP, Drug form: INJ, Q4H, Dosing Weight 97.727, kg, PRN Pain Score 7-10, Start date: 12/29/16 12:27:00 INFECTION CONTROL PRACTITIONER, Duration: 30 day, Stop date: 01/28/17 12:26:00 CDTNotes: (Same as:MORPhine Sulfate) No Longer Active 12/29/2016 [facility] POLYETHYLENE GLYCOL 3350 17 gm, 1 pkt, Route: PO, Drug form: PWDR, Daily, Dosing Weight 97.727, kg, PRN Constipation, Start date: 12/29/16 12:27:00 INFECTION CONTROL PRACTITIONER, Duration: 30 day, Stop date: 01/28/17 12:26:00 CDTNotes: Dissolve in 8 oz of water or juice. (Same as: Miralax) No Longer Active 12/29/2016 [facility] Bisacodyl 10 mg, 1 supp, Route: VA, Drug form: SUPP, Daily, Dosing Weight 97.727, kg, PRN Constipation, Start date: 12/29/16 12:27:00 INFECTION CONTROL PRACTITIONER, Duration: 30 day, Stop date: 01/28/17 12:26:00 CDTNotes: (Same As: Dulcolax, [place]-Lax) No Longer Active 12/29/2016 [facility] sodium chloride 0.9% 1000 ml INJ 1,000 mL 1,000 mL, Rate: 85 ml/hr, Infuse over: 11.8 hr, Route: IV, Dosing Weight 97.727 kg, Total Volume: 1,000, When PO intake adequate, okay to saline lock, Start date: 12/29/16 12:27:00 INFECTION CONTROL PRACTITIONER, Duration: 30 day, Stop date: 01/28/17 12:26:00 CDT No Longer Active 12/29/2016 [facility] Lactated Ringers 1,000 mL 1,000 mL, Rate: 50 ml/hr, Infuse over: 20 hr, Route: IV, Dosing Weight 97.727 kg, Total Volume: 1,000, Start date: 12/29/16 10:27:00 INFECTION CONTROL PRACTITIONER, Duration: 30 day, Stop date: 01/28/17 10:26:00 CDT Inactive 12/29/2016 [facility] Ancef 2 gm, Route: IV, ONCE, Dosing Weight 97.727, kg, Start date: 12/29/16 10:26:00 INFECTION CONTROL PRACTITIONER, Stop date: 12/29/16 10:26:00 INFECTION CONTROL PRACTITIONER Inactive 12/29/2016 [facility] Ancef 2 gm, 100 mL, Route: IV, Drug form: INJ, ONCE, Dosing Weight 97.727, kg, Start date: 12/29/16 10:25:00 INFECTION CONTROL PRACTITIONER, Stop date: 12/29/16 10:25:00 CSTNotes: Same as Ancef Inactive 12/29/2016 [facility] Vancomycin 1.5 gm, 250 mL, Route: IV, Drug form: INJ, ONCE, Dosing Weight 97.727, kg, Start date: 12/29/16 10:25:00 INFECTION CONTROL PRACTITIONER, Stop date: 12/29/16 10:25:00 CSTNotes: TIME CRITICAL MEDICATION Same as: Vancocin-NS (pre mixed) Infusion rate 2001 mg: infuse over 2.5 hours No Longer Active 12/29/2016 [facility] ropivacaine 100 mL, Route: InFILtration(local), Drug Form: INJ, ONCE, Start date: 12/29/16 8:22:00 INFECTION CONTROL PRACTITIONER, Stop date: 12/29/16 8:22:00 CSTNotes: NOT FOR IV use Ropivacaine 5 mg/mL (49.25 mL) Epinephrine 1 m g/mL (0.5 mL) Clonidine 0.1 mg/mL (0.8 mL) Ketorolac 30 mg/mL (1 mL) Normal Saline 48.45 mL Inactive 12/29/2016 [facility] Flomax 0.4 mg, 1 cap, Route: PO, Drug form: CAP, Daily, Dosing Weight 97.727, kg, Start date: 12/28/16 9:00:00 INFECTION CONTROL PRACTITIONER, Duration: 30 day, Stop date: 01/26/17 9:00:00 CSTNotes: (Same As: Flomax) "Do Not Crush" No Longer Active 12/28/2016 [facility] Bystolic 2.5 mg, 0.5 tab, Route: PO, Drug form: TAB, Daily, Dosing Weight 97.727, kg, Start date: 12/28/16 9:00:00 INFECTION CONTROL PRACTITIONER, Duration: 30 day, Stop date: 01/26/17 9:00:00 CSTNotes: (same as: Bystolic) No Longer Active 12/28/2016 [facility] Vitamin B-100 1 tab, Route: PO, Drug Form: TAB, Dosing Weight 97.727, kg, Daily, Start date: 12/28/16 9:00:00 INFECTION CONTROL PRACTITIONER, Duration: 30 day, Stop date: 01/26/17 9:00:00 CSTNotes: (Same As: B-Complex) No Longer Active 12/28/2016 [facility] Mobic 15 mg, 2 tab, Route: PO, Drug form: TAB, Daily, Dosing Weight 97.727, kg, Start date: 12/28/16 9:00:00 INFECTION CONTROL PRACTITIONER, Duration: 30 day, Stop date: 01/26/17 9:00:00 CSTNotes: (Same as: Mobic) No Longer Active 12/28/2016 [facility] Lexapro 20 mg, 2 tab, Route: PO, Drug form: TAB, Daily, Dosing Weight 97.727, kg, Start date: 12/28/16 9:00:00 INFECTION CONTROL PRACTITIONER, Duration: 30 day, Stop date: 01/26/17 9:00:00 CSTNotes: (Same as: Lexapro) No Longer Active 12/28/2016 [facility] Avodart 0.5 mg, 1 cap, Route: PO, Drug form: CAP, Daily, Dosing Weight 97.727, kg, Start date: 12/28/16 9:00:00 INFECTION CONTROL PRACTITIONER, Stop date: 01/25/17 21:00:00 CSTNotes: Non-Formulary Drug. (Same As: Avodart) (Do Not Crush) No Longer Active 12/28/2016 [facility] Lipitor 20 mg, 1 tab, Route: PO, Drug form: TAB, Daily, Dosing Weight 97.727, kg, Start date: 12/28/16 9:00:00 INFECTION CONTROL PRACTITIONER, Duration: 30 day, Stop date: 01/26/17 9:00:00 CSTNotes: (Same As: Lipitor) No Longer Active 12/28/2016 [facility] Wellbutrin XL 300 mg, 2 tab, Route: PO, Drug form: ERTAB, Q24H, Dosing Weight 97.727, kg, Start date: 12/28/16 9:00:00 INFECTION CONTROL PRACTITIONER, Stop date: 01/26/17 9:00:00 CSTNotes: (Same as: Wellbutrin XL) "Do Not Crush" No Longer Active 12/28/2016 [facility] Docusate 100 mg, 1 cap, Route: PO, Drug form: CAP, BID, Dosing Weight 97.727, kg, Start date: 12/28/16 9:00:00 INFECTION CONTROL PRACTITIONER, Duration: 30 day, Stop date: 01/26/17 17:00:00 CSTNotes: (Same as: Colace) (Do Not Crush) No Longer Active 12/28/2016 [facility] Acetaminophen 325 MG / Hydrocodone Bitartrate 5 MG Oral Tablet [[place] 5/325] 1 tab, Route: PO, Drug Form: TAB, Dosing Weight 97.727, kg, Q6H, PRN Pain Score 1-3, Start date: 12/27/16 23:05:00 INFECTION CONTROL PRACTITIONER, Duration: 30 day, Stop date: 01/26/17 23:04:00 CSTNotes: (Same as: [place] 325/5) Do not exceed 4gm/day of acetaminophen. No Longer Active 12/28/2016 [facility] influenza virus vaccine, inactivated 0.5 mL, Route: IM, Drug Form: SUSP, ONCALL, Start date: 12/27/16 23:00:00 INFECTION CONTROL PRACTITIONER, Duration: 1 doses or timesNotes: (Same as: Fluzone Quadrivalent, Fluarix Quadrivalent) For 3 years of age and older (0.5 mL IM) Shake well before use No Longer Active 12/28/2016 [facility] Ondansetron 4 MG Disintegrating Tablet 4 mg, 1 tab, Route: PO, Drug form: TABDIS, Q8H, Dosing Weight 97.727, kg, PRN Nausea, Start date: 12/27/16 22:27:00 INFECTION CONTROL PRACTITIONER, Duration: 30 day, Stop date: 01/26/17 22:26:00 [...] day, # 14 tab, 0 Refill(s), Pharmacy: [facility] [place] #2 Active 09/12/2016 [facility] meloxicam 15 MG Oral Tablet [Mobic] 15 mg=1 tab, PO, Daily, # 30 tab, 0 Refill(s), Pharmacy: [facility] #2 Active 09/12/2016 [facility] Aspirin 81 MG Chewable Tablet 81 mg=1 tab, PO, BID, # 56 tab, 0 Refill(s), Pharmacy: [facility] [place] #2 Active 09/12/2016 [facility] Budeprion XL [...] Duration: 30 day, Stop date: 10/11/16 9:00:00 INFECTION CONTROL PRACTITIONER No Longer Active 09/12/2016 [facility] [...] 1 cap, Route: PO, Drug form: CAP, [id number], Dosing Weight 95.455, kg, Start date: 09/11/16 [...] Duration: 30 day, Stop date: 10/11/16 19:38:00 INFECTION CONTROL PRACTITIONER Inactive 09/12/2016 [facility] POLYETHYLENE GLYCOL [...] not exceed 4gm/day of acetaminophen. (Same as: [place] 325/10) No Longer Active 09/12/2016 [facility] sodium chloride 0.9% 1000 ml INJ 1,000 mL 1,000 mL, Rate: 85 ml/hr, Infuse over: 11.8 hr, Route: IV, Dosing Weight 95.455 kg, Total Volume: 1,000, When PO intake adequate, okay to saline lock, Start date: 09/11/16 19:39:00 CDT, Duration: 30 day, Stop date: 10/11/16 19:38:00 INFECTION CONTROL PRACTITIONER No Longer Active 09/12/2016 [facility] Tylenol 650 mg, Route: PO, Drug form: TAB, Q6H, kg, PRN Pain Score 1-3, Start date: 09/11/16 19:39:00 CDT, Duration: 30 day, Stop date: 10/11/16 19:38:00 INFECTION CONTROL PRACTITIONER Inactive 09/12/2016 [facility] Famotidine 20 [...] Duration: 30 day, Stop date: 10/11/16 12:58:00 INFECTION CONTROL PRACTITIONER No Longer Active 09/11/2016 [facility] [...] (Tylenol*) 325 Mg Tablet As Needed for [facility] Aspirin (Aspir 81) 81 Mg Tablet.dr Daily for [facility] Bupropion Hcl (Wellbutrin Sr) 150 Mg Tablet.er Daily [facility] Celecoxib (Celebrex*) 100 Mg Capsule Daily for [facility] Clopidogrel Bisulfate (Plavix) 75 Mg Tablet Daily [facility] Docusate Sodium (Stool Softener) 50 Mg Capsule As Needed for [facility] Escitalopram Oxalate (Lexapro) 10 Mg Tablet Daily [facility] Glucosamine/D3/[place] (Osteo Bi-Flex Caplet) 1 Each Tablet Twice A Day for U Active [facility] Minocycline Hcl 50 Mg Capsule Twice A Day Active [facility] Nebivolol Hcl (Bystolic) 10 Mg Tablet Bedtime Active [facility] Vitamin B Complex 1 Each Capsule Daily for U Active [facility] Allergies, Adverse Reactions, Alerts Substance Category Reaction Severity Reaction type Status Date Reported Comments Source No Known Medication Allergies Assertion Drug allergy [facility] Immunizations Immunization Date Given Site Status Last Updated Comments Source Results Order Name Results Value Reference Range Date Interpretation Comments Source Blood leukocytes automated count (number/volume) 5.74 4.8 - 10.8 11/14/2018 [facility] Blood erythrocytes automated count (number/volume) 4.56 4.3 - 5.7 11/14/2018 [facility] Blood hemoglobin measurement (moles/volume) 13.7 14.0 - 18.0 11/14/2018 [facility] Automated blood hematocrit (volume fraction) 41.1 38.2 - 49.6 11/14/2018 [facility] Automated erythrocyte mean corpuscular volume 90.1 81 - 99 11/14/2018 [facility] Automated erythrocyte mean corpuscular hemoglobin (mass per erythrocyte) 30.0 28 - 32 11/14/2018 [facility] Automated erythrocyte mean corpuscular hemoglobin concentration measurement (mass/volume) 33.3 31 - 35 11/14/2018 [facility] RDW BldCo-Rto 15.7 11.7 - 14.4 11/14/2018 [facility] Automated blood platelet count (count/volume) 162 140 - 360 11/14/2018 [facility] Automated blood segmented neutrophil count as percentage of total leukocytes 56.3 38.7 - 80.0 11/14/2018 [facility] Automated blood lymphocyte count as percentage ot total leukocytes 30.7 18.0 - 39.1 11/14/2018 [facility] Automated blood monocyte count as percentage of total leukocytes 9.2 4.4 - 11.3 11/14/2018 [facility] Automated blood eosinophil count as percentage of total leukocytes 3.1 0.0 - 6.0 11/14/2018 [facility] Automated blood basophil count as percentage of total leukocytes 0.5 0.0 - 1.0 11/14/2018 [facility] IM GRANULOCYTES % 0.2 0.0 - 1.0 11/14/2018 [facility] Automated blood neutrophil count 3.2 2.1 - 6.9 11/14/2018 [facility] Blood lymphocytes count (number/volume) 1.8 1.0 - 3.2 11/14/2018 [facility] Blood monocytes automated count (number/volume) 0.5 0.2 - 0.8 11/14/2018 [facility] Automated blood eosinophil count 0.2 0.0 - 0.4 11/14/2018 [facility] Automated blood basophil count (count/volume) 0.0 0.0 - 0.1 11/14/2018 [facility] Absolute Immature Granulocyte (auto 0.01 0 - 0.1 11/14/2018 [facility] Serum or plasma sodium measurement (moles/volume) 132 136 - 145 11/14/2018 [facility] Serum or plasma potassium measurement (moles/volume) 4.1 3.5 - 5.1 11/14/2018 [facility] Serum or plasma chloride measurement (moles/volume) 101 98 - 107 11/14/2018 [facility] Serum or plasma carbon dioxide, total measurement (moles/volume) 20 22 - 29 11/14/2018 [facility] Serum or plasma anion gap 15.1 8 - 16 11/14/2018 [facility] Serum or plasma urea nitrogen measurement (mass/volume) 14 7 - 26 11/14/2018 [facility] Serum or plasma creatinine measurement (mass/volume) 1.01 0.72 - 1.25 11/14/2018 [facility] Serum or plasma urea nitrogen/creatinine mass ratio 14 6 - 25 11/14/2018 [facility] Estimated glomerular filtration rate (GFR) determination > 60 60 11/14/2018 [facility] Glucose measurement 103 74 - 118 11/14/2018 [facility] Serum or plasma calcium measurement (mass/volume) 9.2 8.4 - 10.2 11/14/2018 [facility] Serum or plasma total bilirubin measurement (mass/volume) 0.6 0.2 - 1.2 11/05/2018 [facility] Aspartate Amino Transf (AST/SGOT) 20 5 - 34 11/05/2018 [facility] Serum or plasma alanine aminotransferase measurement (enzymatic activity/volume) 20 0 - 55 11/05/2018 [facility] Serum or plasma protein measurement (mass/volume) 7.2 6.5 - 8.1 11/05/2018 [facility] Serum or plasma albumin measurement (mass/volume) 3.8 3.5 - 5.0 11/05/2018 [facility] Plasma globulin measurement (mass/volume) 3.4 2.3 - 3.5 11/05/2018 [facility] Serum or plasma albumin/globulin mass ratio 1.1 0.8 - 2.0 11/05/2018 [facility] Serum or plasma alkaline phosphatase measurement (enzymatic activity/volume) 68 40 - 150 11/05/2018 [facility] Serum or plasma triglyceride measurement (mass/volume) 86 0 - 149 11/05/2018 [facility] Serum or plasma cholesterol measurement (mass/volume) 162 0 - 199 11/05/2018 [facility] Serum or plasma cholesterol in LDL measurement (mass/volume) 92 60 - 130 11/05/2018 [facility] Serum or plasma cholesterol in HDL measurement (mass/volume) 53 40 - 60 11/05/2018 [facility] Serum or plasma total cholesterol/cholesterol in HDL mass ratio 3.1 3.9 - 4.7 11/05/2018 [facility] Automated blood basophil count as percentage of total leukocytes 0.4 0.0 - 1.0 11/05/2018 [facility] IM GRANULOCYTES % 0.3 0.0 - 1.0 11/05/2018 [facility] Automated blood neutrophil count 4.6 2.1 - 6.9 11/05/2018 [facility] Blood lymphocytes count (number/volume) 1.9 1.0 - 3.2 11/05/2018 [facility] Blood monocytes automated count (number/volume) 0.9 0.2 - 0.8 11/05/2018 [facility] Automated blood eosinophil count 0.1 0.0 - 0.4 11/05/2018 [facility] Automated blood basophil count (count/volume) 0.0 0.0 - 0.1 11/05/2018 [facility] Absolute Immature Granulocyte (auto 0.02 0 - 0.1 11/05/2018 [facility] Serum or plasma sodium measurement (moles/volume) 137 136 - 145 11/05/2018 [facility] Serum or plasma potassium measurement (moles/volume) 4.4 3.5 - 5.1 11/05/2018 [facility] Serum or plasma chloride measurement (moles/volume) 104 98 - 107 11/05/2018 [facility] Serum or plasma carbon dioxide, total measurement (moles/volume) 24 22 - 29 11/05/2018 [facility] Serum or plasma anion gap 13.4 8 - 16 11/05/2018 [facility] Serum or plasma urea nitrogen measurement (mass/volume) 19 7 - 26 11/05/2018 [facility] Serum or plasma creatinine measurement (mass/volume) 1.08 0.72 - 1.25 11/05/2018 [facility] Serum or plasma urea nitrogen/creatinine mass ratio 18 6 - 25 11/05/2018 [facility] Estimated glomerular filtration rate (GFR) determination > 60 60 11/05/2018 [facility] Glucose measurement 73 74 - 118 11/05/2018 [facility] Serum or plasma calcium measurement (mass/volume) 9.6 8.4 - 10.2 11/05/2018 [facility] Serum or plasma total bilirubin measurement (mass/volume) 0.6 0.2 - 1.2 11/05/2018 [facility] Aspartate Amino Transf (AST/SGOT) 20 5 - 34 11/05/2018 [facility] Serum or plasma alanine aminotransferase measurement (enzymatic activity/volume) 20 0 - 55 11/05/2018 [facility] Serum or plasma protein measurement (mass/volume) 7.2 6.5 - 8.1 11/05/2018 [facility] Serum or plasma albumin measurement (mass/volume) 3.8 3.5 - 5.0 11/05/2018 [facility] Plasma globulin measurement (mass/volume) 3.4 2.3 - 3.5 11/05/2018 [facility] Serum or plasma albumin/globulin mass ratio 1.1 0.8 - 2.0 11/05/2018 [facility] Serum or plasma alkaline phosphatase measurement (enzymatic activity/volume) 68 40 - 150 11/05/2018 [facility] Serum or plasma triglyceride measurement (mass/volume) 86 0 - 149 11/05/2018 [facility] Serum or plasma cholesterol measurement (mass/volume) 162 0 - 199 11/05/2018 [facility] Serum or plasma cholesterol in LDL measurement (mass/volume) 92 60 - 130 11/05/2018 [facility] Serum or plasma cholesterol in HDL measurement (mass/volume) 53 40 - 60 11/05/2018 [facility] Serum or plasma total cholesterol/cholesterol in HDL mass ratio 3.1 3.9 - 4.7 11/05/2018 [facility] TOXICOLOGY Vanco Tr TND 01/03/17 01/01/2017 Ortho [...] CHEST 1 VIEW DATE: 12/29/2016 2:42 PM INFECTION CONTROL PRACTITIONER INDICATION: PICC Line Placement COMPARISON: None TECHNIQUE: [...] Myles Bashir MD 12/29/16 15:34 FINAL REPORT [facility] Pelvis AP DX Pelvis AP DX EXAM: XR PELVIS 1 VIEW DATE: 12/29/2016 12:27 PM INFECTION CONTROL PRACTITIONER INDICATION: Joint deformities COMPARISON: 12/27/2016 TECHNIQUE: A [...] Myles Bashir MD 12/29/16 13:50 FINAL REPORT [facility] CHEM PANEL Phosphorus 3.4 mg/dL 2.5 - [...] HIP 2 VIEW DATE: 12/27/2016 6:04 PM INFECTION CONTROL PRACTITIONER INDICATION: Pain Post Trauma COMPARISON: Radiograph performed [...] Colin Gracia MD 12/28/16 09:15 FINAL REPORT [facility] Hip 1 view DX Hip 1 view DX EXAM: XR LEFT HIP 1 VIEW DATE: 12/27/2016 4:54 PM INFECTION CONTROL PRACTITIONER INDICATION: Pain Post Trauma COMPARISON: Radiograph Performed same day TECHNIQUE: A single crosstable view of the hip DISCUSSION: Crosstable image shows 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 No fracture identified. 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 12/27/2016 - - Read by: Colin Gracia MD Dictated Date/time: 12/28/16 09:13 Electronically Signed by: Colin Gracia MD 12/28/16 09:14 FINAL REPORT [facility] Pelvis AP DX Pelvis AP DX EXAM: XR PELVIS 1 VIEW DATE: 12/27/2016 4:51 PM INFECTION CONTROL PRACTITIONER INDICATION: Pain Post Trauma COMPARISON: Radiograph dated [...] Colin Gracia MD 12/28/16 09:13 FINAL REPORT [facility] ELECTROLYTES Chloride Lvl 105 meq/L 95 - [...] Baylee Obrien MD 09/12/16 08:36 FINAL REPORT [facility] BLOOD BANK RESULTS ABO/Rh A POS 09/11/2016 [facility] BLOOD BANK RESULTS Antibody Scrn Negative (09/11/16 11:20 AM) 09/11/2016 [facility] Vital Signs Vital Sign Value Date Comments Source BMI Calculated 30.06 08/26/2018 [facility] Weight 103.352 08/26/2018 [facility] Height 185.42 cm 08/26/2018 [facility] Heart Rate 61 08/26/2018 [facility] Systolic (mm Hg) 110 08/26/2018 [facility] Diastolic (mm Hg) 74 08/26/2018 [facility] Systolic (mm Hg) 135 01/02/2017 [facility] Diastolic (mm Hg) 84 01/02/2017 [facility] Respitory Rate 18 01/02/2017 [facility] Temperature Oral (F) 98.5 F 01/02/2017 [facility] Heart Rate 78 01/02/2017 [facility] Systolic (mm Hg) 128 01/01/2017 [facility] Diastolic (mm Hg) 73 01/01/2017 [facility] Heart Rate 75 01/01/2017 [facility] Temperature Oral (F) 97.2 F 01/01/2017 [facility] Respitory Rate 18 01/01/2017 [facility] Systolic (mm Hg) 132 01/01/2017 [facility] Diastolic (mm Hg) 77 01/01/2017 [facility] Temperature Oral (F) 98.7 F 01/01/2017 [facility] Heart Rate 83 01/01/2017 [facility] Respitory Rate 18 01/01/2017 [facility] Respitory Rate 15 12/28/2016 [facility] Systolic (mm Hg) 146 12/28/2016 [facility] Diastolic (mm Hg) 88 12/28/2016 [facility] Respitory Rate 18 12/28/2016 [facility] Systolic (mm Hg) 153 12/28/2016 [facility] Diastolic (mm Hg) 85 12/28/2016 [facility] Systolic (mm Hg) 145 12/28/2016 [facility] Diastolic (mm Hg) 90 12/28/2016 [facility] Respitory Rate 15 12/28/2016 [facility] Weight 97.727 12/28/2016 [facility] BMI Calculated 28.43 12/28/2016 [facility] Height 185.42 cm 12/28/2016 [facility] Weight 97.727 12/27/2016 [facility] Height 185.42 cm 12/27/2016 [facility] BMI Calculated 28.43 12/27/2016 [facility] BMI Calculated [...] Provider ADM Date DC Date Status Source [facility] Inpatient [id number] Chester Carlin 09/11/2016 09/13/2016 [facility] Outpatient [id number] Chester Carlin 12/27/2016 12/28/2016 [facility] Inpatient [id number] Chester Carlin 12/28/2016 01/02/2017 [facility] OP Therapy Patients [id number] Giovanni Diane 04/22/2018 05/22/2018 [facility] [id number] Giovanni Benedicto 05/27/2018 06/26/2018 [facility] Neurology [facility] Phone Message [id number] 08/15/2018 08/17/2018 [facility] Primary Care [facility] Outside Medical Records [id number] 08/19/2018 08/21/2018 [facility] Outpatient [id number] [facility] 08/26/2018 [facility] Neurology [facility] Outpatient [id number] [facility] 08/26/2018 08/27/2018 [facility] Neurology [facility] Outside Medical Records [id number] 09/04/2018 09/06/2018 [facility] Clinic [id number] XIMENA MARRERO MD 09/11/2018 [facility] Outpatient [id number] [facility] 10/07/2018 Active [facility] Discharged Inpatient (obs) [id number] ALEXEI QUINN MD 11/06/2018 11/07/2018 [facility] Discharged Inpatient (obs) [id number] ALEXEI QUINN MD 11/14/2018 11/16/2018 [facility] Procedures Procedure Code Date Perfomer Comments Source X-ray of chest, two views [id number] 11/14/2018 [facility] Magnetic resonance imaging of brain without contrast [id number] 09/11/2018 [facility] Biceps tunnel cineplasty [id number] [facility] Ear operations [id number] [facility] Fusion of joint of cervical spine with internal fixation by anterior approach [id number] [facility] Hip joint operations<sup>1</sup> 30304024 10 years ago [facility] Hip replacement [id number] [facility] Laminectomy<sup>2</sup> 445309841 X 3 [facility] Shoulder joint operations [id number] [facility] Biceps tunnel cineplasty [id number] [id number] [id number] [facility] Fusion of joint of cervical spine with internal fixation by anterior approach [id number] [facility] Hip joint operations<sup>1</sup> 89772083 10 years ago [facility] Hip replacement [id number] [facility] Laminectomy<sup>2</sup> 560369887 X 3 [facility] Shoulder joint operations [id number] [facility] Cataract [facility] [id number] [facility] Biceps tunnel cineplasty [id number] [facility] Ear operations [id number] [facility] Fusion of joint of cervical spine with internal fixation by anterior approach [id number] [facility] Hip joint operations<sup>1</sup> 96637684 10 years ago [facility] Hip replacement [id number] [facility] Laminectomy<sup>2</sup> 716180454 X 3 [facility] Shoulder joint operations [id number] [facility] Biceps tunnel cineplasty [id number] [facility] Cataract surgery [id number] [facility] Ear operations [id number] [facility] Fusion of joint of cervical spine with internal fixation by anterior approach [id number] [facility] Hip joint operations<sup>1</sup> 04135822 10 years ago [facility] Hip replacement [id number] [facility] Laminectomy<sup>2</sup> 010760988 X 3 [facility] Shoulder joint operations [id number] [facility]
--- OUTSIDE RECORDS SUMMARY | 2019-04-10 20:48 | XMS REPORT | Summary of Care ---
Author Author [facility] Organization [facility] Address Unknown Phone Unavailable Encounter TICO Dubois(SCAR) [id number] Date(s): 08/26/18 - 08/26/18 [facility] [address] [place] [address]- Discharge Disposition: Home or Self Care Attending [...]
--- NOTE | 2019-04-10 22:04 | Diagnostic Imaging Report ---
CT BRAIN [facility] HISTORY: Trauma COMPARISON: MRI of the brain 09/11/2018 Technique: Noncontrast axial scans were obtained from skull base to the vertex. Coronal and sagittal reconstructions obtained from the axial data. One or more of the following dose reduction techniques were used: Automated exposure control, adjustment of the mA and/or kV according to patient size, and/or utilization of iterative reconstruction technique. DISCUSSION: Scalp/Skull: Unremarkable. Brain sulci: Prominent. Ventricles: Compensatory dilatation. Extra-axial spaces: No masses or fluid collections. Carotid and vertebral artery calcifications are present. Parenchyma: Mild bilateral deep white matter hypodensity is likely chronic microvascular ischemic change. 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 Otherwise, no masses, hemorrhage, or large vascular territory acute infarct. Dural sinuses: No abnormal densities. Sellar/Suprasellar region: Intact. Skull base: Intact. Incidental findings: Both ocular lenses are thinned. IMPRESSION: 1. No acute intracranial abnormalities. 2. Mild supratentorial chronic microvascular ischemic change. Generalized cerebral volume loss. 3. 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 Signed by: Dr. Jared Esposito M.D. on 04/10/2019 10:01 PM
[2019-04-10] MEDS ORDERED: HYDROCODONE/APAP 5MG-325MG TAB PO ONE (22:15)
--- NOTE | 2019-04-10 22:15 | Diagnostic Imaging Report ---
CT C-SPINE W/O - [facility] HISTORY: Trauma COMPARISON: Report from cervical spine CT dated 06/24/2009 (images not available) TECHNIQUE: CT of the cervical spine without contrast. Sagittal and coronal reformations were created. One or more of the following dose reduction techniques were used: Automated exposure control, adjustment of the mA and/or kV according to patient size, and/or utilization of iterative reconstruction technique. FINDINGS: Bone demineralization limits evaluation. ACDF changes from C4 to C7 with laminectomies are present. Associated hardware streak artifacts obscure some details. Cervical lordosis is straightened. There is no significant scoliosis. No definite acute fracture or compression deformity is seen. Advanced atlantoaxial arthrosis is present. The craniocervical junction is otherwise intact. No gross spinal canal masses are seen. The paravertebral and paraspinal soft tissues are unremarkable. There are moderate spondylotic changes at C2-C3 and C3-C4. Multilevel advanced bilateral facet arthrosis is present. There is associated grade 1 anterolisthesis of C2 on C3. There is fusion of the right C3-C4 and left C4-C5 facet joints. Associated multilevel canal stenoses (due to posterior disc osteophyte complexes and ligamentum flavum thickening) are present - moderate to severe at C2-C3. Multilevel bilateral foraminal stenoses are due to uncovertebral and facet arthrosis. Mild right carotid bulb calcified plaque is present. A stent is seen at the left carotid bulb. Left maxillary sinus retention cyst is present. IMPRESSION: 1. No acute osseous abnormalities. 2. ACDF changes from C4 to C7. 3. Moderate spondylosis above the fusion levels. Multilevel advanced bilateral facet arthrosis with grade 1 anterolisthesis of C2 on C3. 4. Multilevel degenerative canal stenoses - moderate to severe at C2-C3. Signed by: Dr. Jared Esposito M.D. on 04/10/2019 10:11 PM
--- NOTE | 2019-04-10 22:21 | Diagnostic Imaging Report ---
CT THORACIC SPINE [facility] HISTORY: Trauma COMPARISON: Chest radiograph 11/14/2018 TECHNIQUE: Axial CT images of the thoracic spine were obtained without intravenous contrast. Coronal/sagittal reformations were created. One or more of the following dose reduction techniques were used: Automated exposure control, adjustment of the mA and/or kV according to patient size, and/or utilization of iterative reconstruction technique. FINDINGS: Bone demineralization limits osseous evaluation. Thoracic kyphosis is preserved. There is no significant scoliosis or subluxation. No definite acute fracture or compression deformity is seen. No gross spinal canal mass is seen. The paravertebral and paraspinal soft tissues are unremarkable. Moderate multilevel spondylotic changes are present. No gross canal stenosis is seen. Mild dependent atelectasis in the lungs. Intracardiac leads are partially visualized. Aortic and coronary artery calcifications are present. There are apparent gastric fundoplication changes. IMPRESSION: 1. No acute osseous abnormalities. 2. Moderate multilevel thoracic spondylosis. Signed by: Dr. Jared Esposito M.D. on 04/10/2019 10:17 PM
[2019-04-10] MEDS ORDERED: METOPROLOL TARTRATE 50 MG TAB ONE (22:40)
[2019-04-10] MEDS ORDERED: KETOROLAC TROMETHAMINE 60 MG/2 ML VIAL ONE (22:43)
[2019-04-10] MEDS ORDERED: KETOROLAC TROMETHAMINE 60 MG/2 ML VIAL IM ONE (23:00)
[2019-04-10] MEDS ORDERED: METOPROLOL TARTRATE 25 MG TAB PO ONE (23:00)
== END 2019-04-10 23:24 | disposition home or self-care (01) ==
LOC: FSED 20:44
DX: M54.2 Cervicalgia (principal); S00.83XA Contusion of other part of head, initial encounter; S16.1XXA Strain of muscle, fascia and tendon at neck level, initial encounter; M54.6 Pain in thoracic spine; S90.01XA Contusion of right ankle, initial encounter; S90.31XA Contusion of right foot, initial encounter; W01.0XXA Fall on same level from slipping, tripping and stumbling without subsequent striking against object, initial encounter; Y92.39 Other specified sports and athletic area as the place of occurrence of the external cause; I10 Essential (primary) hypertension
CPT/HCPCS: 70450; 72125; 72128; 99283; J1885

== ENCOUNTER → 2019-08-04 | Outpatient (CLI) | payer MEDICARE ==
--- NOTE | 2019-08-04 13:41 | Diagnostic Imaging Report ---
CT CERVICAL SPINE [facility] HISTORY: Neck surgery 6 weeks ago COMPARISON: Cervical spine and thoracic CT 04/10/2019 TECHNIQUE: CT of the cervical spine without contrast. Sagittal and coronal reformations were created. One or more of the following dose reduction techniques were used: Automated exposure control, adjustment of the mA and/or kV according to patient size, and/or utilization of iterative reconstruction technique. FINDINGS: Mild bone demineralization limits osseous evaluation. There are interval posterior fusion changes from C2 to C4 with laminectomies. No evidence for immediate hardware failure or loosening is seen. ACDF changes at C4-C7 are otherwise stable. Associated hardware streak artifacts obscure some details. Cervical lordosis is straightened. There is no significant scoliosis. Otherwise, no definite acute fracture or compression deformity is seen. Advanced atlantoaxial arthrosis is unchanged. The craniocervical junction is otherwise intact. Posterior incision changes are noted. The paravertebral and paraspinal soft tissues are otherwise grossly unremarkable. Moderate spondylosis at C2-C3 and C3-C4 is unchanged. Advanced spondylosis from C7-T1 to T2-T3 is now visualized. Multilevel bilateral facet arthrosis is again noted. There is unchanged associated grade 1 anterolisthesis of C2 on C3 and C3 on C4. Minimal grade 1 anterolisthesis of T1 on T2 is now seen. Multilevel bilateral foraminal stenoses due to uncovertebral and facet arthrosis are present. The spinal canal is poorly evaluated due to streak and beam hardening artifacts. There is mild scarring in the lung apices. Left subclavian leads are partially visualized. Mild right carotid bulb calcified plaque is present. Left carotid bulb stent is present. IMPRESSION: 1. Interval posterior fusion changes from C2 to C4 with laminectomies. No evidence for immediate hardware failure or loosening. 2. Otherwise, no acute osseous abnormalities. 3. ACDF changes from C4 to C7. 4. Unchanged moderate cervical spondylosis above the fusion levels and severe upper thoracic spondylosis. Signed by: Dr. Jared Esposito M.D. on 08/04/2019 1:38 PM
== END ==
LOC: CT 12:49
PROVIDERS: ATTEND Neurological Surgery
DX: M43.11 Spondylolisthesis, occipito-atlanto-axial region (principal)
CPT/HCPCS: 72125

== ENCOUNTER → 2020-04-16 | Outpatient (CLI) | payer MEDICARE ==
[~2020-04-16] MED LIST changes: +IOPAMIDOL 370 MG/ML 200 ML INFUS..BTL INJ ONE; +SODIUM CHLORIDE 0.9% 100 ML ONE
[2020-04-16 17:23] LABS: BLOOD UREA NITROGEN 17 mg/dL (7-26); BUN/CREATININE RATIO 17 (6-25); CREATININE, SERUM 1.02 mg/dL (0.72-1.25); EST GLOMERULAR FILTRATION RATE > 60 ML/MIN (60-)
--- NOTE | 2020-04-19 09:55 | Diagnostic Imaging Report ---
EXAM: CTA of the Abdominal Aorta and Pelvic Arteries WITH Contrast INDICATION: Abdominal aortic aneurysm follow-up COMPARISON: 04/09/2019 TECHNIQUE: Multi-detector CT technology was employed. CTA of the abdomen and pelvis was performed after the administration of IV contrast. IV CONTRAST: 150 mL of Omnipaque 350 ORAL CONTRAST: None COMPLICATIONS: None RADIATION DOSE: Total DLP: 537 mGy*cm Estimated effective dose: (DLP x 0.015 x size factor) mSv CTDIvol has been reviewed. It is below the limits set by the Radiation Protocol Committee (RPC). Dose modulation, iterative reconstruction, and/or weight based adjustment of the mA/kV was utilized to reduce the radiation dose to as low as reasonably achievable. For optimization of anatomic evaluation, multiplanar reconstruction, maximum intensity projections, and advanced 3-D off-line postprocessing were performed on a dedicated stand-alone workstation under the direct supervision of the interpreting physician. FINDINGS: Potential study limitations: None. VASCULAR WITH ADVANCED 3-D OFF-LINE POSTPROCESSING: Stable ectasia of the abdominal aorta. Unchanged multifocal aneurysmal dilatation of the abdominal aorta that measures up to 3.5 cm in maximum caliber proximally (image 82) and 3.6 cm distally, near the origin of the inferior mesenteric artery (image 96). Mild mural plaque along the aneurysms. No acute aortic pathology. The celiac axis, SMA, and CHANA are patent. There are single renal arteries bilaterally, both of which appear patent. Mild fusiform dilatation of the left renal artery proximal branches is unchanged. The pelvic arteries are normal in caliber and contour. There are mild atherosclerotic changes of the pelvic arteries. LOWER CHEST: The lung bases remain clear. A large hiatal hernia is unchanged. ABDOMEN: Unchanged right renal lower pole cyst. No hydronephrosis. The liver and spleen are unremarkable. Mild fatty atrophy of the pancreas. The adrenal glands appear normal. PELVIS: There is no significant retroperitoneal adenopathy. No free fluid or free air within the abdomen or pelvis. The bowel appears unremarkable. The urinary bladder appears normal. BONES: No acute osseous abnormality. Advanced degenerative change. IMPRESSION: Unchanged aneurysmal dilatation of the infrarenal abdominal aorta as described above, with maximum aortic caliber again 3.6 cm. Signed by: Chester Baum MD on 04/19/2020 9:52 AM
== END ==
LOC: CT 15:46
PROVIDERS: ATTEND Internal Medicine Interventional Cardiology
DX: I71.4 Abdominal aortic aneurysm, without rupture (principal)
CPT/HCPCS: 36415; 74175; 82565; 84520; J7050; Q9967